=== PATIENT | female | born 1950 | race Caucasian/White ===

== ENCOUNTER 2016-05-09 13:18 | Emergency (ER) | payer MEDICARE, OTHER ==
[2016-05-09 14:08] VITALS: BP 179/85
--- NOTE | 2016-05-09 14:53 | RAD ---
INDICATION: Left hand pain at the base of the third and fourth metacarpals after a fall COMPARISON: None. TECHNIQUE: 4 views left wrist. REPORT: The visualized bones are properly aligned and well corticated. Degenerative changes include sclerotic change and bony remodeling at the metacarpal trapezium joint with a small degree of radial subluxation of the metacarpal relative to the carpal bones. There is mild narrowing at the radiocarpal joint with sclerotic changes distal radius. There is no acute fracture, dislocation or other focal osseous abnormality. IMPRESSION: Degenerative changes as described above without radiographic identification of acute fracture or dislocation. If the patient's symptoms persist, follow-up imaging is recommended.
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
== END 2016-05-09 15:17 | disposition home or self-care (01) ==
LOC: UCEAST 13:18
DX: S63.502A Unspecified sprain of left wrist, initial encounter (principal); W18.30XA Fall on same level, unspecified, initial encounter; Y93.K1 Activity, walking an animal; I10 Essential (primary) hypertension; Z88.5 Allergy status to narcotic agent; Z88.4 Allergy status to anesthetic agent; Z91.030 Bee allergy status; Z88.2 Allergy status to sulfonamides; Z91.048 Other nonmedicinal substance allergy status; G43.909 Migraine, unspecified, not intractable, without status migrainosus
CPT/HCPCS: 99212; G0463

== ENCOUNTER 2016-07-28 08:45 | Emergency (ER) | payer OTHER ==
[2016-07-28 08:54] VITALS: BP 151/86
--- NOTE | 2016-07-28 11:01 | UC ---
Annalee Campos Alok, scribed for Roger Sharma MD on 07/28/16 at 0905 . Cardiac HPI - HPI Summary HPI Summary: 65F presents to the [facility] with CP at the mid-sternal starting 2 days ago. Pt states that 2 nights ago experiencing sharp CP waking her up in the night lasting 2.5 hours before subsiding after taking 3 rolaids. At worst this pain was at a 8 out of 10 in severity. Since then, pt c/o chest "heaviness" at a 2/ 10 in severity. Pt states her CP is worse when supine and worsens with food. Pt also notes dizziness. Pt denies diaphoresis, nausea, or SOB. PMHx includes hypotension, HLD, h/o migraine, GERD, hiatal hernia, chronic lower back pain, and chronic lower extremity edema. Pt takes 360 mg Propranolol, Protonics, and Excedrin Migraine. Pt took Excedrin Migraine today [employer] DES[employer]. - History of Current Complaint Chief Complaint: UCChestPain Stated Complaint: CHEST COMPLAINT Hx Obtained From: Patient Onset/Duration: Lasting Days, Still Present Initial Severity: Moderate Current Severity: Moderate Pain Intensity: 3 Chest Pain Location: Mid Sternal Character: Heaviness - today, Sharp/Stabbing - 3 days ago Aggravating: Position Alleviating: Medication - Rolaid Associated Signs & Symptoms: Positive: Chest Pain, Dizziness. Negative: SOB, Fever, Nausea/Vomiting - Allergy/Home Medications Allergies/Adverse Reactions: Allergies Allergy/AdvReac Type Severity Reaction Status Date / Time Naloxone [From Talwin Nx] Allergy Unknown Unknown Verified 07/28/16 08:55 Reaction Details Oxycodone [From Oxycontin] Allergy Unknown Unknown Verified 07/28/16 08:55 Reaction Details Pentazocine [From Talwin Nx] Allergy Unknown Unknown Verified 07/28/16 08:55 Reaction Details Procaine [From Novocain] Allergy Unknown Unknown Verified 07/28/16 08:55 Reaction Details Verapamil [From Calan SR] Allergy Unknown Unknown Verified 07/28/16 08:55 Reaction Details Adhesive Tape Allergy Rash Verified 07/28/16 08:55 Prednisone Allergy Unknown Verified 07/28/16 08:55 Reaction Details Pregabalin [From Lyrica] Allergy Hives/Diff. Verified 07/28/16 08:56 Breathing/I tching Sulfa Drugs Allergy Unknown Verified 07/28/16 08:55 Reaction Details bees Allergy Unknown Uncoded 07/28/16 08:55 Reaction Details PMH/Surg Hx/FS Hx/Imm Hx - Additional Past Medical History Additional PMH: HX; HYPOTENSION GI/ History: Gastroesophageal Reflux - Surgical History Surgical History: Yes Surgery Procedure, Year, and Place: [facility]) inguinal hernia repair w/ mesh, [facility]right) inguinal hernia repair w/mesh,. [facility] (right) wrist , [facility] (left) carpal tunnel, 07/18 [facility] gastroscopy w/esophageal biopsy + colonscopy w/biopsy, 06/20 [facility] (right) carpal tunnel, 08/20 [facility] (left) carpal tunnel, 03/24 [facility]. colonscopy w/biopsy, 12/26 [facility] gastroscopy w/CLOtest & biopsy, tonsilectomy, ovarian cyst removal, tubal ligation - Family History Known Family History: Positive: Cardiac Disease, Hypertension - Social History Lives: With Family Alcohol Use: Occasionally Substance Use Type: None, Marijuana Smoking Status (MU): Never Smoked Tobacco Review of Systems Constitutional: Negative Respiratory: Negative Cardiovascular: Chest Pain Musculoskeletal: Negative All Other Systems Reviewed And Are Negative: Yes Physical Exam Triage Information Reviewed: Yes Appearance: Well-Appearing, No Pain Distress Vital Signs: Initial Vital Signs Temp 96.9 F 07/28/16 08:50 Pulse 57 07/28/16 08:50 Resp 20 07/28/16 08:50 BP 151/86 07/28/16 08:50 Pulse Ox 98 07/28/16 08:50 Vital Signs Reviewed: Yes Eyes: Positive: Other: - EOMI, ROXANN ENT Exam: Normal Neck: Positive: Supple, Nontender Respiratory: Positive: Lungs clear, Normal breath sounds Cardiovascular: Positive: Bradycardia Abdomen Description: Positive: Soft, Other: - Mild tenderness of the Epigastrium Bowel Sounds: Positive: Present Musculoskeletal Exam: Normal Musculoskeletal: Positive: Strength Intact, ROM Intact Neurological Exam: Normal Neurological: Positive: Other: - alert & oriented x3. Sensory/Motor Intact Psychological: Positive: Other: - affect/mood appropriate Skin: Positive: Other - warm, dry, color reflects adequate perfusion Diagnostics - EKG Cardiac Rate: Bradycardia - 55 bpm Cardiac Rhythm: Other Rhythm: New - TIME: 0848. Flip T-waves in III Ectopy: None - Assessment/Plan Course Of Treatment: Pt medications reviewed this visit. TOLD THE PATIENT TO BE TRANSPORTED TO ED BY AMBULANCE. SHE DECLINED. SHE STATED SHE NEEDED TO CARE FOR HER GRANDSON AND WOULD GO TO THE ED AFTER SHE TOOK CARE OF HIM. I DISCUSSED RISKS OF NOT HAVING IMMEDIATE CARE. PATIENT SIGNED THE AMA FORM. - Clinical Impression Provider Diagnoses: CHEST AND EPIGASTRIC PAIN. Discharge - Discharge Plan Condition: Guarded Disposition: AGAINST MEDICAL ADVICE Referrals: Ghulam Castellon MD [Primary Care Provider] - The documentation as recorded by the Annalee chirinos Alok accurately reflects the service I personally performed and the decisions made by me, Roger Sharma MD.
== END 2016-07-28 09:15 | disposition left against medical advice (07) ==
LOC: UCEAST 08:45
DX: R07.9 Chest pain, unspecified (principal); R10.13 Epigastric pain; Z88.5 Allergy status to narcotic agent; Z88.2 Allergy status to sulfonamides
CPT/HCPCS: 93005; 99202; G0463

== ENCOUNTER 2016-08-05 12:20 | Observation (INO) | payer MEDICARE, OTHER ==
[2016-08-05] MEDS ORDERED: NS 0.9% 1000 ML* 1,000 ML IV ONE (15:01)
[2016-08-05] MEDS ORDERED: Aspirin Low Dose CHEW TAB* 81 MG PO ONE (15:01)
[2016-08-05] MEDS ORDERED: Pantoprazole IV* 40 MG IV ONE (15:04)
[2016-08-05 15:29] LABS: Hematocrit 40 % (35-47); Hemoglobin 13.1 g/dl (12.0-16.0); Mean Corpuscular HGB Conc 33 g/dl (31-36); Mean Corpuscular Hemoglobin 29 pg (27-31); Mean Corpuscular Volume 90 fL (80-97); Mean Platelet Volume 9 um3 (7.4-10.4); Red Blood Count 4.44 10^6/ul (4.0-5.4); Red Cell Distribution Width 13 % (10.5-15); White Blood Count 7.8 10^3/ul (3.5-10.8)
[2016-08-05 15:44] LABS: Albumin 3.7 g/dL (3.2-5.2); BUN/Creatinine Ratio 17.2 (8-20); Calcium 9.2 mg/dL (8.6-10.3); EGFR African American 83.8 (>60); EGFR Non-African American 65.1 (>60); Globulin 2.9 g/dL (2-4); Total Bilirubin 0.7 mg/dL (0.2-1.0); Total Protein 6.6 g/dL (6.4-8.9)
[2016-08-05 15:46] LABS: Troponin I 0.01 ng/mL (<0.04)
[2016-08-05 15:49] LABS: Potassium 3.7 mmol/L (3.5-5.0)
--- NOTE | 2016-08-05 16:29 | RAD ---
INDICATION: Chest pain. Pneumonia. CHF COMPARISON: August 01, 1999 TECHNIQUE: PA and lateral dual-energy views were obtained. FINDINGS: Bones/Soft Tissues: There are no acute bony findings. Cardiomediastinal: The cardiomediastinal silhouette is normal. Lungs: There are no infiltrates. Pleura: There are no pleural effusions. Other: None IMPRESSION: NO ACTIVE DISEASE
--- NOTE | 2016-08-05 16:29 | RAD ---
INDICATION: Right upper quadrant pain. COMPARISON: Comparison is made with a prior CT of the abdomen and pelvis from December 20, 2014. TECHNIQUE: Multiple real-time images of the right upper quadrant were obtained. FINDINGS: There is sludge present within the gallbladder. No gallstones are seen. No gallbladder wall thickening is noted. No positive sonographic Gramajo sign was present. No intra or extrahepatic ductal distention is present. The common bile duct measured 0.5 cm in diameter. The liver is normal in size without significant focal abnormality. The pancreas is partially obscured by overlying bowel gas. The right kidney is normal in size without evidence for hydronephrosis. IMPRESSION: SLUDGE WITHIN THE GALLBLADDER WITHOUT EVIDENCE FOR ACUTE CHOLECYSTITIS.
[2016-08-05] MEDS ORDERED: Al Hydrox/Mg Hydrox/Simet LIQ* 30 ML UDC PO PRN (18:36)
[2016-08-05] MEDS ORDERED: Ondansetron INJ* 2 MG/ML VIAL IV PRN (18:36)
[2016-08-05] MEDS ORDERED: Morphine ORAL.SOLN 10 mg* 2 MG/ML UDC 5 ml PO PRN (18:38)
[2016-08-05] MEDS ORDERED: Lidocaine PATCH 5%* 1 PATCH TRANSDERM PRN (18:38)
[2016-08-05] MEDS ORDERED: Polyethylene Glycol 3350* 17 GM PACKET PO PRN (18:38)
[2016-08-05] MEDS ORDERED: Magnesium CITRATE* 300 ML BTL PO ONE (18:38)
[2016-08-05] MEDS ORDERED: BUTALBITAL ASPIRIN CAFFEINE PO PRN (18:38)
--- NOTE | 2016-08-05 18:41 | ED ---
Steven Campos Salem, scribed for Mitchell Gould MD on 08/05/16 at 1503 . HPI Chest Pain - HPI Summary HPI Summary: Patient is a 65 y/o F who presents to the ED with intermittent mid-sternal chest discomfort since yesterday (resolved last night, but returned this morning at 0700). She states pain radiates into her back in between her shoulder blades. Sx began 11 days ago in the middle of the night and lasted 2.5 hours. It then returned 1 weak ago and lasted 1 hour, before returning yesterday. She denies SOB, fever, chills, palpitations, pain in calves, or diaphoresis, but reports nausea, uncomfortable abd, and constipation. Pain is not aggravated with exertion, but is with PO intake. Thus, she denies eating today. Pt states that she does not usually eat before going to sleep. She states that she has chronic discomfort from a hiatal hernia. Denies recent travel or trauma. She reports hx of GERD controlled with Protonix. She also reports taking Propranolol for migraines and ASA every day (except today). - History of Current Complaint Chief Complaint: EDChestPainROMI Time Seen by Provider: 08/05/16 14:09 Hx Obtained From: Patient Onset/Duration: Started Days Ago, Atraumatic, Still Present Time of Onset: 07:00 Timing: Intermittent Initial Severity: Moderate Current Severity: Moderate Pain Intensity: 7 Pain Scale Used: 0-10 Numeric Chest Pain Location: Mid Sternal Chest Pain Radiates: Yes Chest Pain Radiates To:: Back Character: Other: - Discomfort. Aggravating Factor(s): Other: - PO intake. Alleviating Factor(s): Nothing Associated Signs and Symptoms: Positive: Chest Pain - Allergy/Home Medications Allergies/Adverse Reactions: Allergies Allergy/AdvReac Type Severity Reaction Status Date / Time Naloxone [From Talwin Nx] Allergy Unknown Unknown Verified 07/28/16 08:55 Reaction Details Oxycodone [From Oxycontin] Allergy Unknown Unknown Verified 07/28/16 08:55 Reaction Details Pentazocine [From Talwin Nx] Allergy Unknown Unknown Verified 07/28/16 08:55 Reaction Details Procaine [From Novocain] Allergy Unknown Unknown Verified 07/28/16 08:55 Reaction Details Verapamil [From Calan SR] Allergy Unknown Unknown Verified 07/28/16 08:55 Reaction Details Adhesive Tape Allergy Rash Verified 07/28/16 08:55 Prednisone Allergy Unknown Verified 07/28/16 08:55 Reaction Details Pregabalin [From Lyrica] Allergy Hives/Diff. Verified 07/28/16 08:56 Breathing/I tching Sulfa Drugs Allergy Unknown Verified 07/28/16 08:55 Reaction Details bees Allergy Unknown Uncoded 07/28/16 08:55 Reaction Details Home Medications: Home Medications Biotin 5,000 mcg PO DAILY 08/05/16 [History Confirmed 08/05/16] Ftszegsoca-Ktyqmkw-Knyhvzju [Butalbital/Aspirin/Caffei 50-325-40 mg] 1 cap PO Q4HR PRN 08/05/16 [History Confirmed 08/05/16] Cyclosporine 0.05% OPHTH (NF) [Restasis 0.05% OPHTH] 1 drop BOTH EYES BID [History Confirmed 08/05/16] Oykpioqkulb-YYA-Kax C-Manganes [Glucosamine MSM Complex] 1 tab PO BID 08/05/16 [ History Confirmed 08/05/16] Lysine HCl [l-Lysine] 500 mg PO TID 08/05/16 [History Confirmed 08/05/16] Meloxicam(NF) [Mobic(NF)] 15 mg PO DAILY 08/05/16 [History Confirmed 08/05/16] Morphine TAB (NF) 15 mg PO BID PRN 08/05/16 [History Confirmed 08/05/16] Morphine TAB Extended Rel(*) [Ms Contin(*)] 30 mg PO BID 08/05/16 [History Confirmed 08/05/16] Pantoprazole TAB (NF) [Protonix TAB (NF)] 40 mg PO DAILY 08/05/16 [History Confirmed 08/05/16] Polyethylene Glycol 3350* [Miralax*] 17 gm PO DAILY PRN 08/05/16 [History Confirmed 08/05/16] Polyethylene Glycol 3350* [Miralax*] 17 gm PO DAILY PRN 08/05/16 [History Confirmed 08/05/16] Prasterone (Dhea) [Dhea 50] 50 mg PO BID 08/05/16 [History Confirmed 08/05/16] Propranolol TAB* [Inderal TAB*] 60 mg PO BID 08/05/16 [History Confirmed ] Propranolol TAB* [Inderal TAB*] 60 mg PO TID 08/05/16 [History Confirmed ] Simvastatin TAB(NF) [Zocor(NF)] 20 mg PO DAILY 08/05/16 [History Confirmed 08/05] PMH/Surg Hx/FS Hx/Imm Hx Endocrine/Hematology History: Denies: Hx Diabetes, Hx Thyroid Disease Cardiovascular History: Reports: Hx Hypercholesterolemia Denies: Hx Congestive Heart Failure, Hx Hypertension Respiratory History: Denies: Hx Asthma, Hx Chronic Obstructive Pulmonary Disease (COPD) GI History: Reports: Hx Diverticulosis, Other GI Disorders - (left & right) inguinal hernia repairs w/mesh insertion Denies: Hx Ulcer History: Denies: Hx Renal Disease Musculoskeletal History: Reports: Hx Fibromyalgia, Other Musculoskeletal History - ankylosing spondylitis, TMJ Neurological History: Reports: Hx Migraine - Surgical History Surgery Procedure, Year, and Place: [facility] [place] w/ mesh, [facility] [place] inguinal hernia repair w/mesh,. [facility] (right) wrist , [facility] (left) carpal tunnel, 07/18 [facility] [place] w/esophageal biopsy + colonscopy w/biopsy, 06/20 [facility] (right) carpal tunnel, 08/20 [facility] (left) carpal tunnel, 03/24 [facility]. colonscopy w/biopsy, 12/26 [facility] [place] w/CLOtest & biopsy, tonsilectomy, ovarian cyst removal, tubal ligation Infectious Disease History: No Infectious Disease History: Denies: Hx Clostridium Difficile, Hx Hepatitis, Hx Human Immunodeficiency Virus (HIV), Hx of Known/Suspected MRSA, Hx Shingles, Hx Tuberculosis, Hx Known/ Suspected VRE, Hx Known/Suspected VRSA, History Other Infectious Disease, Traveled Outside the [place] in Last 30 Days - Family History Known Family History: Positive: Cardiac Disease, Hypertension, Other - Blood clots. Pancreatitis. - Social History Alcohol Use: Occasionally Hx Substance Use: Yes Substance Use Type: Reports: Marijuana Substance Use Comment - Amount & Last Used: Occasionally for migraines Hx Tobacco Use: No Smoking Status (MU): Never Smoked Tobacco Review of Systems Negative: Fever, Chills, Skin Diaphoresis Positive: Chest Pain. Negative: Palpitations Negative: Shortness Of Breath Positive: Abdominal Pain, Nausea Positive: other - Constipation. Musculoskeletal: Other - No pain in calves. All Other Systems Reviewed And Are Negative: Yes Physical Exam - Summary Physical Exam Summary: The patient is well-nourished in no acute distress and in no acute pain. Alert and cooperative. The skin is warm and dry and skin color reflects adequate perfusion. HEENT: The head is normocephalic and atraumatic. The pupils are equal and reactive. The conjunctivae are clear and without drainage. Nares are patent and without drainage. Mouth reveals moist mucous membranes and the throat is without erythema and exudate. The external ears are intact. The ear canals are patent and without drainage. The tympanic membranes are intact. Neck is supple with full range of motion and non-tender. There are no carotid bruits. There is no neck vein distension. Respiratory: Reproducible chest wall pain. Lungs are clear to auscultation and breath sounds are symmetrical and equal. Cardiovascular: Hear is regular rate and rhythm. There is no murmur or rub auscultated. There is no peripheral edema and pulses are symmetrical and equal. Abdomen: The abdomen is soft. Marked epigastric and RUQ pain. There are normal bowel sounds heard in all four quadrants and there is no organomegaly palpated. Musculoskeletal: There is no back pain noted. Extremities are non-tender with full range of motion. There is good capillary refill. Neurological: Patient is alert and oriented to person, place and time. The patient has symmetrical motor strength in all four extremities. Psychiatric: The patient has an appropriate affect and does not exhibit any anxiety or depression. Triage Information Reviewed: Yes Vital Signs On Initial Exam: Initial Vitals Temp Pulse Resp BP Pulse Ox 97.8 F 98 16 135/82 99 08/05/16 12:22 08/05/16 12:22 08/05/16 12:22 08/05/16 12:22 08/05/16 12:22 Vital Signs Reviewed: Yes - Cedric Coma Scale Coma Scale Total: 15 Diagnostics - Vital Signs Vital Signs Temp Pulse Resp BP Pulse Ox 08/05/16 14:02 99.0 F 65 19 115/47 97 08/05/16 14:00 115/47 08/05/16 12:22 97.8 F 98 16 135/82 99 - Laboratory Lab Results: Lab Results 08/05/16 08/05/16 08/05/16 Range/Units 15:20 15:20 15:20 WBC 7.8 (3.5-10.8) 10^3/ul RBC 4.44 (4.0-5.4) 10^6/ul Hgb 13.1 (12.0-16.0) g/dl Hct 40 (35-47) % MCV 90 (80-97) fL MCH 29 (27-31) pg MCHC 33 (31-36) g/dl RDW 13 (10.5-15) % Plt Count 169 (150-450) 10^3/ul MPV 9 (7.4-10.4) um3 Neut % (Auto) 83.5 H (38-83) % Lymph % (Auto) 10.0 L (25-47) % Baca % (Auto) 5.6 (1-9) % Eos % (Auto) 0.5 (0-6) % Baso % (Auto) 0.4 (0-2) % Absolute Neuts (auto) 6.5 (1.5-7.7) 10^3/ul Absolute Lymphs (auto) 0.8 L (1.0-4.8) 10^3/ul Absolute Monos (auto) 0.4 (0-0.8) 10^3/ul Absolute Eos (auto) 0 (0-0.6) 10^3/ul Absolute Basos (auto) 0 (0-0.2) 10^3/ul Absolute Nucleated RBC 0 10^3/ul Nucleated RBC % 0 D-Dimer, Quantitative (Less Than 230) ng/mL Sodium 136 (133-145) mmol/L Potassium 3.7 (3.5-5.0) mmol/L Chloride 102 (101-111) mmol/L Carbon Dioxide 28 (22-32) mmol/L Anion Gap 6 (2-11) mmol/L BUN 15 (6-24) mg/dL Creatinine 0.87 (0.51-0.95) mg/dL Est GFR ( Amer) 83.8 (>60) Est GFR (Non-Af Amer) 65.1 (>60) BUN/Creatinine Ratio 17.2 (8-20) Glucose 84 (70-100) mg/dL Lactic Acid 0.7 (0.5-2.0) mmol/L Calcium 9.2 (8.6-10.3) mg/dL Total Bilirubin 0.70 (0.2-1.0) mg/dL AST 111 H (13-39) U/L ALT 140 H (7-52) U/L Alkaline Phosphatase 101 (34-104) U/L Troponin I 0.01 (<0.04) ng/mL B-Natriuretic Peptide ( - 100) pg/mL Total Protein 6.6 (6.4-8.9) g/dL Albumin 3.7 (3.2-5.2) g/dL Globulin 2.9 (2-4) g/dL Albumin/Globulin Ratio 1.3 (1-3) Amylase 46 (29-103) U/L Lipase 21 (11.0-82.0) U/L 08/05/16 08/05/16 Range/Units 15:20 15:20 WBC (3.5-10.8) 10^3/ul RBC (4.0-5.4) 10^6/ul Hgb (12.0-16.0) g/dl Hct (35-47) % MCV (80-97) fL MCH (27-31) pg MCHC (31-36) g/dl RDW (10.5-15) % Plt Count (150-450) 10^3/ul MPV (7.4-10.4) um3 Neut % (Auto) (38-83) % Lymph % (Auto) (25-47) % Baca % (Auto) (1-9) % Eos % (Auto) (0-6) % Baso % (Auto) (0-2) % Absolute Neuts (auto) (1.5-7.7) 10^3/ul Absolute Lymphs (auto) (1.0-4.8) 10^3/ul Absolute Monos (auto) (0-0.8) 10^3/ul Absolute Eos (auto) (0-0.6) 10^3/ul Absolute Basos (auto) (0-0.2) 10^3/ul Absolute Nucleated RBC 10^3/ul Nucleated RBC % D-Dimer, Quantitative 275 H (Less Than 230) ng/mL Sodium (133-145) mmol/L Potassium (3.5-5.0) mmol/L Chloride (101-111) mmol/L Carbon Dioxide (22-32) mmol/L Anion Gap (2-11) mmol/L BUN (6-24) mg/dL Creatinine (0.51-0.95) mg/dL Est GFR ( Amer) (>60) Est GFR (Non-Af Amer) (>60) BUN/Creatinine Ratio (8-20) Glucose (70-100) mg/dL Lactic Acid (0.5-2.0) mmol/L Calcium (8.6-10.3) mg/dL Total Bilirubin (0.2-1.0) mg/dL AST (13-39) U/L ALT (7-52) U/L Alkaline Phosphatase (34-104) U/L Troponin I (<0.04) ng/mL B-Natriuretic Peptide 93 ( - 100) pg/mL Total Protein (6.4-8.9) g/dL Albumin (3.2-5.2) g/dL Globulin (2-4) g/dL Albumin/Globulin Ratio (1-3) Amylase (29-103) U/L Lipase (11.0-82.0) U/L Result Diagrams: 08/05/16 15:20 08/05/16 15:20 Lab Statement: Any lab studies that have been ordered have been reviewed, and results considered in the medical decision making process. - Radiology CXR Radiology Interpretation Completed By: Radiologist - IMPRESSION: NO ACTIVE DISEASE. - Ultrasound No standard instances Ultrasound Interpretation Completed By: Radiologist - ABD IMPRESSION: SLUDGE WITHIN THE GALLBLADDER WITHOUT EVIDENCE FOR ACUTE CHOLECYSTITIS. - EKG 1231 Cardiac Rate: NL - NSR @ 72 bpm. EKG Interpretation: Nonspecific ST changes, all over. Nml axis. PRWP. Occasional PACs. Re-Evaluation - Re-Evaluation First Eval Re-Evaluation Time: 17:01 Comment: Not feeling well. Will consult hospitalist. Chest Pain Course/Dx - Course Course Of Treatment: 65 y/o F presents with intermittent mid-sternal chest discomfort that radiates into her back since yesterday (resolved last night, but returned this morning at 0700). She denies SOB, fever, chills, palpitations , pain in calves, or diaphoresis, but reports nausea, uncomfortable abd, and constipation. She received ASA, fluids, and Protonix in the ED course. EKG shows . CXR was negative. US shows, per radiology, IMPRESSION: SLUDGE WITHIN THE GALLBLADDER WITHOUT EVIDENCE FOR ACUTE CHOLECYSTITIS. Pt will be admitted. - Chest Pain Differential Diagnosis/HQI/PQRI: Acute NH, ACS, GI Disease, Lower Respiratory Infection, Other: - gallbladder disease - Diagnoses Provider Diagnoses: Chest pain - Provider Notifications Discussed Care Of Patient With: Monique Thakur Time Discussed With Above Provider: 17:08 Instructed by Provider To: Admit As Inpatient Admit/Transition Orders Completed By ED Provider: Yes Discharge - Discharge Plan Condition: Stable Disposition: ADMITTED TO [facility] Referrals: Ghulam Castellon MD [Primary Care Provider] - The documentation as recorded by the Steven chirinos Salem accurately reflects the service I personally performed and the decisions made by , Mitchell Gould MD.
--- NOTE | 2016-08-05 18:48 | HP ---
History of Present Illness - History of Present Illness Reason for Visit: Chest Pain History of Present Illness: This is a 65 yo obese white female with PMH of hyperlipidemia, GERD, hiatal hernia, fibromyalgia, and ankylosing spondylitis that presents with substernal chest pain and constipation. Patient has observed three episodes of the pain: once on the , two days ago, and yesterday which has continue today. No aggravating symptoms and some alleviation with Rolaids. Patient states pain in dull in center of chest that has since migrated downward near her xiphoid process. Yesterday was the first time the pain manifested to between her shoulder blades. Patient also states she has been severely constipated and have has a bowel movement today and yesterday but with minimal stool. She has tried Miralax without relief. Patient states abdomen is crampy and bloated with some associated nausea. She denies diarrhea, vomiting, melena, or hematochezia. She admits to symptoms of associated migraine for the past two days but has migraine history in the past. She denies SOB or palpitations. 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 Gastrointestinal: Constipation, GERD, Other - Hiatal Hernia Musculoskeletal: Other - Ankylosis spondylitis Rheumatologic: Fibromyalgia - Past Surgical History Past Surgical History: Hernia Repair, Other - Wrist Surgery, Carpal tunnel, ovarian cyst, Tubal Ligation - Past Family History Family History: Other - Brother: [place], Mother: Angina - Past Social History Smoke: No Occupation: Disabled Alcohol: Rare Drugs: Marijuana Review of Systems - Review of Systems Other: General: Denies fever, chills, sweats Skin: Denies rashes, lesions Eyes: denies changes in vision Lungs: Denies SOB Heart: Positive for chest pain Denies palpitations Abdomen: Positive for cramps, bloating, abdominal pain, constipation, nausea Denies: Diarrhea, melena, hematochezia, vomiting : Denies hematuria Extremities: Denies edema, muscle pain - Medications/Allergies Allergies/Adverse Reactions: Allergies Allergy/AdvReac Type Severity Reaction Status Date / Time Naloxone [From Talwin Nx] Allergy Unknown Unknown Verified 07/28/16 08:55 Reaction Details Oxycodone [From Oxycontin] Allergy Unknown Unknown Verified 07/28/16 08:55 Reaction Details Pentazocine [From Talwin Nx] Allergy Unknown Unknown Verified 07/28/16 08:55 Reaction Details Procaine [From Novocain] Allergy Unknown Unknown Verified 07/28/16 08:55 Reaction Details Verapamil [From Calan SR] Allergy Unknown Unknown Verified 07/28/16 08:55 Reaction Details Adhesive Tape Allergy Rash Verified 07/28/16 08:55 Prednisone Allergy Unknown Verified 07/28/16 08:55 Reaction Details Pregabalin [From Lyrica] Allergy Hives/Diff. Verified 07/28/16 08:56 Breathing/I tching Sulfa Drugs Allergy Unknown Verified 07/28/16 08:55 Reaction Details bees Allergy Unknown Uncoded 07/28/16 08:55 Reaction Details Medications: Home medications: Contin ER 30 mg 1-2 x/day MS Contin immediate release 15 mg 1-2 x/day Propranolol 60 mg PO BID for migraines Mobic 15 mg PO daily Simvastatin 20 mg PO daily Restasis .05 mg 1 drop each eye BID Biotin 5000 mcg once daily HCTZ 25 mg once daily as needed for edema Polyethylene Glycol 17 g as needed Butalbital/acetaminophen/caffeine as needed for migraine Meclizine 25 mg 1-3 x/day as needed Lysine 500 mg 1-3x/day as needed Glucosamine 1500 mg PO BID Dehydroepiandrosterone 50 mg 1-2x/day Exam - Exam Vital Signs: Vital Signs (72 hours) 08/05/16 08/05/16 08/05/16 14:30 15:00 15:30 Temperature Pulse Rate 60 62 Respiratory 16 18 17 Rate Blood Pressure 132/69 125/70 (mmHg) O2 Sat by Pulse 97 96 Oximetry 08/05/16 16:00 Temperature Pulse Rate 56 Respiratory 15 Rate Blood Pressure 142/62 (mmHg) O2 Sat by Pulse 97 Oximetry General: Patient is a obese white women who is pleasant and cooperative with exam in [facility]. Lungs: Chest is symmetric and lungs are clear to auscultation across all love. Heart: RRR, No JVD, no murmurs, rubs, or gallops. Abdomen: Normoactive bowel sounds in all four quadrants. Abdomen is obese and soft with tenderness in epigastric region. Neuro: Alert and Oriented X3 Extremities: DP and PT 2+ bilaterally, no edema. Lab Results: WBC 7.8 10^3/ul (3.5-10.8) 08/05/16 15:20 RBC 4.44 10^6/ul (4.0-5.4) 08/05/16 15:20 Hgb 13.1 g/dl (12.0-16.0) 08/05/16 15:20 Hct 40 % (35-47) 08/05/16 15:20 MCV 90 fL (80-97) 08/05/16 15:20 MCH 29 pg (27-31) 08/05/16 15:20 MCHC 33 g/dl (31-36) 08/05/16 15:20 RDW 13 % (10.5-15) 08/05/16 15:20 Plt Count 169 10^3/ul (150-450) 08/05/16 15:20 MPV 9 um3 (7.4-10.4) 08/05/16 15:20 Neut % (Auto) 83.5 % (38-83) H 08/05/16 15:20 Lymph % (Auto) 10.0 % (25-47) L 08/05/16 15:20 Becker % (Auto) 5.6 % (1-9) 08/05/16 15:20 Eos % (Auto) 0.5 % (0-6) 08/05/16 15:20 Baso % (Auto) 0.4 % (0-2) 08/05/16 15:20 Absolute Neuts (auto) 6.5 10^3/ul (1.5-7.7) 08/05/16 15:20 Absolute Lymphs (auto) 0.8 10^3/ul (1.0-4.8) L 08/05/16 15:20 Absolute Monos (auto) 0.4 10^3/ul (0-0.8) 08/05/16 15:20 Absolute Eos (auto) 0 10^3/ul (0-0.6) 08/05/16 15:20 Absolute Basos (auto) 0 10^3/ul (0-0.2) 08/05/16 15:20 Absolute Nucleated RBC 0 10^3/ul 08/05/16 15:20 Nucleated RBC % 0 08/05/16 15:20 D-Dimer, Quantitative 275 ng/mL (Less Than 230) H 08/05/16 15:20 Sodium 136 mmol/L (133-145) 08/05/16 15:20 Potassium 3.7 mmol/L (3.5-5.0) 08/05/16 15:20 Chloride 102 mmol/L (101-111) 08/05/16 15:20 Carbon Dioxide 28 mmol/L (22-32) 08/05/16 15:20 Anion Gap 6 mmol/L (2-11) 08/05/16 15:20 BUN 15 mg/dL (6-24) 08/05/16 15:20 Creatinine 0.87 mg/dL (0.51-0.95) 08/05/16 15:20 Est GFR ( Amer) 83.8 (>60) 08/05/16 15:20 Est GFR (Non-Af Amer) 65.1 (>60) 08/05/16 15:20 BUN/Creatinine Ratio 17.2 (8-20) 08/05/16 15:20 Glucose 84 mg/dL (70-100) 08/05/16 15:20 Lactic Acid 0.7 mmol/L (0.5-2.0) 08/05/16 15:20 Calcium 9.2 mg/dL (8.6-10.3) 08/05/16 15:20 Total Bilirubin 0.70 mg/dL (0.2-1.0) 08/05/16 15:20 AST 111 U/L (13-39) H 08/05/16 15:20 ALT 140 U/L (7-52) H 08/05/16 15:20 Alkaline Phosphatase 101 U/L (34-104) 08/05/16 15:20 Troponin I 0.01 ng/mL (<0.04) 08/05/16 15:20 B-Natriuretic Peptide 93 pg/mL (-100) 08/05/16 15:20 Total Protein 6.6 g/dL (6.4-8.9) 08/05/16 15:20 Albumin 3.7 g/dL (3.2-5.2) 08/05/16 15:20 Globulin 2.9 g/dL (2-4) 08/05/16 15:20 Albumin/Globulin Ratio 1.3 (1-3) 08/05/16 15:20 Amylase 46 U/L (29-103) 08/05/16 15:20 Lipase 21 U/L (11.0-82.0) 08/05/16 15:20 Diagnostic Studies: EKG: Sinus rhythm with borderline flat T waves. CXR: No active disease Abdominal U/S: sludge in the gallbladder, no evidence of cholithiasis/ cholecystitis Assessment/Plan - Assessment/Plan Assessment: This is a 65 yo obese white female with PMH of GERD, hiatal hernia, hyperlipidemia, migraines, fibromyalgia, ankylosing spondylitis that presents to ER with chest pain and constipation. 1) Chest Pain: Given patient history and lab/diagnostic results its deemed more likely that the source of patient chest pain is due to GI etiology. Patient is on multiple opioids which has caused multiple days of constipation that could be affecting patients hiatal hernia the source of substernal chest pain. Patient does have risk factor for a cardiac source, EKG, trop, and CXR came back negative for anything acute. Discussed option of cardiac stress test with patient as it would help with r/o of cardiac etiology but she states she would rather do on an outpatient basis. She has been admitted for observation at this time. 2) Constipation: Likely secondary to chronic opioid use, patient will be started on Senna BID and PRN Miralax at this time. 3) GERD/Hiatal Hernia: Cont Protonix 4) Hyperlipidemia: Cont Statin 5) Migraines: Continue Propranolol, butalbital acetaminophen caffeine. 6) Ankylosing Spondylitis/Chronic Pain: Cont Morphine, Lidocaine patch. 7) Fibromyalgia 8) DVT Prophylaxis: Lovenox 9) Code Status: Full code Disposition: Observation status
[2016-08-05] MEDS ORDERED: Enoxaparin(*) 40 MG/0.4 ML SYR SUBCUT SCH (19:00)
[2016-08-05] MEDS ORDERED: Lidocaine Patch REMOVE* 1 NOTE MISC PATCH OFF PRN (19:18)
[2016-08-05] MEDS: Senna TAB PO SCH (20:34)
[2016-08-05] MEDS: Morphine TAB Extended Release (*) 30 MG TAB.ER PO SCH (20:34)
[2016-08-05] MEDS: Docusate CAP* 100 MG PO SCH (20:34)
[2016-08-05] MEDS: Propranolol TAB* 60 MG PO SCH (20:35)
[2016-08-05] MEDS: Cyclosporine 0.05% OPHTH (NF) 0.4 ML VIAL BOTH EYES SCH (20:40)
--- NOTE | 2016-08-06 03:33 | HP ---
CC: Dr. Castellon * ADMISSION HISTORY AND PHYSICAL: DATE OF ADMISSION: 08/05/16 PRIMARY CARE PROVIDER: Dr. Castellon. ADMITTING PROVIDER: NICHOLAS Montoya. SUPERVISING PHYSICIAN: Monique Thakur MD * (DICTATED BY NICHOLAS MONTOYA) CHIEF COMPLAINT: Chest pain. HISTORY OF PRESENT ILLNESS: This is a 65-year-old female with history of fibromyalgia, ankylosing spondylitis, GERD, migraine headaches, hyperlipidemia, and hiatal hernia who presented to the emergency department with complaints of chest pain. The patient has had 2 similar, but less significant episodes in the last couple of weeks that have resolved with the use of antacids, but starting yesterday she had more severe pain in the substernal region eventually migrating down to the epigastric area that radiated through to her back between her shoulder blades. The back pain has since resolved, but the substernal/ epigastric discomfort has persisted. She has an associated headache, but reports frequent migraine headaches and this is not terribly unusual for her. She denies associated shortness of breath. She is mildly nauseated, but no vomiting. No radiation of her pain. She has been significantly constipated and has been over a week since having a normal bowel movement. She generally uses MiraLAX every other day, which helps to keep her regular, but despite using it couple days in a row she has had nothing but small hard stools of low volume. She feels bloated with kind of diffuse abdominal discomfort and reports that her pain seems to get worse when eating. PAST MEDICAL HISTORY: 1. Fibromyalgia. 2. GERD. 3. Hiatal hernia. 4. Ankylosing spondylitis. 5. Migraine headaches. 6. Hyperlipidemia. PAST SURGICAL HISTORY: 1. Tubal ligation. 2. Ovarian cyst removal. 3. Inguinal hernia repair bilaterally. 4. Carpal tunnel release. HOME MEDICATIONS: 1. Biotin 5000 mcg p.o. daily. 2. Fioricet 1 capsule p.o. q.4 hours as needed for headache. 3. Cyclosporin eye drops 0.05% one drop in both eyes twice daily. 4. Hydrochlorothiazide 25 mg p.o. daily. 5. Lidocaine patch 1 patch transdermal apply daily as needed for pain. 6. Lysine 500 mg p.o. t.i.d. 7. Meclizine 25 mg p.o. t.i.d. as needed for dizziness. 8. Morphine tablet 15 mg p.o. twice daily as needed for pain. 9. Morphine extended release tablets 30 mg p.o. twice daily. 10. Protonix 40 mg p.o. daily. 11. MiraLAX 17 g p.o. every other day. 12. DHEA 50 mg p.o. b.i.d. 13. Propranolol 60 mg p.o. b.i.d. 14. Simvastatin 20 mg p.o. daily. FAMILY HISTORY: The patient's brother had a history of heart attack at an unknown age. Mother has angina. SOCIAL HISTORY: The patient admits to regular marijuana use. No regular alcohol use or significant tobacco history. REVIEW OF SYSTEMS: As noted above in HPI. All other systems reviewed and otherwise negative. LABORATORY EVALUATION: CBC shows white blood cell count of 7800, hemoglobin of 13.1, platelet count of 169,000. D-dimer of 275. Comprehensive metabolic panel shows sodium of 136, potassium of 3.7. BUN of 15, creatinine 0.87. Total bilirubin of 0.7. AST 111, alk phos 140. Troponin is negative at 0.01. Lipase normal at 21. IMAGIN. Chest x-ray shows no acute process. 2. Ultrasound of the abdomen shows sludge in the gallbladder. No evidence of acute cholecystitis and no cholelithiasis. 3. EKG shows sinus arrhythmia. PHYSICAL EXAMINATION GENERAL: This is a very pleasant 65-year-old female who is lying in the hospital stretcher. Appears mildly uncomfortable, but certainly not in any distress. VITAL SIGNS: Temperature 97.8 degrees Fahrenheit, pulse 98 beats per minute, respiratory rate 16, oxygen saturation 99% on room air, and blood pressure of 135/82 mmHg. HEENT: Head is normocephalic, atraumatic. Mucous membranes are pink and moist. RESPIRATORY: Lungs are clear to auscultation without wheezes, crackles, or rhonchi. CARDIOVASCULAR: Heart has a regular rate and rhythm without murmurs, rubs, or gallops. ABDOMEN: Soft, but mildly distended and diffusely tender to palpation especially in the epigastric region. EXTREMITIES: There is trace edema bilaterally. SKIN: Limited exam shows no concerning rashes or lesions. PSYCH: The patient is alert and appropriately oriented. ASSESSMENT AND PLAN: This is a 65-year-old female with history significant for chronic pain as well as migraine headaches, GERD, and a known hiatal hernia that presents to the emergency department with complaints of chest pain and associated constipation. She is being subsequently admitted for further observation. 1. Chest pain - the patient's symptoms seem to be GI in origin. She has a known hiatal hernia, which would likely explained the location of her pain. She was complaining of associated back pain yesterday, but that has since resolved. Initial troponin and EKG are unremarkable. She does have a family history of heart disease and a personal history of hyperlipidemia. We will plan to monitor serial troponins. Discussed stress test with the patient, which she declines at this time. We recommended if her symptoms continue that this be pursued as an outpatient. At this time, we will focus on treating her constipation and see if this helps to relieve her current symptoms. 2. Constipation - the patient is on multiple opioids and we will treat with senna and docusate as well as a one-time dose of mag citrate. 3. Elevated transaminases - no elevation of alk phos or total bilirubin and ultrasound showing biliary sludge, but no other acute process. Pattern of her transaminitis would be more consistent perhaps with a fatty infiltration or perhaps mild viral process. 4. GERD. Plan to continue her PPI. 5. Ankylosing spondylitis and fibromyalgia - we will continue her home morphine order. 6. Hyperlipidemia. Continue statin. 7. Code status: The patient is full code. 8. Healthcare proxy is the patient's mother. DISPOSITION: The patient is being admitted to observation for complaints of chest pain. Anticipate likely discharge tomorrow. NICHOLAS MONTOYA [id number]/[facility] #: [id number] FRANCES
[2016-08-06 06:16] LABS: Albumin 3.3 g/dL (3.2-5.2); Direct Bilirubin 0.2 mg/dL (0.03-0.18); Globulin 2.7 g/dL (2-4); Indirect Bilirubin 0.3 mg/dL (0.3-1.0); Total Bilirubin 0.5 mg/dL (0.2-1.0)
[2016-08-06] MEDS ORDERED: Omeprazole CAP* 20 MG PO SCH (07:30)
[2016-08-06 08:27] VITALS: BP 138/72
[2016-08-06] MEDS: Hydrochlorothiazide TAB* 25 MG PO SCH ×2 (08:32→08:40)
[2016-08-06] MEDS: Docusate CAP* 100 MG PO SCH (08:33)
[2016-08-06] MEDS: Morphine TAB Extended Release (*) 30 MG TAB.ER PO SCH (08:33)
[2016-08-06] MEDS: Senna TAB PO SCH (08:33)
[2016-08-06 08:44] LABS: HDL Cholesterol 43.5 mg/dL
[2016-08-06] MEDS: Propranolol TAB* 60 MG PO SCH (08:46)
[2016-08-06] MEDS ORDERED: Atorvastatin* 10 MG TAB PO SCH (09:00)
--- NOTE | 2016-08-06 10:11 | DS ---
DOA: 08/05/2016 DOD: 08/06/2016 Care Team: Admitting Provider: NICHOLAS Rosales Attending Provider: NICHOLAS Rosales Supervising Physician: Dr. Karthik Byrd PCP: Dr. Ghulam Castellon Discharge Diagnosis: 1) Chest Pain 2) Constipation Secondary Diagnosis: 1) GERD/Hiatal Hernia 2) Hyperlipidemia 3) Migraines 4) Ankylosing Spondylitis/Chronic Pain 5) Fibromyalgia Discharge Medications: Contin ER 30 mg 1-2 x/day MS Contin immediate release 15 mg 1-2 x/day Propranolol 60 mg PO BID for migraines Mobic 15 mg PO daily Simvastatin 20 mg PO daily Restasis .05 mg 1 drop each eye BID Biotin 5000 mcg once daily HCTZ 25 mg once daily as needed for edema Polyethylene Glycol 17 g as needed Butalbital/acetaminophen/caffeine as needed for migraine Meclizine 25 mg 1-3 x/day as needed Lysine 500 mg 1-3x/day as needed Glucosamine 1500 mg PO BID Dehydroepiandrosterone 50 mg 1-2x/day Changes to home medications: Continue Senna as needed Continue Miralax as needed Imaging: EKG: Sinus rhythm with borderline flat T waves. CXR: No active disease Abdominal U/S: sludge in the gallbladder, no evidence of cholithiasis/ cholecystitis Hospital Course: This is a 65 yo obese white female with PMH of hyperlipidemia, GERD, hiatal hernia, fibromyalgia, and ankylosing spondylitis that presented to the ER on with substernal chest pain and constipation. Patient had observed three episodes of the pain: once on the , three days ago, and the day prior to admission which prompted patient to go to the ED. No aggravating symptoms and some alleviation with Rolaids. Patient states pain is dull in center of chest that has since migrated downward to subxiphoid process without SOB or palpitations. The pain manifested between her shoulder blades. Patient also states she has been severely constipated with occasional bowel movements with minimal stool and is without diarrhea, vomiting, melena, or hematochezia. She admits to symptoms of associated migraine for the past two days but has a migraine history. Potential causes of cardiac etiology were investigated with negative EKG, CXR, Troponins and patient was placed on telemetry floor for observation. Underwent discussion with patient about possible cardiac stress test while inpatient, but patient states she would like to do on outpatient basis. Lab results yield WBC of 7.8, H&H 13.1/40, platelets 169,000, Sodium: 136, Potassium of 3.7, Chloride : 102, CO2 of 28. BUN 15, Creatinine of 0.87, Total Protein of 6, negative amylase and lipase, and some elevation of liver transaminase at AST 67 and ALT 101 but abdominal ultrasound was negative without evidence of acute disease. Given patient history information, exam, and diagnostics it was ruled that the likely source of patient chest pain was GI in orgin and likely do to patient constipation secondary to chronic opioid use. She was admitted with scheduled orders of Senna, Colace, and PRN Miralax, which was successful after talking with patient today as she had a small bowel movement overnight and a large movement again at 6 AM which seemed to have relieved all her symptoms including the chest pain. She denies any migraines, abdominal pain, hematochezia/melena, n /v, SOB, palpitations and physical exam on day of discharge yield no abnormalities. Follow up plan/disposition: Patient is to be discharged to her home and is to continue to take Senna and miralax as needed if symptoms of chest pain and constipation return and to maintain hydration. She has been instructed to follow through with cardiac stress test on an outpatient basis to help with evaluation as a baseline cardiac function. She is to follow up with her PCP in the next week.
[2016-08-06] MEDS: Cyclosporine 0.05% OPHTH (NF) 0.4 ML VIAL BOTH EYES SCH (11:24)
--- NOTE | 2016-08-07 04:55 | DS ---
CC: Dr. Castellon * DISCHARGE SUMMARY: DATE OF ADMISSION: 08/05/16 DATE OF DISCHARGE: 08/06/16 PRIMARY CARE PROVIDER: Dr. aCstellon. DISCHARGING PROVIDER: NICHOLAS Montoya SUPERVISING PHYSICIAN: Dr. Monique Thakur * (DICTATED BY NICHOLAS MONTOYA) PRIMARY DISCHARGE DIAGNOSES: 1. Chest pain, likely gastrointestinal in origin without evidence of acute coronary syndrome. 2. Constipation - resolved. SECONDARY DISCHARGE DIAGNOSES: 1. Ankylosing spondylitis with chronic back pain. 2. Fibromyalgia. 3. Gastroesophageal reflux disease with hiatal hernia. 4. Hyperlipidemia. 5. Migraine headaches. DISCHARGE MEDICATIONS: 1. Biotin 5000 mcg p.o. daily. 2. Fioricet 1 capsule p.o. q.4 hours as needed for headache. 3. Cyclosporin eye drops 0.05% one drop in both eyes twice a day. 4. Hydrochlorothiazide 25 mg p.o. daily. 5. Lidocaine patch, 1 patch apply transdermally daily as needed. 6. Lysine 500 mg p.o. t.i.d. 7. Meclizine 25 mg p.o. t.i.d. as needed for dizziness. 8. Meloxicam 15 p.o. daily. 9. Morphine 15 mg p.o. b.i.d. as needed for pain. 10. Morphine extended release tablets 30 mg p.o. twice daily. 11. Protonix 40 mg p.o. daily. 12. MiraLAX 17 g p.o. daily. 13. DHEA 50 mg p.o. twice daily. 14. Propranolol 60 mg p.o. twice daily. 15. Simvastatin 20 mg p.o. daily. Medication changes: None. HOSPITAL IMAGIN. Chest x-ray shows no acute process. 2. Gallbladder ultrasound shows evidence of sludge but no cholelithiasis or evidence of acute cholecystitis. 3. EKG shows sinus rhythm without acute ischemic changes. HOSPITAL COURSE: This is a 65-year-old female with ankylosing spondylitis and GERD with hiatal hernia, fibromyalgia, and hyperlipidemia, who presented to the emergency department with complaints of chest pain. The patient has had two similar, but less severe episodes of chest pain in the last couple of weeks that resolved with the use of an antacid. Then starting the day prior to admission, she had constant substernal chest pain and pressure that migrated down to the epigastric area. She had no associated shortness of breath but when the pain was at its worst, it radiated through to her back. That portion of her symptoms had resolved by the time she reached the emergency department. She also reported that she not had a regular bowel movement in greater than a week. She is generally well and has regular bowel movements with MiraLAX taken every other day, but had had small volume of hard stool for several days and felt bloated with some diffuse abdominal tenderness that was worse with eating. Her chest pain was often worst with eating. She has a known hiatal hernia as well. Her initial EKG was unremarkable and troponin negative. No other laboratory abnormalities. The patient was admitted to a period of observation for chest pain rule out. Serial troponins remain negative. Repeat EKG was unremarkable. The patient was aggressively treated for constipation and had a large bowel movement overnight and her complaints of chest pain resolved with this intervention. Discussed the utility of a stress test with the patient, which she declined at this time but encouraged her to discuss this with her primary care provider further. Her symptoms certainly seem to be consistent with GI etiology but she does have a family history of heart disease and a personal history of hyperlipidemia. DISPOSITION AND FOLLOWUP PLAN: The patient is being discharged to home. No changes recommended to her home medication regimen. Followup recommended with her primary care provider within a week of discharge. NICHOLAS MONTOYA [id number] #: [id number] FRANCES
== END 2016-08-06 12:05 | disposition home or self-care (01) ==
LOC: ED 12:20 → MEDTELE 20:16
PROVIDERS: ADMIT Hospitalist; ATTEND Internal Medicine
DX: R07.9 Chest pain, unspecified (principal); K59.00 Constipation, unspecified; M45.9 Ankylosing spondylitis of unspecified sites in spine; M79.7 Fibromyalgia; K21.9 Gastro-esophageal reflux disease without esophagitis; K44.9 Diaphragmatic hernia without obstruction or gangrene; E78.5 Hyperlipidemia, unspecified; G43.909 Migraine, unspecified, not intractable, without status migrainosus; R74.0 Nonspecific elevation of levels of transaminase and lactic acid dehydrogenase [LDH]; Z79.899 Other long term (current) drug therapy; Z88.8 Allergy status to other drugs, medicaments and biological substances; Z88.2 Allergy status to sulfonamides
CPT/HCPCS: 36415; 71020; 76705; 80053; 80061; 80076; 82150; 83605; 83690; 83880; 84484; 85025; 85379; 93005; 96361; 96372; 96374; 99284; A9270-GY; G0378; J1650

== ENCOUNTER 2016-12-05 14:36 | Emergency (ER) | payer MEDICARE ==
[2016-12-05] MEDS ORDERED: Lidocaine 2% VISCOUS* 15 ML UDC SWISH SPIT ONE (16:24)
[2016-12-05 17:07] VITALS: BP 147/75
--- NOTE | 2016-12-06 08:42 | ED ---
Reynaldo Campos Nikita, scribed for Kem Young MD on 12/05/16 at 1630 . Hypertension - HPI Summary HPI Summary: This patient is a 66 year old F presenting to ED with a chief complaint of hypertension since earlier today. The CC is described as 220/110 earlier today. The patient rates the pain 3/10 in severity. Symptoms aggravated by nothing. Symptoms alleviated by spontaneous resolution. Patient reports sore throat, inflammation of the lips, swelling in ankles, nausea, burping, and being stressed. Pt has been taking propranolol 360 mg, but was brought down from that in September. Since then, the pts migraines have been worse but her BP isnt as low. Pt had an endoscopy yesterday which caused her sore throat. - History of Current Complaint Chief Complaint: EDThroatPain Stated Complaint: HIGH BP/SORE THROAT Time Seen by Provider: 12/05/16 16:09 Hx Obtained From: Patient Hx Last Menstrual Period: tubal ligation in past Onset/Duration: Started Hours Ago, Resolved Aggravating Factor(s): Nothing Alleviating Factor(s): Other - spontaneous resolution Associated Signs & Symptoms: Other: - Patient reports sore throat, inflammation of the lips, swelling in ankles, nausea, burping, and being stressed. - Allergies/Home Medications Allergies/Adverse Reactions: Allergies Allergy/AdvReac Type Severity Reaction Status Date / Time Naloxone [From Talwin Nx] Allergy Unknown Unknown Verified 12/05/16 14:42 Reaction Details Oxycodone [From Oxycontin] Allergy Unknown Unknown Verified 12/05/16 14:42 Reaction Details Pentazocine [From Talwin Nx] Allergy Unknown Unknown Verified 12/05/16 14:42 Reaction Details Procaine [From Novocain] Allergy Unknown Unknown Verified 12/05/16 14:42 Reaction Details Verapamil [From Calan SR] Allergy Unknown Unknown Verified 12/05/16 14:42 Reaction Details Adhesive Tape Allergy Rash Verified 12/05/16 14:42 Prednisone Allergy Unknown Verified 12/05/16 14:42 Reaction Details Pregabalin [From Lyrica] Allergy Hives/Diff. Verified 12/05/16 14:42 Breathing/I tching Sulfa Drugs Allergy Unknown Verified 12/05/16 14:42 Reaction Details bees Allergy Unknown Uncoded 12/05/16 14:42 Reaction Details PMH/Surg Hx/FS Hx/Imm Hx Endocrine/Hematology History: Denies: Hx Diabetes, Hx Thyroid Disease Cardiovascular History: Reports: Hx Hypercholesterolemia Denies: Hx Congestive Heart Failure, Hx Hypertension Respiratory History: Denies: Hx Asthma, Hx Chronic Obstructive Pulmonary Disease (COPD) GI History: Reports: Hx Diverticulosis, Other GI Disorders - (left & right) inguinal hernia repairs w/mesh insertion Denies: Hx Ulcer History: Denies: Hx Renal Disease Musculoskeletal History: Reports: Hx Fibromyalgia, Other Musculoskeletal History - ankylosing spondylitis, TMJ Sensory History: Denies: Hx Contacts or Glasses, Hx Hearing Aid Opthamlomology History: Denies: Hx Contacts or Glasses Neurological History: Reports: Hx Migraine - Surgical History Surgery Procedure, Year, and Place: [facility] [place]left) inguinal hernia repair w/ mesh, [facility] [place] (right) inguinal hernia repair w/mesh,. [facility] (right) wrist , [facility] (left) carpal tunnel, 07/18 [facility] [place] gastroscopy w/esophageal biopsy + colonscopy w/biopsy, 06/20 [facility] (right) carpal tunnel, 08/20 [facility] (left) carpal tunnel, 03/24 [facility]. colonscopy w/biopsy, 12/26 [facility] [place] gastroscopy w/CLOtest & biopsy, tonsilectomy, ovarian cyst removal, tubal ligation Infectious Disease History: No Infectious Disease History: Denies: Hx Clostridium Difficile, Hx Hepatitis, Hx Human Immunodeficiency Virus (HIV), Hx of Known/Suspected MRSA, Hx Shingles, Hx Tuberculosis, Hx Known/ Suspected VRE, Hx Known/Suspected VRSA, History Other Infectious Disease, Traveled Outside the [place] in Last 30 Days - Family History Known Family History: Positive: Cardiac Disease, Hypertension, Other - Blood clots. Pancreatitis. - Social History Alcohol Use: Rare Hx Substance Use: Yes Substance Use Type: Reports: Marijuana Substance Use Comment - Amount & Last Used: Occasionally for migraines Hx Tobacco Use: No Smoking Status (MU): Never Smoked Tobacco Review of Systems Positive: Sore Throat, Other - inflammation of the lips Positive: Nausea, Other - burping Positive: Other - swelling in ankles Psychological: Other - stressed All Other Systems Reviewed And Are Negative: Yes Physical Exam - Summary Physical Exam Summary: GENERAL: ~Patient is a well-developed and nourished FEMALE who is lying comfortable in the stretcher. ~Patient is not in any acute respiratory distress. HEAD AND FACE: No signs of trauma. ~No ecchymosis, hematomas or skull depressions. No sinus tenderness. EYES: PERRLA, EOMI x 2, No injected conjunctiva, no nystagmus. EARS: Hearing grossly intact. Ear canals and tympanic membranes are within normal limits. MOUTH: Dry mouth. Erythema in throat. NECK: Supple, trachea is midline, no adenopathy, no JVD, no carotid bruit, no c- spine tenderness, neck with full ROM. CHEST: Symmetric, no tenderness at palpation LUNGS: Clear to auscultation bilaterally. No wheezing or crackles. CVS: Regular rate and rhythm, S1 and S2 present, no murmurs or gallops appreciated. BP is normal. ABDOMEN: Soft, non-tender. No signs of distention. No rebound no guarding, and no masses palpated. Bowel sounds are normal. EXTREMITIES: FROM in all major joints, no edema, no cyanosis or clubbing. NEURO: Alert and oriented x 3. No acute neurological deficits. Speech is normal and follows commands. SKIN: Dry and warm Triage Information Reviewed: Yes Vital Signs On Initial Exam: Initial Vitals Temp Pulse Resp BP Pulse Ox 98.6 F 63 16 145/81 97 12/05/16 14:38 12/05/16 14:38 12/05/16 14:38 12/05/16 14:38 12/05/16 14:38 Vital Signs Reviewed: Yes Diagnostics - Vital Signs Vital Signs Temp Pulse Resp BP Pulse Ox 12/05/16 14:38 98.6 F 63 16 145/81 97 - Laboratory Lab Statement: Any lab studies that have been ordered have been reviewed, and results considered in the medical decision making process. Hypertension Course/Dx - Course Assessment/Plan: This patient is a 66 year old F presenting to ED with a chief complaint of hypertension since earlier today. The CC is described as 220/110 earlier today. The patient rates the pain 3/10 in severity. Symptoms aggravated by nothing. Symptoms alleviated by spontaneous resolution. Patient reports sore throat, inflammation of the lips, swelling in ankles, nausea, burping, and being stressed. Pt has been taking propranolol 360 mg, but was brought down from that in September. Since then, the pts migraines have been worse but her BP isnt as low. Pt had an endoscopy yesterday which caused her sore throat. BP is within normal limits; 141/80. The throat is irritated probably secondary to manipulation from multiple procedures done yesterday. The pt was given viscous lidocaine. Pt will be discharged home with follow up with PCP. The pt is hemodynamically stable, alert and oriented x3. - Diagnoses Provider Diagnoses: Hypertension, Throat irritation Discharge - Discharge Plan Condition: Stable Disposition: HOME Patient Education Materials: Pharyngitis (ED), Hypertension (ED) Referrals: Ghulam Castellon MD [Primary Care Provider] - 3 Days The documentation as recorded by the Reynaldo chirinos Nikita accurately reflects the service I personally performed and the decisions made by , Kem Young MD.
== END 2016-12-05 17:07 | disposition home or self-care (01) ==
LOC: ED 14:36
DX: I10 Essential (primary) hypertension (principal); J02.9 Acute pharyngitis, unspecified; R60.0 Localized edema; R11.0 Nausea; R14.2 Eructation; F43.9 Reaction to severe stress, unspecified; E78.00 Pure hypercholesterolemia, unspecified; M79.7 Fibromyalgia; M45.9 Ankylosing spondylitis of unspecified sites in spine; G43.909 Migraine, unspecified, not intractable, without status migrainosus; Z88.4 Allergy status to anesthetic agent; Z91.030 Bee allergy status; Z88.5 Allergy status to narcotic agent; Z88.2 Allergy status to sulfonamides; Z88.8 Allergy status to other drugs, medicaments and biological substances; Z91.048 Other nonmedicinal substance allergy status
CPT/HCPCS: 99281

== ENCOUNTER 2017-06-29 16:34 | Emergency (ER) | payer MEDICARE ==
[2017-06-29] MEDS ORDERED: Ondansetron ODT TAB* 4 MG PO ONE (17:02)
--- NOTE | 2017-06-29 17:11 | ED ---
Adult Trauma - HPI Summary HPI Summary: 66-year-old female presents with fall today. She she slipped in the [employer] parking lot. She states she had a migraine prior to the fall. She denies any chest pain or shortness of breath with the fall. fall was a mechanical fall. She states that she landed on her wrist, left leg, and her face. She has abrasion noted to to right side of face. No loose teeth. Her nose did not bleed. She denies any loss consciousness. No vomiting but admits to nausea but may be due to the migraine. Denies any change in vision. Admits to right- sided neck pain. Full range of motion neck. Has full range of motion of the wrist. Has abrasions and to bilateral wrist. States is not able to place weight on her left leg. He has pain from her left hunter to her left knee. No hip pain. No back pain. No other injury. - History of Current Complaint Chief Complaint: EDTraumaMultiple Stated Complaint: FALL Time Seen by Provider: 06/29/17 16:41 Hx Last Menstrual Period: tubal ligation in past Pain Intensity: 8 - Allergy/Home Medications Allergies/Adverse Reactions: Allergies Allergy/AdvReac Type Severity Reaction Status Date / Time MS Naloxone [From Talwin Nx] Allergy Unknown Unknown Verified 12/05/16 14:42 Reaction Details MS Oxycodone [From Oxycontin] Allergy Unknown Unknown Verified 12/05/16 14:42 Reaction Details MS Pentazocine Allergy Unknown Unknown Verified 12/05/16 14:42 [From Talwin Nx] Reaction Details MS Procaine [From Novocain] Allergy Unknown Unknown Verified 12/05/16 14:42 Reaction Details MS Verapamil [From Calan SR] Allergy Unknown Unknown Verified 12/05/16 14:42 Reaction Details Adhesive Tape Allergy Rash Verified 12/05/16 14:42 MS Prednisone [Prednisone] Allergy Unknown Verified 12/05/16 14:42 Reaction Details MS Pregabalin [From Lyrica] Allergy Hives/Diff. Verified 12/05/16 14:42 Breathing/I tching MS Sulfa Drugs [Sulfa Drugs] Allergy Unknown Verified 12/05/16 14:42 Reaction Details bees Allergy Unknown Uncoded 12/05/16 14:42 Reaction Details PMH/Surg Hx/FS Hx/Imm Hx Endocrine/Hematology History: Denies: Hx Diabetes, Hx Thyroid Disease Cardiovascular History: Reports: Hx Hypercholesterolemia Denies: Hx Congestive Heart Failure, Hx Hypertension Respiratory History: Denies: Hx Asthma, Hx Chronic Obstructive Pulmonary Disease (COPD) GI History: Reports: Hx Diverticulosis, Other GI Disorders - (left & right) inguinal hernia repairs w/mesh insertion Denies: Hx Ulcer History: Denies: Hx Renal Disease Musculoskeletal History: Reports: Hx Fibromyalgia, Other Musculoskeletal History - ankylosing spondylitis, TMJ Sensory History: Denies: Hx Contacts or Glasses, Hx Hearing Aid Opthamlomology History: Denies: Hx Contacts or Glasses Neurological History: Reports: Hx Migraine - Surgical History Surgery Procedure, Year, and [place] [facility], [facility] [place] ingu[place] her[place] repair w/mesh,. [facility]right) wrist , [facility] [place] car[place], 07[place]18 [facility] [place] w/esophageal biopsy + colonscopy w/biopsy, 06/20 [facility] (right) carpal tunnel, 08/20 [facility] (left) carpal tunnel, 03/24 [facility]. colonscopy w/biopsy, 12/26 [facility] [place] w/CLOtest & biopsy, tonsilectomy, ovarian cyst removal, tubal ligation Infectious Disease History: No Infectious Disease History: Denies: Hx Clostridium Difficile, Hx Hepatitis, Hx Human Immunodeficiency Virus (HIV), Hx of Known/Suspected MRSA, Hx Shingles, Hx Tuberculosis, Hx Known/ Suspected VRE, Hx Known/Suspected VRSA, History Other Infectious Disease, Traveled Outside the [place] in Last 30 Days - Family History Known Family History: Positive: Cardiac Disease, Hypertension, Other - Blood clots. Pancreatitis. - Social History Alcohol Use: Rare Hx Substance Use: Yes Substance Use Type: Reports: Marijuana Substance Use Comment - Amount & Last Used: Occasionally for migraines Hx Tobacco Use: No Smoking Status (MU): Never Smoked Tobacco Review of Systems Negative: Fever Negative: Chest Pain Negative: Shortness Of Breath Positive: Nausea. Negative: Vomiting Positive: Myalgia - right sided neck, left lower leg, bilateral wrists Positive: Bruising Positive: Headache All Other Systems Reviewed And Are Negative: Yes Physical Exam Triage Information Reviewed: Yes Vital Signs On Initial Exam: Initial Vitals Temp Pulse Resp BP Pulse Ox 97.8 F 57 18 169/80 97 06/29/17 16:35 06/29/17 16:35 06/29/17 16:35 06/29/17 16:35 06/29/17 16:35 Vital Signs Reviewed: Yes Appearance: Positive: Well-Appearing Skin: Positive: Warm, Dry, Other - abrasion to right cheek Head/Face: Positive: Normal Head/Face Inspection, Other - no step off, racoon eyes, cooney sign Eyes: Positive: Normal, EOMI, ROXANN, Conjunctiva Clear ENT: Positive: Normal ENT inspection, Pharynx normal, TMs normal, Other - minimial tendereness over abrasions Neck: Positive: Other: - no midline tenderness neck, tenderness right sided of neck, nontender shoulder Respiratory/Lung Sounds: Positive: Clear to Auscultation, Breath Sounds Present Cardiovascular: Positive: Normal, RRR Abdomen Description: Positive: Nontender, Soft Bowel Sounds: Positive: Present Musculoskeletal: Positive: Strength/ROM Intact - wrist, Limited @ - left knee, Other - abrasion to wrist, good pulses, capillary refill<2 secs, tenderness left hunter and knee, neg ballotment. Negative: Edema Left - leg Neurological: Positive: Normal Psychiatric: Positive: Normal Diagnostics - Vital Signs Vital Signs Temp Pulse Resp BP Pulse Ox 06/29/17 16:35 97.8 F 57 18 169/80 97 - Laboratory Lab Statement: Any lab studies that have been ordered have been reviewed, and results considered in the medical decision making process. - Radiology leg Xray Interpretation: No Acute Changes Radiology Interpretation Completed By: Radiologist wrist Xray Interpretation: No Acute Changes Radiology Interpretation Completed By: Radiologist Adult Trauma Course/Dx - Course Course Of Treatment: 66-year-old female presents with fall today. She she slipped in the [employer] parking lot. She states she had a migraine prior to the fall. She denies any chest pain or shortness of breath with the fall. fall was a mechanical fall. She states that she landed on her wrist, left leg, and her face. She has abrasion noted to to right side of face. No loose teeth. Her nose did not bleed. She denies any loss consciousness. No vomiting but admits to nausea but may be due to the migraine. Denies any change in vision. Admits to right-sided neck pain. Full range of motion neck. Has full range of motion of the wrist. Has abrasions and to bilateral wrist. States is not able to place weight on her left leg. He has pain from her left hunter to her left knee. No hip pain. No back pain. No other injury. On exam normal neuro exam. Has full range extraocular movements intact. Nontender over abrasion on the face. No midline tenderness. Tenderness in right neck. Full range of motion of wrist. Tenderness over her wrist. Tenderness over left lower leg. Neurovascularly intact. Will not get CT head due to [place] [facility] rules does not need head imaging. X-ray of knee normal. wrist post traumatic deformity. patient states has broke wrist twice and took a part of ulna out which is consistent with xray. patient understand and agrees with plan. - Diagnoses Differential Diagnosis/HQI/PQRI: Positive: Abrasion(s), Contusion(s), Fracture Provider Diagnoses: Fall, Head injury, Facial contusion, Neck pain, Bilateral wrist pain, Left leg pain Discharge - Sign-Out/Discharge Documenting (check all that apply): Discharge/Admit/Transfer - Discharge Plan Condition: Good Disposition: HOME Patient Education Materials: Head Injury (ED), R.I.C.E. Treatment (ED) Referrals: Ghulam Castellon MD [Primary Care Provider] - Additional Instructions: Take Tylenol or ibuprofen for headache every 6 hours Modify activities as tolerated ice, elevate Follow up with primary within 5 days Return to ED if develop vomiting, severe headache, or any new or worsening symptoms - Billing Disposition and Condition Condition: GOOD Disposition: HOME
--- NOTE | 2017-06-29 17:25 | RAD ---
INDICATION: Left knee pain COMPARISON: None TECHNIQUE: AP, lateral, tunnel, and sunrise views were obtained. FINDINGS: There is no acute bony change. There is moderate condylar spurring about the medial joint space compartment and there is mild medial joint space narrowing. There is minor patellofemoral spurring. There is no significant joint effusion. IMPRESSION: MILD TO MODERATE OSTEOARTHRITIC CHANGE. NO ACUTE FINDINGS.
--- NOTE | 2017-06-29 17:26 | RAD ---
INDICATION: Left lower extremity pain COMPARISON: None TECHNIQUE: AP and lateral views were obtained. FINDINGS: There is no acute bony change. Soft tissues are intact. IMPRESSION: NO ACUTE BONY FINDINGS.
--- NOTE | 2017-06-29 17:28 | RAD ---
INDICATION: Bilateral wrist pain COMPARISON: Left wrist May 09, 2016 TECHNIQUE: AP, lateral, and oblique views of each wrist were obtained. FINDINGS: Left wrist: There is moderate osteophytes about the first CMC articulation. There is minor radiocarpal osteoarthritis. There are no additional significant arthritic changes. The soft tissues are intact. Right wrist: There is deformity about the distal radius and ulna consistent with remote injury and posttraumatic deformity. There is moderate first carpal metacarpal articulation osteoarthritis. There is no acute bony change. The soft tissues are intact IMPRESSION: OSTEOARTHRITIS ABOUT EACH WRIST WITH POSTTRAUMATIC DEFORMITY ABOUT THE RIGHT DISTAL RADIUS AND ULNA
[2017-06-29 17:55] VITALS: BP 129/75
== END 2017-06-29 17:42 | disposition home or self-care (01) ==
LOC: ED 16:34
DX: S09.90XA Unspecified injury of head, initial encounter (principal); R11.0 Nausea; M25.532 Pain in left wrist; M25.531 Pain in right wrist; R51 Headache; W01.0XXA Fall on same level from slipping, tripping and stumbling without subsequent striking against object, initial encounter; Y92.9 Unspecified place or not applicable
CPT/HCPCS: 99281; A9270-GY

== ENCOUNTER 2017-09-09 16:15 | Emergency (ER) | payer MEDICARE ==
[2017-09-09] MEDS ORDERED: Ketorolac TAB * 10 MG TAB PO PRN (19:50)
[2017-09-09] MEDS ORDERED: diPHENhydraMINE PO* 25 MG PO ONE (19:50)
[2017-09-09] MEDS ORDERED: Metoclopramide TAB* 10 MG PO ONE (19:50)
[2017-09-09 20:15] LABS: ABS Basophils 0 10^3/ul (0-0.2); ABS Eosinophils 0.1 10^3/ul (0-0.6); ABS Lymphocytes 1.5 10^3/ul (1.0-4.8); ABS Monocytes 0.4 10^3/ul (0-0.8); ABS Neutrophils 3.6 10^3/ul (1.5-7.7); ABS Nucleated RBC 0 10^3/ul; Eosinophil % 2.5 % (0-6); Hematocrit 41 % (35-47); Hemoglobin 14.2 g/dl (12.0-16.0); Lymphocyte % 25.9 % (25-47); Mean Corpuscular HGB Conc 34 g/dl (31-36); Mean Corpuscular Hemoglobin 31 pg (27-31); Mean Corpuscular Volume 91 fL (80-97); Mean Platelet Volume 9.3 um3 (7.4-10.4); Nucleated Red Blood Cells % 0; Platelet Count 192 10^3/ul (150-450); Red Blood Count 4.55 10^6/ul (4.00-5.40); Red Cell Distribution Width 14 % (10.5-15); White Blood Count 5.7 10^3/ul (3.5-10.8)
[2017-09-09 21:04] LABS: EGFR Non-African American 64.9 (>60)
--- NOTE | 2017-09-09 22:10 | ED ---
Headache - HPI Summary HPI Summary: Patient with history of migraines complains of migraine. Patient states migraines of been more frequent over past week, managed with Fioricet. Patient states usual migraine on the left side, states this migraine is bilateral. Pain described as throbbing, 8/10. Does admit to increased stress levels. Denies vision change, neck stiffness, fever, N/V, ear pain, cough, sore throat, chest pain, SOB, abdominal pain, change in urine. Medical history is fibromyalgia, ankylosing spondylitis, migraines, chronic back pain, TMJ. Positive smoker, denies regular EtOH. - History Of Current Complaint Chief Complaint: EDHeadache Stated Complaint: HEADACHE Time Seen by Provider: 09/09/17 18:51 Hx Obtained From: Patient Hx Last Menstrual Period: tubal ligation in past Onset/Duration: Gradual Onset Timing: Constant Character: Throbbing Location of Headache: Diffuse, Frontal Aggravating Factor: Nothing Allevating Factors: Nothing - Risk Factors SAH Risk Factors: Smoking - Allergies/Home Medications Allergies/Adverse Reactions: Allergies Allergy/AdvReac Type Severity Reaction Status Date / Time Adhesive Tape Allergy Rash Verified 09/09/17 16:24 naloxone Allergy Unknown Verified 09/09/17 19:56 Reaction Details oxycodone [From OxyContin] Allergy Unknown Verified 09/09/17 19:56 Reaction Details pentazocine Allergy Unknown Verified 09/09/17 19:56 Reaction Details prednisone Allergy Unknown Verified 09/09/17 19:56 Reaction Details pregabalin [From Lyrica] Allergy Hives/Diff. Verified 09/09/17 19:56 Breathing/I tching procaine [From Novocain] Allergy Unknown Verified 09/09/17 19:56 Reaction Details verapamil [From Calan] Allergy Unknown Verified 09/09/17 19:56 Reaction Details bees Allergy Unknown Uncoded 09/09/17 16:24 Reaction Details Home Medications: Home Medications Gluc Tian/MSM/Magnesium/Vit C [Glucosamine Complex-MSM Cap] 1 each PO BID [History Confirmed 09/09/17] Meclizine TAB* [Antivert 12.5 TAB*] 25 mg PO TID PRN 09/09/17 [History Confirmed 09/09/17] Prasterone (Dhea) [Dhea] 50 mg PO BID 09/09/17 [History Confirmed 09/09/17] PMH/Surg Hx/FS Hx/Imm Hx Endocrine/Hematology History: Denies: Hx Anticoagulant Therapy, Hx Diabetes, Hx Thyroid Disease Cardiovascular History: Reports: Hx Hypercholesterolemia Denies: Hx Congestive Heart Failure, Hx Hypertension Respiratory History: Denies: Hx Asthma, Hx Chronic Obstructive Pulmonary Disease (COPD) GI History: Reports: Hx Diverticulosis, Other GI Disorders - (left & right) inguinal hernia repairs w/mesh insertion Denies: Hx Ulcer History: Denies: Hx Renal Disease Musculoskeletal History: Reports: Hx Fibromyalgia, Other Musculoskeletal History - ankylosing spondylitis, TMJ Sensory History: Denies: Hx Contacts or Glasses, Hx Hearing Aid Opthamlomology History: Denies: Hx Contacts or Glasses Neurological History: Reports: Hx Migraine - Surgical History Surgery Procedure, Year, and Place: [facility]left) inguinal hernia repair w/ mesh, [facility] (right) inguinal hernia repair w/mesh,. [facility] (right) wrist , [facility] (left) carpal tunnel, 07/18 [facility] gastroscopy w/esophageal biopsy + colonscopy w/biopsy, 06/20 [facility] (right) carpal tunnel, 08/20 [facility] (left) carpal tunnel, 03/24 [facility]. colonscopy w/biopsy, 12/26 [facility] gastroscopy w/CLOtest & biopsy, tonsilectomy, ovarian cyst removal, tubal ligation Infectious Disease History: No Infectious Disease History: Denies: Hx Clostridium Difficile, Hx Hepatitis, Hx Human Immunodeficiency Virus (HIV), Hx of Known/Suspected MRSA, Hx Shingles, Hx Tuberculosis, Hx Known/ Suspected VRE, Hx Known/Suspected VRSA, History Other Infectious Disease, Traveled Outside the [place] in Last 30 Days - Family History Known Family History: Positive: Cardiac Disease, Hypertension, Other - Blood clots. Pancreatitis. - Social History Alcohol Use: Rare Hx Substance Use: Yes Substance Use Type: Reports: Marijuana Substance Use Comment - Amount & Last Used: Occasionally for migraines Hx Tobacco Use: No Smoking Status (MU): Never Smoked Tobacco Review of Systems Constitutional: Negative Eyes: Negative ENT: Negative Cardiovascular: Negative Respiratory: Negative Gastrointestinal: Negative Genitourinary: Negative Musculoskeletal: Negative Skin: Negative Positive: Headache Psychological: Normal All Other Systems Reviewed And Are Negative: Yes Physical Exam Triage Information Reviewed: Yes Vital Signs On Initial Exam: Initial Vitals Temp Pulse Resp BP Pulse Ox 98.8 F 61 18 146/94 96 09/09/17 16:17 09/09/17 16:17 09/09/17 16:17 09/09/17 16:17 09/09/17 16:17 Vital Signs Reviewed: Yes Appearance: Positive: Well-Appearing Skin: Positive: Warm Head/Face: Positive: Normal Head/Face Inspection Eyes: Positive: Normal Neck: Positive: Supple Respiratory/Lung Sounds: Positive: Clear to Auscultation Cardiovascular: Positive: Normal Abdomen Description: Positive: Nontender Musculoskeletal: Positive: Normal Neurological: Positive: Normal Psychiatric: Positive: Normal AVPU Assessment: Alert - [place] Coma Scale Best Eye Response: 4 - Spontaneous Best Motor Response: 6 - Obeys Commands Best Verbal Response: 5 - Oriented Coma Scale Total: 15 Diagnostics - Vital Signs Vital Signs Temp Pulse Resp BP Pulse Ox 09/09/17 18:25 97.3 F 57 18 143/85 97 09/09/17 16:17 98.8 F 61 18 146/94 96 - Laboratory Lab Results: Lab Results 09/09/17 09/09/17 Range/Units 20:01 20:01 WBC 5.7 (3.5-10.8) 10^3/ul RBC 4.55 (4.00-5.40) 10^6/ul Hgb 14.2 (12.0-16.0) g/dl Hct 41 (35-47) % MCV 91 (80-97) fL MCH 31 (27-31) pg MCHC 34 (31-36) g/dl RDW 14 (10.5-15) % Plt Count 192 (150-450) 10^3/ul MPV 9.3 (7.4-10.4) um3 Neut % (Auto) 64.2 (38-83) % Lymph % (Auto) 25.9 (25-47) % Charlton % (Auto) 7.1 H (0-7) % Eos % (Auto) 2.5 (0-6) % Baso % (Auto) 0.3 (0-2) % Absolute Neuts (auto) 3.6 (1.5-7.7) 10^3/ul Absolute Lymphs (auto) 1.5 (1.0-4.8) 10^3/ul Absolute Monos (auto) 0.4 (0-0.8) 10^3/ul Absolute Eos (auto) 0.1 (0-0.6) 10^3/ul Absolute Basos (auto) 0 (0-0.2) 10^3/ul Absolute Nucleated RBC 0 10^3/ul Nucleated RBC % 0 Sodium 139 (135-145) mmol/L Potassium 3.8 (3.5-5.0) mmol/L Chloride 104 (101-111) mmol/L Carbon Dioxide 29 (22-32) mmol/L Anion Gap 6 (2-11) mmol/L BUN 21 (6-24) mg/dL Creatinine 0.87 (0.51-0.95) mg/dL Est GFR ( Amer) 78.6 (>60) Est GFR (Non-Af Amer) 64.9 (>60) BUN/Creatinine Ratio 24.1 H (8-20) Glucose 93 (70-100) mg/dL Calcium 9.3 (8.6-10.3) mg/dL Total Bilirubin 0.30 (0.2-1.0) mg/dL AST 16 (13-39) U/L ALT 11 (7-52) U/L Alkaline Phosphatase 66 (34-104) U/L C-Reactive Protein 1.63 (<8.01) mg/L Total Protein 6.6 (6.4-8.9) g/dL Albumin 4.0 (3.2-5.2) g/dL Globulin 2.6 (2-4) g/dL Albumin/Globulin Ratio 1.5 (1-3) Result Diagrams: 09/09/17 20:01 09/09/17 20:01 Lab Statement: Any lab studies that have been ordered have been reviewed, and results considered in the medical decision making process. Headache Course/Dx - Course Course Of Treatment: Patient with history of migraines complains of migraine. Patient states migraines of been more frequent over past week, managed with Fioricet. Patient states usual migraine on the left side, states this migraine is bilateral. Pain described as throbbing, /10. Does admit to increased stress levels. Denies vision change, neck stiffness, fever, N/V, ear pain, cough, sore throat, chest pain, SOB, abdominal pain, change in urine. Medical history is fibromyalgia, ankylosing spondylitis, migraines, chronic back pain, TMJ. Positive smoker, denies regular EtOH. Vital signs within normal limits. Labs unremarkable. Headache resolved with migraine cocktail. Follow-up with primary care - Diagnoses Provider Diagnoses: Migraine Discharge - Sign-Out/Discharge Documenting (check all that apply): Patient Departure - Discharge Plan Condition: Stable Disposition: HOME Patient Education Materials: Migraine Headache (ED), Allergies (ED) Referrals: Ghulam Castellon MD [Primary Care Provider] - Additional Instructions: Try [id number] Claritin or Zyrtec for allergies. Follow-up with primary care. Return to the ED for any new or worsening symptoms - Billing Disposition and Condition Condition: STABLE Disposition: Home
[2017-09-09 22:18] VITALS: BP 154/94
== END 2017-09-09 22:18 | disposition home or self-care (01) ==
LOC: ED 16:15
DX: G43.909 Migraine, unspecified, not intractable, without status migrainosus (principal); M79.7 Fibromyalgia; M45.9 Ankylosing spondylitis of unspecified sites in spine
CPT/HCPCS: 36415; 80053; 85025; 86140; 99283; A9270-GY

== ENCOUNTER → 2017-12-22 16:05 | Emergency (ER) | payer MEDICARE ==
--- NOTE | 2017-12-22 20:53 | ED ---
GI/ HPI - HPI Summary HPI Summary: 67-year-old female presents with vaginal bleeding for the past couple weeks. She states that she has history of vaginal spotting but normally the blood is a brown type color. States that over the past week she's been having bright red blood that has been present with clots. She states she is bleeding amount if more. She denies any urinary symptoms. No urgency. She states that when she urinates she sees blood in the toilet but is not sure if it vaginal or urinary. No diarrhea or constipation. She denies any nausea vomiting. She states occasional right-sided pelvic pain. She states she had endometrial biopsy that was normal 2 months ago. She also had a normal ultrasound 2 months ago. She is currently on estrogen transvaginally every other day. She states she is only had 2 doses left. - History of Current Complaint Chief Complaint: EDOBProblems Time Seen by Provider: 12/22/17 20:01 Stated Complaint: BLEEDING Hx Last Menstrual Period: tubal ligation in past Pain Intensity: 0 - Allergy/Home Medications Allergies/Adverse Reactions: Allergies Allergy/AdvReac Type Severity Reaction Status Date / Time Adhesive Tape Allergy Rash Verified 12/22/17 16:08 naloxone Allergy Unknown Verified 12/22/17 16:08 Reaction Details oxycodone [From OxyContin] Allergy Unknown Verified 12/22/17 16:08 Reaction Details pentazocine Allergy Unknown Verified 12/22/17 16:08 Reaction Details prednisone Allergy Unknown Verified 12/22/17 16:08 Reaction Details pregabalin [From Lyrica] Allergy Hives/Diff. Verified 12/22/17 16:08 Breathing/I tching procaine [From Novocain] Allergy Unknown Verified 12/22/17 16:08 Reaction Details verapamil [From Calan] Allergy Unknown Verified 12/22/17 16:08 Reaction Details bees Allergy Unknown Uncoded 12/22/17 16:08 Reaction Details PMH/Surg Hx/FS Hx/Imm Hx Endocrine/Hematology History: Denies: Hx Anticoagulant Therapy, Hx Diabetes, Hx Thyroid Disease Cardiovascular History: Reports: Hx Hypercholesterolemia Denies: Hx Congestive Heart Failure, Hx Hypertension Respiratory History: Denies: Hx Asthma, Hx Chronic Obstructive Pulmonary Disease (COPD) GI History: Reports: Hx Diverticulosis, Other GI Disorders - (left & right) inguinal hernia repairs w/mesh insertion Denies: Hx Ulcer History: Denies: Hx Renal Disease Musculoskeletal History: Reports: Hx Fibromyalgia, Other Musculoskeletal History - ankylosing spondylitis, TMJ Sensory History: Denies: Hx Contacts or Glasses, Hx Hearing Aid Opthamlomology History: Denies: Hx Contacts or Glasses Neurological History: Reports: Hx Migraine - Surgical History Surgery [place], [place], [place] [facility] [place] [facility] [place] w/mesh,. [facility] wrist , [facility] carpal tunnel, [place] [facility] [place] biopsy + colonscopy w/biopsy, 06/20 [facility] (right) carpal tunnel, 08/20 [facility] (left) carpal tunnel, 03[place] [facility] [place], [place] [facility] [place]CL[place]test & biopsy, tonsilectomy, ovarian cyst removal, tubal ligation Infectious Disease History: No Infectious Disease History: Denies: Hx Clostridium Difficile, Hx Hepatitis, Hx Human Immunodeficiency Virus (HIV), Hx of Known/Suspected MRSA, Hx Shingles, Hx Tuberculosis, Hx Known/ Suspected VRE, Hx Known/Suspected VRSA, History Other Infectious Disease, Traveled Outside the [place] in Last 30 Days - Family History Known Family History: Positive: Cardiac Disease, Hypertension, Other - Blood clots. Pancreatitis. - Social History Alcohol Use: Rare Hx Substance Use: Yes Substance Use Type: Reports: Marijuana Substance Use Comment - Amount & Last Used: Occasionally for migraines Hx Tobacco Use: No Smoking Status (MU): Never Smoked Tobacco Review of Systems Negative: Fever Negative: Chest Pain Negative: Shortness Of Breath Positive: Abdominal Pain, Other - vaginal bleeding. Negative: Vomiting, Diarrhea, Nausea Negative: dysuria All Other Systems Reviewed And Are Negative: Yes Physical Exam Triage Information Reviewed: Yes Vital Signs On Initial Exam: Initial Vitals Temp Pulse Resp BP Pulse Ox 99 F 61 16 124/72 98 12/22/17 16:07 12/22/17 16:07 12/22/17 16:07 12/22/17 16:07 12/22/17 16:07 Vital Signs Reviewed: Yes Appearance: Positive: Well-Appearing Skin: Positive: Warm, Dry Head/Face: Positive: Normal Head/Face Inspection Eyes: Positive: Normal, Conjunctiva Clear ENT: Positive: Pharynx normal Respiratory/Lung Sounds: Positive: Clear to Auscultation, Breath Sounds Present Cardiovascular: Positive: Normal, RRR Abdomen Description: Positive: Soft, Other: - mild tenderness suprapubic Bowel Sounds: Positive: Present Pelvic Exam: Positive: External Exam Normal, Speculum Exam Normal, Bimanual Exam Normal, No Cerv. Motion Tender, Blood - from cervix Musculoskeletal: Positive: Normal Neurological: Positive: Normal Psychiatric: Positive: Normal Diagnostics - Vital Signs Vital Signs Temp Pulse Resp BP Pulse Ox 12/22/17 17:54 98.9 F 54 16 118/73 96 12/22/17 16:07 99 F 61 16 124/72 98 - Laboratory Result Diagrams: 12/22/17 20:45 12/22/17 20:45 Lab Statement: Any lab studies that have been ordered have been reviewed, and results considered in the medical decision making process. - Ultrasound No standard instances Ultrasound Interpretation Completed By: Radiologist Summary of Ultrasound Findings: IMPRESSION: 1. Nonvisualization of the left ovary. 2. Normal uterus and right ovary. GIGU Course/Dx - Course Course Of Treatment: 67-year-old female presents with vaginal bleeding for the past couple weeks. She states that she has history of vaginal spotting but normally the blood is a brown type color. States that over the past week she's been having bright red blood that has been present with clots. She states she is bleeding amount if more. She denies any urinary symptoms. No urgency. She states that when she urinates she sees blood in the toilet but is not sure if it vaginal or urinary. No diarrhea or constipation. She denies any nausea vomiting. She states occasional right-sided pelvic pain. She states she had endometrial biopsy that was normal 2 months ago. She also had a normal ultrasound 2 months ago. She is currently on estrogen transvaginally every other day. She states she is only had 2 doses left. On exam tenderness pelvic on the right. Pelvic shows blood in the vaginal vault and present from the cervix. ultrasound is normal. h/h normal. Discussed should follow up with PROGRAM DEVELOPMENT MANAGER. Urine is likely contaminant. Patient understands agrees the plan. - Diagnoses Differential Diagnoses - Female: STD, Urinary Tract Infection, Other - endometrosis Provider Diagnoses: Vaginal bleeding Discharge - Sign-Out/Discharge Documenting (check all that apply): Patient Departure - Discharge Plan Condition: Good Disposition: HOME Patient Education Materials: Dysfunctional Uterine Bleeding (ED) Referrals: Ghulam Castellon MD [Primary Care Provider] - Additional Instructions: follow up with solar sales assessor Return to ED if develop any new or worsening symptoms - Billing Disposition and Condition Condition: GOOD Disposition: Home
[2017-12-22 21:00] LABS: ABS Basophils 0 10^3/ul (0-0.2); ABS Eosinophils 0.2 10^3/ul (0-0.6); ABS Lymphocytes 1.9 10^3/ul (1.0-4.8); ABS Monocytes 0.5 10^3/ul (0-0.8); ABS Nucleated RBC 0 10^3/ul; Eosinophil % 2.7 % (0-6); Hematocrit 42 % (35-47); Hemoglobin 14.1 g/dl (12.0-16.0); Lymphocyte % 28.7 % (25-47); Mean Corpuscular HGB Conc 34 g/dl (31-36); Mean Corpuscular Hemoglobin 31 pg (27-31); Mean Corpuscular Volume 91 fL (80-97); Mean Platelet Volume 8.6 fL (7.4-10.4); Nucleated Red Blood Cells % 0; Platelet Count 196 10^3/ul (150-450); Red Blood Count 4.59 10^6/ul (4.00-5.40); Red Cell Distribution Width 14 % (10.5-15); White Blood Count 6.6 10^3/ul (3.5-10.8)
[2017-12-22 21:12] LABS: INR 0.95 (0.77-1.02)
[2017-12-22 21:29] LABS: EGFR Non-African American 57.8 (>60)
[2017-12-22 22:05] LABS: Urine Appearance Cloudy; Urine Blood 3+ (Negative); Urine Color Yellow; Urine Ketones Negative (Negative); Urine Protein Negative (Negative); Urine Red Blood Cell 3+(>10/hpf) (Absent); Urine Specific Gravity 1.024 (1.010-1.030); Urine Urobilinogen Negative (Negative); Urine White Blood Cell 1+(6-10/hpf) (Absent)
[2017-12-22 22:20] VITALS: BP 144/96
--- NOTE | 2017-12-25 02:16 | PN ---
Progress Note - Progress Note Date of Service: 12/22/17 Note: Negative nick, positive Gardnerella Patient was not treated prior to discharge She will need to be treated and called for this It is 2 AM and too late to call patient at this time
--- NOTE | 2017-12-25 18:28 | ED ---
Progress - Progress Note Progress Note: pt aware and agrees to start medication. Aware of danger s/sx of when to return to ED as well. Course/Dx - Course Course Of Treatment: 67-year-old female presents with vaginal bleeding for the past couple weeks. She states that she has history of vaginal spotting but normally the blood is a brown type color. States that over the past week she's been having bright red blood that has been present with clots. She states she is bleeding amount if more. She denies any urinary symptoms. No urgency. She states that when she urinates she sees blood in the toilet but is not sure if it vaginal or urinary. No diarrhea or constipation. She denies any nausea vomiting. She states occasional right-sided pelvic pain. She states she had endometrial biopsy that was normal 2 months ago. She also had a normal ultrasound 2 months ago. She is currently on estrogen transvaginally every other day. She states she is only had 2 doses left. On exam tenderness pelvic on the right. Pelvic shows blood in the vaginal vault and present from the cervix. ultrasound is normal. h/h normal. Discussed should follow up with LEATHER CASE FINISHER. Urine is likely contaminant. Patient understands agrees the plan. - Diagnoses Provider Diagnoses: Vaginal bleeding Discharge - Sign-Out/Discharge Documenting (check all that apply): Post-Discharge Follow Up - Discharge Plan Condition: Good Disposition: HOME Prescriptions: metroNIDAZOLE [Flagyl 500 MG TAB] 500 mg PO BID #14 tab Patient Education Materials: Dysfunctional Uterine Bleeding (ED) Referrals: Ghulam Castellon MD [Primary Care Provider] - Additional Instructions: follow up with test architect Return to ED if develop any new or worsening symptoms - Billing Disposition and Condition Condition: GOOD Disposition: Home
== END | disposition home or self-care (01) ==
LOC: ED 16:05
DX: N93.9 Abnormal uterine and vaginal bleeding, unspecified (principal); B96.89 Other specified bacterial agents as the cause of diseases classified elsewhere; Z88.4 Allergy status to anesthetic agent; Z91.030 Bee allergy status; Z88.5 Allergy status to narcotic agent; Z88.8 Allergy status to other drugs, medicaments and biological substances; Z91.048 Other nonmedicinal substance allergy status
CPT/HCPCS: 36415; 76830; 80053; 81003; 81015; 85025; 85610; 85730; 87086; 87480; 87491; 87510; 87591; 87661; 99283

== ENCOUNTER 2018-02-13 13:21 | Emergency (ER) | payer MEDICARE ==
[2018-02-13 13:33] VITALS: BP 142/86
--- NOTE | 2018-02-13 13:48 | UC ---
Upper Extremity HPI - HPI Summary HPI Summary: fell in living room yesterday and hit right arm on coffee table-also c/o muscular pain in torso-no open area pain in right upper arm and forearm - History of Current Complaint Chief Complaint: UCUpperExtremity Stated Complaint: BACK,ARM INJURY Time Seen by Provider: 02/13/18 13:31 Hx Obtained From: Patient Hx Last Menstrual Period: tubal ligation in past ?: No Onset/Duration: Sudden Onset Pain Intensity: 8 Pain Scale Used: 0-10 Numeric Location Of Pain: Is Discrete @ - right arm Character: Aching Aggravating Factor(s): Movement Alleviating Factor(s): Nothing Associated Signs And Symptoms: Positive: Negative Related History: Dominant Hand Right - Allergies/Home Medications Allergies/Adverse Reactions: Allergies Allergy/AdvReac Type Severity Reaction Status Date / Time pentazocine Allergy Severe Swelling Verified 02/13/18 13:36 Of Face,Lips,& Throat Adhesive Tape Allergy Rash Verified 02/13/18 13:36 oxycodone [From OxyContin] Allergy Swelling Verified 02/13/18 13:36 pregabalin [From Lyrica] Allergy Hives/Diff. Verified 02/13/18 13:36 Breathing/I tching procaine [From Novocain] Allergy convulsions Verified 02/13/18 13:36 prednisone AdvReac Severe Agitation Verified 02/13/18 13:36 verapamil [From Calan] AdvReac Severe drops BP Verified 02/13/18 13:36 bees Allergy Unknown Uncoded 02/13/18 13:36 Reaction Details PMH/Surg Hx/FS Hx/Imm Hx Previously Healthy: No - chronic back pain Endocrine History: Dyslipidemia GI/ History: Gastroesophageal Reflux Neurological History: Migraine Other History Of: Negative For: Anticoagulant Therapy - Surgical History Surgical History: Yes Surgery Procedure, Year, and [place] [facility] [place] [facility] [place] [facility] [place] [facility] [place], [place] [facility] [place] + colonscopy w/biopsy[place] 06[place] [facility] [place] [facility] [place] [facility] [place] [facility] [place] biopsy, tonsilectomy, ovarian cyst removal, tubal ligation - Family History Known Family History: Positive: Cardiac Disease, Hypertension, Other - Blood clots. Pancreatitis. - Social History Occupation: Disabled Lives: With Family Alcohol Use: Rare Substance Use Type: Marijuana Substance Use Comment - Amount & Last Used: Occasionally for migraines Smoking Status (MU): Never Smoked Tobacco Review of Systems All Other Systems Reviewed And Are Negative: Yes Constitutional: Positive: Negative Skin: Positive: Negative Eyes: Positive: Negative ENT: Positive: Negative Respiratory: Positive: Negative Cardiovascular: Positive: Negative Gastrointestinal: Positive: Negative Genitourinary: Positive: Negative Motor: Positive: Negative Neurovascular: Positive: Negative Musculoskeletal: Positive: Arthralgia - right upper and fore arm, Neurological: Positive: Negative Psychological: Positive: Negative Is Patient Immunocompromised?: No Physical Exam Triage Information Reviewed: Yes Appearance: Well-Appearing, No Pain Distress, Obese Vital Signs: Initial Vital Signs Temp 97.5 F 02/13/18 13:25 Pulse 65 02/13/18 13:25 Resp 18 02/13/18 13:25 BP 142/86 02/13/18 13:25 Pulse Ox 98 02/13/18 13:25 Vital Signs Reviewed: Yes Eye Exam: Normal Eyes: Positive: Conjunctiva Clear ENT Exam: Normal ENT: Positive: Normal ENT inspection, Hearing grossly normal, Pharynx normal, TMs normal. Negative: Nasal congestion, Trismus, Muffled voice, Hoarse voice, Sinus tenderness Dental Exam: Normal Neck exam: Normal Neck: Positive: Supple, Nontender Respiratory Exam: Normal Respiratory: Positive: Chest non-tender, Lungs clear, Normal breath sounds, No respiratory distress, No accessory muscle use Cardiovascular Exam: Normal Cardiovascular: Positive: RRR, No Murmur, Pulses Normal, Brisk Capillary Refill Musculoskeletal Exam: Normal Musculoskeletal: Positive: Strength Intact, ROM Intact, No Edema Neurological Exam: Normal Neurological: Positive: Alert, Muscle Tone Normal Psychological Exam: Normal Skin Exam: Normal Diagnostics - Radiology No standard instances Radiology Interpretation Completed By: ED Physician - no acute injury- Upper Extremity Course/Dx - Course Course Of Treatment: continue medications as prescribed, sling and ice prn follow this and hypertension in next 1-[address] Castellon - Differential Dx/Diagnosis Provider Diagnosis: Contusion of right lower arm, Contusion of right upper arm, Muscle strain of chest wall, Hypertension Discharge - Sign-Out/Discharge Documenting (check all that apply): Patient Departure All imaging exams completed and their final reports reviewed: Yes - Discharge Plan Condition: Stable Disposition: HOME Patient Education Materials: Contusion in Adults (ED), Hypertension (ED), Ice Pack Application (ED) Referrals: Ghulam Castellon MD [Primary Care Provider] - 2 Weeks - Billing Disposition and Condition Condition: STABLE Disposition: Home
== END 2018-02-13 14:58 | disposition home or self-care (01) ==
LOC: UCEAST 13:21
DX: S40.021A Contusion of right upper arm, initial encounter (principal); S29.011A Strain of muscle and tendon of front wall of thorax, initial encounter; S50.11XA Contusion of right forearm, initial encounter; I10 Essential (primary) hypertension; Z88.8 Allergy status to other drugs, medicaments and biological substances; Z88.5 Allergy status to narcotic agent; Z91.048 Other nonmedicinal substance allergy status; Z91.030 Bee allergy status; W22.03XA Walked into furniture, initial encounter; Y92.9 Unspecified place or not applicable
CPT/HCPCS: 99212; G0463

== ENCOUNTER 2018-05-29 11:50 | Emergency (ER) | payer MEDICARE ==
--- NOTE | 2018-05-29 13:02 | ED ---
Respiratory - HPI Summary HPI Summary: Patient is a 67 year old woman, who presents today to the urgent care with upper respiratory symptoms for past 3-4 days. She reports that she has sinus fullness and drainage and coughing with production of greenish sputum. She even noticed a blood streak in the sputum today. Mild soreness in the throat. She feels heavy in her chest but denies any chest pain or shortness of breath. Feels febrile at home, took temperature and it was 100F. Her sister has similar symptoms. She has not tried any other medications. - History of Current Complaint Stated Complaint: CHEST CONGESTION Time Seen by Provider: 05/29/18 13:01 Hx Obtained From: Patient - Allergy/Home Medications Allergies/Adverse Reactions: Allergies Allergy/AdvReac Type Severity Reaction Status Date / Time pentazocine Allergy Severe Swelling Verified 05/29/18 13:05 Of Face,Lips,& Throat Adhesive Tape Allergy Rash Verified 05/29/18 13:05 oxycodone [From OxyContin] Allergy Swelling Verified 05/29/18 13:05 pregabalin [From Lyrica] Allergy Hives/Diff. Verified 05/29/18 13:05 Breathing/I tching procaine [From Novocain] Allergy convulsions Verified 05/29/18 13:05 prednisone AdvReac Severe Agitation Verified 05/29/18 13:05 verapamil [From Calan] AdvReac Severe drops BP Verified 05/29/18 13:05 bees Allergy Unknown Uncoded 05/29/18 13:05 Reaction Details Home Medications: Home Medications Ascorbic Acid [Vitamin C] 500 mg PO DAILY 05/29/18 [History Confirmed 05/29/18] Aspirin 81 mg PO DAILY 05/29/18 [History Confirmed 05/29/18] Dm/PE/Acetaminophen/Chlorphenr [Millie-Windom Plus Cld-Cough Cp] 1 tab PO ONCE PRN 05/29/18 [History Confirmed 05/29/18] Irbesartan 75 mg PO DAILY 05/29/18 [History Confirmed 05/29/18] Prasterone (Dhea) [Dhea] 1 tab PO BID 05/29/18 [History Confirmed 05/29/18] PMH/Surg Hx/FS Hx/Imm Hx Previously Healthy: Yes - hypertension, migraine, fibromyalgia, spondylitis and back pain Endocrine/Hematology History: Denies: Hx Anticoagulant Therapy, Hx Diabetes, Hx Thyroid Disease Cardiovascular History: Reports: Hx Hypercholesterolemia Denies: Hx Congestive Heart Failure, Hx Hypertension - possible HTN Respiratory History: Denies: Hx Asthma, Hx Chronic Obstructive Pulmonary Disease (COPD) GI History: Reports: Hx Diverticulosis, Other GI Disorders - (left & right) inguinal hernia repairs w/mesh insertion Denies: Hx Ulcer History: Denies: Hx Renal Disease Musculoskeletal History: Reports: Hx Fibromyalgia, Other Musculoskeletal History - ankylosing spondylitis, TMJ Sensory History: Denies: Hx Contacts or Glasses, Hx Hearing Aid Opthamlomology History: Denies: Hx Contacts or Glasses Neurological History: Reports: Hx Migraine - Surgical History Surgery Procedure, Year, and [place] [facility] [place], [facility] [place] her[place] w/mesh,. [facility] (right) wrist , [facility] (left) carpal tunnel, 07[place]18 [facility] [place]es[place] biopsy + colonscopy w/biopsy, 06/20 [facility] (right) carpal tunnel, 08/20 [facility] (left) carpal tunnel, 03/24 [facility]. colonscopy w/biopsy, 12[place] [facility] [place] biopsy, tonsilectomy, ovarian cyst removal, tubal ligation Infectious Disease History: Denies: Hx Clostridium Difficile, Hx Hepatitis, Hx Human Immunodeficiency Virus (HIV), Hx of Known/Suspected MRSA, Hx Shingles, Hx Tuberculosis, Hx Known/ Suspected VRE, Hx Known/Suspected VRSA, History Other Infectious Disease, Traveled Outside the [place] in Last 30 Days - Family History Known Family History: Positive: Cardiac Disease, Hypertension, Other - Blood clots. Pancreatitis. - Social History Alcohol Use: Rare Hx Substance Use: Yes Substance Use Type: Reports: Marijuana Substance Use Comment - Amount & Last Used: Occasionally for migraines Hx Tobacco Use: No Smoking Status (MU): Never Smoked Tobacco Review of Systems Positive: Fever Eyes: Negative Positive: Sore Throat - mild, Ear Ache Cardiovascular: Negative Positive: Cough - productive of greenish sputum Gastrointestinal: Negative Genitourinary: Negative Positive: other Skin: Negative Positive: Headache - sinus headache Psychological: Normal All Other Systems Reviewed And Are Negative: No Physical Exam - Summary Physical Exam Summary: Physical Exam: Const: Appears well. No signs of apparent distress present. Alert and oriented x 3. Musculo: Walks with a normal gait. Head/Face: Atraumatic, normocephalic on inspection. Eyes: EOMI and PERRLA in both eyes. Conjunctivae clear. No discharge noted ENT: Hearing normal, TM normal appearing bilaterally There is tenderness to palpation on bilateral ethmoid and frontal sinus. There is tenderness to maxillary sinuses as well bilaterally There is pharyngeal erythema or exudative postnasal drip noted. Uvula is midline. Bilateral anterior submandibular lymphadenopathy noted. Respiratory: Respirations are unlabored. Lungs clear to auscultation bilaterally, no wheezing , rhonchi or rales noted . CVS: Regular rate and Rhythm, S1S2 normal , no murmurs identified. Extremities: Peripheral circulation is grossly normal. Pulses 2+ Abdomen : Soft non tender , nondistended , Bowel sounds present . No guarding , rebound tenderness or rigidity noted. Skin: No lesions or rash located on the upper extremities or on the lower extremities. Neuro: Cranial nerves II to XII intact, motor and sensory intact. DTR Intact bilaterally. Mood is normal. Affect is normal. Triage Information Reviewed: Yes Vital Signs Reviewed: Yes Disposition - Course Course Of Treatment: During the visit today, we discussed the findings and further plan to treat it as sinusitis . I will prescribe the medication to the pharmacy . Patient expressed understanding . - Diagnoses Provider Diagnoses: Sinusitis, acute Discharge - Sign-Out/Discharge Documenting (check all that apply): Patient Departure All imaging exams completed and their final reports reviewed: No Studies - Discharge Plan Condition: Stable Disposition: HOME Prescriptions: Amoxicillin/Clavulanate TAB* [Augmentin TAB 875*] 875 mg PO BID 14 Days #28 tab Patient Education Materials: Sinusitis (ED) Referrals: Ghulam Castellon MD [Primary Care Provider] - 1 Week Additional Instructions: Please start taking the medication as prescribed to the pharmacy . Follow up with your primary care doctor in1 week Patients blood pressure slightly high in Urgent care today , plan follow up with PCP for recheck within 1 month Return to Urgent care / ER if symptoms get worse. - Billing Disposition and Condition Condition: STABLE Disposition: Home
[2018-05-29 13:04] VITALS: BP 140/88
== END 2018-05-29 13:45 | disposition home or self-care (01) ==
LOC: UCEAST 11:50
DX: J01.90 Acute sinusitis, unspecified (principal); R50.9 Fever, unspecified; I10 Essential (primary) hypertension; E78.00 Pure hypercholesterolemia, unspecified; M79.7 Fibromyalgia; Z88.4 Allergy status to anesthetic agent; Z91.030 Bee allergy status; Z88.5 Allergy status to narcotic agent; Z88.8 Allergy status to other drugs, medicaments and biological substances; Z91.048 Other nonmedicinal substance allergy status
CPT/HCPCS: 99212; G0463

== ENCOUNTER 2018-09-26 11:57 | Emergency (ER) | payer MEDICARE, OTHER ==
--- OUTSIDE RECORDS SUMMARY | 2018-09-26 12:05 | XMS REPORT | Summary of Care ---
:1950 Author Organization [facility] Address [address] [place] [address] Care Team Providers Name Role Phone Ghulam Castellon MD Primary Care Provider Reason for Visit Reason Comments Follow Up Left knee pain with no improvment. Patient was unable to do PT due to having abdomen surgery. Encounter Details Date Type Department Care Team Description 09/20/2018 Office Visit [facility] Rc Melton, Primary osteoarthritis of left knee (Primary Dx); - Key KELLER Morbid obesity due to excess calories (HCC); [facility] Ankylosing spondylitis, unspecified site of spine (HCC) [address] [address] [place] [address] [phone] Allergies Active Allergy Reactions Severity Noted Date Comments Bee Sting 05/04/2007 Calan Sr Cardiac Reaction 01/18/2009 Sumatriptan Succinate 05/04/2007 Pregabalin Swelling 12/05/2010 ankles Procaine 05/04/2007 Oxycodone Hcl Other 05/04/2007 Patient reports swelling of lower extremities after manager terminal use. Prednisone GI Reaction 09/12/2007 Sudafed Pe Maximum 05/04/2007 Sulfa Antibiotics GI Reaction 08/05/2012 Severe nausea Talwin Anaphylaxis High 01/02/2015 Tizanidine Hcl GI Reaction 08/05/2012 Severe nausea documented as of this encounter (statuses as of 09/23/2018) Medications Medication Sig Dispensed Refills Start Date End Date Status Prasterone (DHEA) (DHEA) Take 1 Tab by 0 Active 50 MG Oral Tab mouth TWICE DAILY. L-Lysine 500 MG Oral Tab Take 1 Tab by 0 Active mouth NEEDED Ugbrszk-Mfjzphioslfym-Ba Take 2 Tabs by 0 Active ffeine (EXCEDRIN mouth NEEDED. MIGRAINE) 250-250-65 MG Oral Tab morphine (ORAMORPH SR, Take 7.5 mg by 0 Active MS CONTIN) 30 MG Oral mouth EVERY Tab CR TWELVE HOURS. Flaxseed, Linseed, (FLAX Take by mouth 0 Active SEED OIL PO) DAILY AT 1400. EPINEPHrine (EPIPEN 1 Device by 1 Each 0 08/26/2017 Active 2-MELITA) 0.3 MG/0.3ML Injection route Injection Solution DIRECTED. As Auto-injectorIndications directed for bee : Bee sting allergy sting Saccharomyces boulardii Take 1 Cap by 30 Cap 3 08/26/2017 Active (PROBIOTIC) 250 MG Oral mouth DAILY. Cap propranolol (INDERAL LA) Take 2 Caps by 180 Cap 5 09/24/2017 Active 120 MG Oral CAPSULE SR mouth DAILY. 24 HR pantoprazole (PROTONIX) take 1 tablet by 90 Tab 5 12/09/2017 Active 40 MG Oral Tab mouth once daily ECIndications: Gastroesophageal reflux disease, esophagitis presence not specified butalbital-acetaminophen take 2 tablets 100 Tab 4 02/10/2018 Active -caffeine (FIORICET) by mouth every 6 50-325-40 MG Oral hours if needed TabIndications: Migraine for HEADACHE with aura and without status migrainosus, not intractable simvastatin (ZOCOR) 20 take 1 tablet by 90 Tab 3 02/18/2018 Active MG Oral Tab mouth at bedtime cyclosporin (RESTASIS) Place 1 Drop in 60 Each 5 03/30/2018 Active 0.05 % Ophthalmic both eyes TWICE Emulsion DAILY. irbesartan (AVAPRO) 150 Take 1 Tab by 90 Tab 3 04/26/2018 Active MG Oral Tab mouth DAILY. meclizine (ANTIVERT) 25 Take 1 Tab by 90 Tab 5 06/13/2018 Active MG Oral Tab mouth THREE TIMES DAILY NEEDED for dizziness/vertig o. documented as of this encounter (statuses as of 09/23/2018) Active Problems Problem Noted Date Morbid obesity due to excess calories 09/20/2018 Foot pain, left 08/09/2018 Patellar pain, left 08/09/2018 Pelvic pain 07/19/2018 Overview: Added automatically from request for surgery [id number] Gross hematuria 07/12/2018 Essential hypertension 06/03/2018 PMB (postmenopausal bleeding) 03/01/2018 Overview: Added automatically from request for surgery [id number] LASHA (stress urinary incontinence, female) 03/01/2018 Overview: Added automatically from request for surgery [id number] Family history of coronary artery disease 12/10/2017 Overview: Mom and brother had myocardial infarctions and stents Irritable bowel syndrome with both constipation and diarrhea 11/02/2017 BMI 37.0-37.9, adult 09/24/2017 Chronic abdominal pain 05/20/2017 Gallstones 09/21/2016 Gallbladder sludge 08/27/2016 Overview: Added automatically from request for surgery [id number] Acute iritis of left eye 06/17/2016 Pseudophakia 06/17/2016 Keratitis sicca, bilateral 06/17/2016 Chronic migraine 02/27/2016 Insufficiency of tear film of both eyes 01/02/2015 Mixed hyperlipidemia 01/02/2015 Benign paroxysmal vertigo of both ears 01/02/2015 Migraine headache 05/04/2007 Ankylosing spondylitis 05/04/2007 Chronic Low Back Pain 05/04/2007 Overview: Dr [facility] Work related injury Fibromyalgia 05/04/2007 GERD (gastroesophageal reflux disease) 05/04/2007 Overview: GI MD [facility] esophago-gastroduodenoscopy 2009 documented as of this encounter (statuses as of 09/23/2018) Resolved Problems Problem Noted Date Resolved Date Sleep apnea 01/27/2017 09/24/2017 Overview: Noted By Ivonne Owens NP 03/20/16 Recurrent cold sores 01/02/2015 09/24/2017 Extreme obesity 01/02/2015 09/24/2017 Wrist fracture, left 12/05/2010 01/02/2015 Other and combined forms of senile cataract 03/27/2008 03/19/2017 High cholesterol 09/24/2017 documented as of this encounter (statuses as of 09/23/2018) Immunizations Name Administration Dates Next Due Depo Medrol (80mg) 02/22/2015 Influenza (IM) Preservative Free 11/05/2016 Influenza Vaccine High Dose 01/02/2015 ZOSTER (SHINGRIX) VACCINE 03/10/2018 documented as of this encounter Social History Tobacco Use Types Packs/Day Years Used Date Never Smoker Smokeless Tobacco: Never Used Alcohol Use Drinks/Week oz/Week Comments Yes 0 Standard drinks or equivalent 0.0 Sex Assigned at Date Recorded Not on file Job Start Date Occupation Industry Not on file Not on file Not on file Travel History Travel Start Travel End No recent travel history available. documented as of this encounter Last Filed Vital Signs Vital Sign Reading Time Taken Comments Blood Pressure 134/84 09/20/2018 2:00 PM EDT Pulse 71 09/20/2018 2:00 PM EDT Temperature - - Respiratory Rate - - Oxygen Saturation - - Inhaled Oxygen Concentration - - Weight 101.2 kg (223 lb) 09/20/2018 2:00 PM EDT Height 157.5 cm (5' 2") 09/20/2018 2:00 PM EDT Body Mass Index 40.79 09/20/2018 2:00 PM EDT documented in this encounter Progress Notes Rc Melton MD - 09/20/2018 2:00 PM EDT PATIENT: Tamiko Donovan : 1950 DATE OF SERVICE: 09/20/2018 REFERRING PRACTITIONER: Silvia Saucedo PRIMARY CARE PROVIDER: Ghulam Castellon CHIEF COMPLAINT: Chief Complaint Patient presents with Follow Up Left knee pain with no improvment. Patient was unable to do PT due to having abdomen surgery. HISTORY OF PRESENT ILLNESS: Tamiko Donovan is a 68-y.o. female who is complaining of left knee pain of weeks duration. This pain is exacerbated on climbing stairs, standing and walking more than 3 blocks. Patient admits to symptoms of swelling and theater sign involving the left knee. Patient does not utilize any assistive device such as a cane or walker. Patient has not participated in a course of physical therapy(unable toattend, although it was ordered). Past surgical history is Negative for left knee surgery. Past Medical History: Diagnosis Date Esophagitis 05/04/2007 Migraines 05/04/2007 Ankylosing spondylitis (HCC) 05/04/2007 Arthritis Chronic Low Back Pain 05/04/2007 Dizziness Elbow fracture right elbow Fibromyalgia 05/04/2007 High cholesterol Hormones and synthetic substitutes causing adverse effect in therapeutic use Irritable bowel syndrome (IBS) Malignant hyperthermia due to anesthesia relative had MH, not patient herself Otitis media Personal history of contraception, presenting hazards to health Postmenopausal Sleep apnea pt had home sleep study Wrist fracture fractured bilateral wrists, right wrist twice Wrist fracture, left 12/05/2010 Past Surgical History: Procedure Laterality Date CARPAL TUNNEL RELEASE NO DATE SPECIFIED COLONOSCOPY N/A 11/13/2016 Procedure: COLONOSCOPY with biopsy; Surgeon: Ghulam Gan DO; Location : [facility] MAIN OR EGD N/A 11/13/2016 Procedure: ENDOSCOPY UPPER GI with biopsy; Surgeon: Ghulam Gan DO; Location: [facility] MAIN OR LAPAROSCOPIC CHOLECYSTECTOMY N/A 09/21/2016 Procedure: LAPAROSCOPIC CHOLECYSTECTOMY; Surgeon: Jose A Pavon MD; Location: [facility] MAIN OR OTHER HERNIA REPAIR 1995 OR EGD TRANSORAL BIOPSY SINGLE/MULTIPLE N/A 12/04/2016 Procedure: EGD WITH BIOPSY; Surgeon: Dio Shaikh Jr., MD; Location: [facility] MAIN OR OR LAP,DIAGNOSTIC ABDOMEN N/A 08/24/2018 Procedure: LAPAROSCOPY DIAGNOSTIC, lysis of adhesions; Surgeon: Lazaro Mckenzie MD; Location: [facility] MAIN OR OR LIGATION,FALLOPIAN TUBE W/ 1989 OR TYMPANOPLASTY OR UPPER ARM/ELBOW SURGERY UNLISTED Bilateral tendon release SINUSOTOMY NOS TONSILLECTOMY NO DATE SPECIFIED Family History Problem Relation Age of Onset Undiagnosed/Untreated Disorder Mother OSTEOPOROSIS Cancer Mother Heart Disease Mother Arthritis Mother RHEUMATOID ARTHRITIS /FIBROMYALGIA Stroke Mother TIA'S Blindness Mother Macular Degeneration Mother Breast Cancer Other Anesth Problems Other Diabetes Brother ADULT ONSET DIABETES Arthritis Sister RHEUMATOID ARTHRITIS - ALL THREE SIS Glaucoma Sister Undiagnosed/Untreated Disorder Sister OSTEOPOROSIS - ALL THREE SIS Undiagnosed/Untreated Disorder Sister Clotting Disorder No family history Kidney Disease No family history Thyroid Disease No family history Hypertension No family history Current Outpatient Medications Medication Sig Tytplul-Pooehuhtxzxxm-Jhzoahtn (EXCEDRIN MIGRAINE) 250-250-65 MG Oral Tab Take 2 Tabs by mouth NEEDED. ilrotuvlov-qzznfszpjbgke-ddghbaoh (FIORICET) 50-325-40 MG Oral Tab take 2 tablets by mouth every 6 hours if needed for HEADACHE cyclosporin (RESTASIS) 0.05 % Ophthalmic Emulsion Place 1 Drop in both eyes TWICE DAILY. EPINEPHrine (EPIPEN 2-MELITA) 0.3 MG/0.3ML Injection Solution Auto-injector 1 Device by Injection route DIRECTED. As directed for bee sting Flaxseed, Linseed, (FLAX SEED OIL PO) Take by mouth DAILY AT 1400. irbesartan (AVAPRO) 150 MG Oral Tab Take 1 Tab by mouth DAILY. L-Lysine 500 MG Oral Tab Take 1 Tab by mouth NEEDED meclizine (ANTIVERT) 25 MG Oral Tab Take 1 Tab by mouth THREE TIMES DAILY NEEDED for dizziness/vertigo. morphine (ORAMORPH SR, MS CONTIN) 30 MG Oral Tab CR Take 7.5 mg by mouth EVERY TWELVE HOURS. pantoprazole (PROTONIX) 40 MG Oral Tab EC take 1 tablet by mouth once daily Prasterone (DHEA) (DHEA) 50 MG Oral Tab Take 1 Tab by mouth TWICE DAILY. propranolol (INDERAL LA) 120 MG Oral CAPSULE SR 24 HR Take 2 Caps by mouth DAILY. Saccharomyces boulardii (PROBIOTIC) 250 MG Oral Cap Take 1 Cap by mouth DAILY. simvastatin (ZOCOR) 20 MG Oral Tab take 1 tablet by mouth at bedtime No current facility-administered medications for this visit. Allergies Allergen Reactions Talwin Anaphylaxis Bee Stings [Bee Sting] Calan Sr Cardiac Reaction Imitrex Statdose [Sumatriptan Succinate] Lyrica [Pregabalin] Swelling ankles Novacaine [Procaine] Oxycontin [Oxycodone Hcl] Other Patient reports swelling of lower extremities after group home use. Prednisone GI Reaction Sudafed Pe Maximum Sulfa Antibiotics GI Reaction Severe nausea Zanaflex [Tizanidine Hcl] GI Reaction Severe nausea Social History Socioeconomic History Marital status: Single Spouse name: Not on file Number of children: Not on file Years of education: Not on file Highest education level: Not on file Occupational History Not on file Social Needs Financial resource strain: Not on file Food insecurity: Worry: Not on file Inability: Not on file Transportation needs: Medical: Not on file Non-medical: Not on file Tobacco Use Smoking status: Never Smoker Smokeless tobacco: Never Used Substance and Sexual Activity Alcohol use: Yes Alcohol/week: 0.0 standard drinks Drug use: Yes Types: Marijuana Comment: Pt states she has not smoked marijuana in 3 days Sexual activity: Yes Partners: Male Lifestyle Physical activity: Days per week: Not on file Minutes per session: Not on file Stress: Not on file Relationships Social connections: Talks on phone: Not on file Gets together: Not on file Attends quaker service: Not on file Active member of club or organization: Not on file Attends meetings of clubs or organizations: Not on file Relationship status: Not on file Intimate partner violence: Fear of current or ex partner: Not on file Emotionally abused: Not on file Physically abused: Not on file Forced sexual activity: Not on file Other Topics Concern Back Care Not Asked Bike Helmet Not Asked Blood Transfusions Not Asked Caffeine Concern Not Asked Exercise No Hobby Hazards Not Asked International Travel Not Asked Service Not Asked Occupational Exposure Not Asked Seat Belt Not Asked Self-Exams Not Asked Sleep Concern Not Asked Special Diet Not Asked Stress Concern Not Asked Weight Concern Yes Social History Narrative Lives in [facility] on disability Single has a boyfriend REVIEW OF SYSTEMS: As detailed in nurse's notes PHYSICAL EXAMINATION: VITALS: BP 134/84 | Pulse 71 | Ht 5' 2" (1.575 m) | Wt 223 lb (101.2 kg) | BMI 40.79 kg/m Body mass index is 40.79 kg/m.. left knee extension is 0 degrees.left knee flexion is 120 degrees. Patient does not have evidence ofvarus instability. Patient does not have evidence of valgus instability. Negative Lachmans test of left knee at 25 -30 degrees flexion. Patient has minimalleft knee effusion. Patient is neurovascularly intact. X-ray left knee reveals severe degenerative changes of the medial compartment. minimal degenerative changes are noted to involve the lateral compartment. moderate degenerative changes are noted to involve the patella femoral compartment. Patient has not had a course of physical therapy. Patient has had a course of non-steroidal anti-inflammatory medication. Patient has not had a course of visco supplementation. IMPRESSION: ICD-9-CM ICD-10-CM 1. Morbid obesity due to excess calories ([facility]) 278.01 E66.01 2. Ankylosing spondylitis, unspecified site of spine ([facility]) 720.0 M45.9 PLAN: Will refer to physical therapy and follow up in 5 weeks with Fatoumata Saucedo. The risks and benefits of operative vs non-operative intervention have been explained to the patient at length. All of her questions have been answered to her complete satisfaction. Author: Rc Melton MD 09/20/2018 14:06 documented in this encounter Plan of Treatment Date Type Specialty Care Team Description 10/18/2018 Office Visit Orthopedics Silvia Saucedo, RPA-C [address] [place] [address] [phone] 01/24/2019 Office Visit Urology Lizzy Capellan CRNP [address] [address] [phone] 03/31/2019 IPPR Ophthalmology 03/31/2019 IPPR Ophthalmology 03/31/2019 Ocular Visit Optometry Bhavna Faith, OD [address] [address] Health Maintenance Due Date Last Done Comments PNEUMOCOCCAL 65+YRS (1 of 2 2014 - PCV13) MEDICARE ANNUAL WELLNESS 01/03/2016 01/02/2015 VISIT ZOSTER IMMUNIZATION SERIES 05/05/2018 03/10/2018 (2 of 2) INFLUENZA VACCINE (#1) 2018 11/05/2016, 01/02/2015 DEPRESSION SCREENING 12/10/2018 12/10/2017 FALL RISK ASSESSMENT 12/10/2018 12/10/2017, 12/10/2017 MAMMOGRAM (SCREENING) 12/10/2018 12/10/2017, 08/27/2016, 02/04/2015, Additional history exists LIPID DISORDER SCREENING 02/18/2019 02/18/2018, 2017, 02/03/2016, Additional history exists DIABETES SCREENING 06/15/2019 06/14/2018, 03/14/2018, 03/14/2018, Additional history exists COLONOSCOPY SCREENING 11/13/2021 11/13/2016, 11/13/2016, 12/29/2011 (Previously completed) OSTEOPOROSIS SCREENING 01/15/2025 01/15/2015, 01/19/2011 HPV IMMUNIZATION SERIES Aged Out No longer eligible based on patient's age to complete this topic MENINGOCOCCAL VACCINE IMM Aged Out No longer eligible based on patient's age to complete this topic documented as of this encounter Goals Goal Patient Goal Associated Recent Patient-Stated? Author Type Problems Progress Blood Pressure Blood Pressure 134/84 No [place], < 150/90 (09/20/2018 Ghulam Sherman, 2:00 PM EDT) Note: This is an individualized treatment (blood pressure) goal for Tamiko Donovan: Displayed above (on the left) is your goal for blood pressure control. Your most recent blood pressure is also shown above, on the right. You should try to achieve blood pressures that are lower than your goal listed above (on the left). Weight loss vs. 18 mo Lifestyle 3 (09/20/2018 2:00 PM Ghulam Doty MD max (lbs) >=10 EDT) Note: This is an individualized lifestyle goal for Tamiko Donovan: Your body mass index (BMI) is more than 30. You should lose weight. A reasonable starting goal is to lose 10 pounds. Displayed above is how many pounds you have lost thus far towards your 10 pound weight loss goal. Take all prescribed medications as Self-management Ghulam Doty MD directed Note: This is an individualized self-management goal for Tamiko Donovan: Please take all prescribed medications as directed. 1. Do not skip doses. If you cannot afford your medications, talk with your doctor. 2. Use a pill reminder system such as a pill box if needed. Your pharmacist can help you with this. 3. Contact your Pharmacy 5 days before your medication runs out. If you cannot take your medications for any reasons, talk with your doctor. 4. Please bring all of your medication bottles and inhalers (or a list of all your medications/inhalers) with you to every visit. Potential barriers to meeting all of your care plan goals will continue to be addressed on an ongoing basis. documented as of this encounter Implants Implanted Type Area Object Oriented Programmer Device Shelf Model / Identifier Expiration Serial / Lot Date Iol, [id number] 23.0 Diopter - [id number] Left: Eye STORZ [id number] / Implanted: Qty: 1 on 04/02/2008 at [facility] / [id number] Iol, [id number] 22.5 Diopter - [id number] Right: Eye STORZ [id number] / Implanted: Qty: 1 on 04/16/2008 at [facility] / [id number] Gary Kaur - [id number] N/A: [id number] 01/18/2020 [id number] / Implanted: Qty: 1 on 03/16/2018 by Lazaro Mckenzie MD at [facility] / [id number] documented as of this encounter Results Not on filedocumented in this encounter Visit Diagnoses Diagnosis Primary osteoarthritis of left knee - Primary Primary localized osteoarthrosis, lower leg Morbid obesity due to excess calories (HCC) Ankylosing spondylitis, unspecified site of spine (HCC) documented in this encounter Insurance Payer Benefit Plan / Subscriber ID Effective Dates Phone Address Type Group AETNA MEDICARE AETNA MEDICARE xxxxxxxx 2016-Present [employer] ADVANTAGE ADVANTAGE Guarantor Name Account Type Relation to Date of Phone Billing Address Patient Tamiko Donovan Personal/Famil 1950 [address] (Home) [place], [place] [phone] [id number] (Work) documented as of this encounter Advance Directives Type Date 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
--- NOTE | 2018-09-26 12:20 | UC ---
Minor Trauma HPI - HPI Summary HPI Summary: 68 [id number] presents for headache, neck pain, right hand/arm pain, and right knee pain s/p fall at approximately 21:30 last night. States she was climbing her stairs into her apartment and fell forward striking her forehead on a metal door causing a hyperextension injury to the neck. No LOC. Complains of headache. Able to recall entire incident as well as events before and after the injury. Unsure of what she hit her arm on but states fell directly onto right knee. Able to walk and bear weight immediately after the injury as well as in the clinic. Denies dizziness, lightheadedness, visual disturbances, facial droop, slurred or difficulty speaking, seizure-like activity, weakness, numbness, or tingling of extremities, chest pain, palpitations, SOB, abdominal pain, nausea, or vomiting. - History of Current Complaint Chief Complaint: UCTrauma Stated Complaint: HEAD /ARM /KNEE INJURY Time Seen by Provider: 09/26/18 12:11 Hx Obtained From: Patient Hx Last Menstrual Period: tubal ligation in past Pain Intensity: 7 - Allergies/Home Medications Allergies/Adverse Reactions: Allergies Allergy/AdvReac Type Severity Reaction Status Date / Time pentazocine Allergy Severe Swelling Verified 09/26/18 13:34 Of Face,Lips,& Throat phenylephrine Allergy Intermediate light Verified 09/26/18 13:32 [From Sudafed PE] headed Sulfa (Sulfonamide Allergy Intermediate Vomiting Verified 09/26/18 13:32 Antibiotics) tizanidine Allergy Intermediate Nausea Verified 09/26/18 13:33 Adhesive Tape Allergy Rash Verified 09/26/18 13:34 oxycodone [From OxyContin] Allergy Swelling Verified 09/26/18 13:34 pregabalin [From Lyrica] Allergy Hives/Diff. Verified 09/26/18 13:34 Breathing/I tching procaine [From Novocain] Allergy convulsions Verified 09/26/18 13:34 prednisone AdvReac Severe Agitation Verified 09/26/18 13:34 verapamil [From Calan] AdvReac Severe drops BP Verified 09/26/18 13:34 bees Allergy Unknown Uncoded 09/26/18 13:34 Reaction Details PMH/Surg Hx/FS Hx/Imm Hx Endocrine History: Dyslipidemia Cardiovascular History: Hypertension GI/ History: Gastroesophageal Reflux Neurological History: Migraine Other History Of: Negative For: Anticoagulant Therapy - Surgical History Surgical History: Yes Surgery Procedure, Year, and Place: [facility] [place] inguinal hernia repair w/ mesh, [facility] [place] (right) inguinal hernia repair w/mesh,. [facility] [place] (right) wrist , [facility] [place] (left) carpal tunnel, 07/[address] [facility] [place] gastroscopy w/esophageal biopsy + colonscopy w/biopsy, 06/[address] [facility] [place] (right) carpal tunnel, 08/[address] [facility] [place] (left) carpal tunnel, 03/[address] [facility] [place]. colonscopy w/biopsy, 12/[address] [facility] [place] gastroscopy w/CLOtest & biopsy, tonsilectomy, ovarian cyst removal, tubal ligation - Family History Known Family History: Positive: Cardiac Disease, Hypertension, Other - Blood clots. Pancreatitis. - Social History Occupation: Disabled Lives: With Family Alcohol Use: Rare Substance Use Type: Marijuana Substance Use Comment - Amount & Last Used: Occasionally for migraines Smoking Status (MU): Never Smoked Tobacco Review of Systems All Other Systems Reviewed And Are Negative: Yes Constitutional: Negative: Fever, Chills Skin: Positive: Bruising, Other - abrasion Eyes: Negative: Blurred Vision, Diplopia, Photophobia ENT: Positive: Negative Respiratory: Positive: Negative Cardiovascular: Positive: Negative Gastrointestinal: Positive: Negative Genitourinary: Positive: Negative Musculoskeletal: Positive: Other: - See HPI Neurological: Positive: Headache. Negative: Weakness, Paresthesia, Numbness Is Patient Immunocompromised?: No Physical Exam - Summary Physical Exam Summary: GENERAL APPEARANCE: Alert and cooperative older adult female who appears to be in no acute distress. HEAD: Atraumatic. Normocephalic. EYES: Conjunctiva clear. No drainage. PERRL, EOM intact. Vision is grossly intact. EARS: External auditory canals and tympanic membranes clear, hearing grossly intact. NOSE: No nasal discharge. THROAT: Pharynx normal. No tonsilar inflammation, swelling, exudate, or lesions. Uvula midline. NECK: Neck supple. Mild midline and paraspinous tenderness without deformity. Full ROM. CARDIAC: Normal S1 and S2. No S3, S4 or murmurs. Rhythm is regular. There is no peripheral edema, cyanosis or pallor. Extremities are warm and well perfused. Capillary refill is less than 2 seconds. Peripheral pulses intact. LUNGS: Clear to auscultation without rales, rhonchi, wheezing or diminished breath sounds. ABDOMEN: Positive bowel sounds. Soft, nondistended, nontender. No guarding or rebound. No masses or hepatosplenomegally. MUSKULOSKELETAL: ROM intact to all extremities. No joint erythema or tenderness. Normal muscular development. EXTREMITIES: Mild ecchymosis over the dorsolateral aspect of the right hand with mild tenderness. No gross deformity or edema. Mild tenderness to the mid ulnar aspect of the right forearm without gross deformity, eccymosis, or edema. Mild tenderness over the right petella without gross deformity, edema, or eccymosis. Full ROM. BACK: Examination of the spine reveals no spinal deformity or tenderness, decreased range of motion or muscular spasm. NEUROLOGICAL: CN II-XII intact. Strength and sensation symmetric and intact throughout. Cerebellar testing normal. SKIN: Skin normal color, texture and turgor. Superficial abrasion over to the anterior right knee. Triage Information Reviewed: Yes Vital Signs: Initial Vital Signs Temp 98 F 09/26/18 12:04 Pulse 58 09/26/18 12:04 Resp 16 09/26/18 12:04 BP 128/83 09/26/18 12:04 Pulse Ox 99 09/26/18 12:04 Vital Signs Reviewed: Yes Diagnostics - Radiology No standard instances Radiology Interpretation Completed By: Radiologist Summary of Radiographic Findings: Order Information: CT BRAIN WO. Accession Number: [id number]. CPT: 43838. HISTORY: head injury s/p fall. COMPARISONS: None relevant available at the time of dictation. TECHNIQUE: Multiple contiguous axial CT scans were obtained of the head without intravenous contrast. FINDINGS: HEMORRHAGE/INFARCT: There is no hemorrhage or acute infarct. MASSES/SHIFT: There is no mass or shift. EXTRA-AXIAL SPACES: There are no extra-axial fluid collections. SULCI AND VENTRICLES: The sulci and ventricles are normal in size and position for the patient's stated age. CEREBRUM: There are no focal parenchymal abnormalities. BRAINSTEM: There are no focal parenchymal abnormalities. CEREBELLUM: There are no focal parenchymal abnormalities. VESSELS: The vessels are grossly normal. PARANASAL SINUSES: The paranasal sinuses are clear. ORBITS: The orbits are unremarkable. BONES AND SOFT TISSUE: No bone or soft tissue abnormalities are noted. OTHER: None. IMPRESSION: NO ACUTE INTRACRANIAL PATHOLOGY. Order Information: CT SPINE CERVICAL W/O. Accession Number: [id number]. CPT: 03598. HISTORY: neck pain s /p fall. COMPARISONS: None relevant available at the time of dictation. TECHNIQUE: Multiple contiguous axial CT scans were obtained of the cervical spine without intravenous contrast, with coronal and sagittal multiplanar reformations. FINDINGS: BRAIN: The visualized brain is unremarkable. CENTRAL CANAL: Evaluation of the central canal is limited on CT technique, however there is no obvious canalicular mass or epidural hemorrhage. ALIGNMENT: There is straightening of the normal cervical lordosis. VERTEBRAL BODIES: There is anterolateral marginal osteophyte formation most pronounced at C5-C6 and C6-C7. There is no displaced fracture. There is a bone island of the left articular facet of C5. JOINTS: There is osteoarthritis of the uncovertebral, facet, and atlantoaxial. articulations. MUSCULATURE: Unremarkable. INTERVERTEBRAL DISCS : There is diffuse loss of intervertebral disc height. AXIAL IMAGES: There is multilevel degenerative disc disease and osteoarthritis, without osseous neural foraminal narrowing or central canal stenosis. SOFT TISSUES: The visualized soft tissues of the neck are unremarkable. The prevertebral fat stripe is preserved. OTHER: None. IMPRESSION: NO ACUTE OSSEOUS INJURY TO THE CERVICAL SPINE. Order Information: HAND - RIGHT MINIMUM 3 VIEWS. Accession Number: [id number]. CPT: 32078. HISTORY: pain s/p fall . COMPARISONS: June 29, 2017. VIEWS: 4, Frontal, lateral, and oblique views of the right hand. FINDINGS: BONE DENSITY: Normal. BONES: There is no acute displaced fracture. There is chronic posttraumatic deformity of the wrist. JOINTS: There is advanced osteoarthritis of the distal radial-ulnar and radiocarpal articulations. There is osteoarthritis of the first CMC, MCP, STT, and interphalangeal joints. ALIGNMENT: There is no dislocation. SOFT TISSUES: Unremarkable. OTHER FINDINGS : None. IMPRESSION: OSTEOARTHRITIS. NO ACUTE OSSEOUS INJURY. Order Information: FOREARM RIGHT 2 VWS. Accession Number: [id number]. CPT: 17713. HISTORY: pain s/p fall . COMPARISONS: February 13, 2018. VIEWS: 2, Frontal and lateral views of the right forearm. FINDINGS: BONE DENSITY: Normal. BONES : There is no displaced fracture. There is chronic posttraumatic change of the wrists. JOINTS: There is advanced osteoarthritis of the right wrist. There is osteoarthritis of the right elbow. ALIGNMENT: There is no dislocation. SOFT TISSUES: Unremarkable. OTHER FINDINGS: None. IMPRESSION: OSTEOARTHRITIS. NO ACUTE OSSEOUS INJURY. Order Information: KNEE RIGHT 4+ VWS. Accession Number: [id number]. CPT: 78208. HISTORY: pain s/p fall. COMPARISONS: None relevant available at the time of dictation. VIEWS: 4, Frontal, lateral, axial, and oblique views of the right knee. FINDINGS: BONE DENSITY: Normal. BONES: There is no displaced fracture. JOINTS: There is moderate tricompartment osteoarthritis. There is no suprapatellar joint effusion or lipohemarthrosis. ALIGNMENT: There is no dislocation. SOFT TISSUES: Unremarkable. OTHER FINDINGS : None. IMPRESSION: OSTEOARTHRITIS. NO ACUTE OSSEOUS INJURY. Minor Trauma Course/Dx - Course Course Of Treatment: 68 [id number] presents for headache, neck pain, right hand/arm pain, and right knee pain s/p fall at approximately 21:30 last night. States she was climbing her stairs into her apartment and fell forward striking her forehead on a metal door causing a hyperextension injury to the neck. No LOC. Complains of headache. Able to recall entire incident as well as events before and after the injury. Unsure of what she hit her arm on but states fell directly onto right knee. Able to walk and bear weight immediately after the injury as well as in the clinic. Denies dizziness, lightheadedness, visual disturbances, facial droop, slurred or difficulty speaking, seizure-like activity, weakness, numbness, or tingling of extremities, chest pain, palpitations, SOB, abdominal pain, nausea, or vomiting. Afebrile. VSS. Patient had mild midline and paraspinous tenderness without deformity, full ROM, mild ecchymosis over the dorsolateral aspect of the right hand with mild tenderness, no gross deformity or edema, mild tenderness to the mid ulnar aspect of the right forearm without gross deformity, eccymosis, or edema, mild tenderness over the right petella without gross deformity, edema, or eccymosis, full ROM, superficial abrasion over to the anterior right knee, and otherwise normal exam. CT head and neck were obtained and normal. X-rays of the right hand, forearm, and knee showed no acute fracture or dislocation. Reviewed findings with the patient. Recommending conservative treatment for closed head injury, cervical strain, and contusions of the right hand, forearm, and knee. She is to follow up with her PCP in 5 days if no improvement in symptoms. Anticipatory guidance and warning symptoms were reviewed with the patient. Verbalizes understanding and agrees with POC. - Differential Dx/Diagnosis Differential Diagnosis/HQI/PQRI: Contusion(s), Fracture, Dislocation, Sprain Provider Diagnosis: Closed head injury without loss of consciousness, Cervical strain, Contusion of right hand, Contusion of right forearm, Contusion of right knee, Abrasion of right knee Discharge - Sign-Out/Discharge Documenting (check all that apply): Patient Departure All imaging exams completed and their final reports reviewed: No Studies - Discharge Plan Condition: Stable Disposition: HOME Patient Education Materials: Head Injury (ED), Contusion in Adults (ED), Abrasion (ED) Referrals: Ghulam Castellon MD [Primary Care Provider] - 5 Days Additional Instructions: The CT scans performed in the clinic today were normal. The x-rays performed in the clinic today showed no evidence of a fracture. Rest the arm and knee as much as possible. Apply ice to the affected area for 15-20 minutes at least 4 times a day to help with the pain and swelling. Elevate the arm and leg to help reduce swelling. Take acetaminophen (Tylenol) according to directions as needed for pain. Follow up with your primary care provider in 5 days if symptoms do not improve. Seek immediate medical attention if you have severe pain not managed with pain medication, you are unable to walk or bear any weight, develop numbness or tingling in the arm, hand, leg, foot or toes, or have any worsening of symptoms. - Billing Disposition and Condition Condition: STABLE Disposition: Home
[2018-09-26 14:15] VITALS: BP 124/78
== END 2018-09-26 14:13 | disposition home or self-care (01) ==
LOC: UCEAST 11:57
DX: S09.90XA Unspecified injury of head, initial encounter (principal); S16.1XXA Strain of muscle, fascia and tendon at neck level, initial encounter; S60.221A Contusion of right hand, initial encounter; S50.11XA Contusion of right forearm, initial encounter; S80.01XA Contusion of right knee, initial encounter; S80.211A Abrasion, right knee, initial encounter; W10.9XXA Fall (on) (from) unspecified stairs and steps, initial encounter; Y92.038 Other place in apartment as the place of occurrence of the external cause; E78.5 Hyperlipidemia, unspecified; I10 Essential (primary) hypertension; K21.9 Gastro-esophageal reflux disease without esophagitis; Z88.2 Allergy status to sulfonamides; Z88.5 Allergy status to narcotic agent
CPT/HCPCS: 70450; 72125; 99211; G0463

== ENCOUNTER 2019-02-04 12:52 | Emergency (ER) | payer MEDICARE, OTHER ==
--- NOTE | 2019-02-04 13:10 | ED ---
Throat Pain/Nasal Congestion - HPI Summary HPI Summary: This patient is a 68 year old female presenting to [facility] with a chief complaint of frequent epistaxis. Pt stated that she started to have nose bleeds yesterday and one today at 0500 and 0800 this morning. Pt is having surgery soon and has had some migraines this week, and has a history of them. Pt does not have one right now. Longest nose bleed lasted 30 minutes. She states she has never had a nosebleed in her life. She denies fever, sore throat. - History of Current Complaint Chief Complaint: EDEpistaxis Time Seen by Provider: 02/04/19 12:57 Hx Obtained From: Patient Onset/Duration: Lasting Days - Allergies/Home Medications Allergies/Adverse Reactions: Allergies Allergy/AdvReac Type Severity Reaction Status Date / Time pentazocine Allergy Severe Swelling Verified 02/04/19 12:55 Of Face,Lips,& Throat phenylephrine Allergy Intermediate light Verified 02/04/19 12:55 [From Sudafed PE] headed Sulfa (Sulfonamide Allergy Intermediate Vomiting Verified 02/04/19 12:55 Antibiotics) tizanidine Allergy Intermediate Nausea Verified 02/04/19 12:55 Adhesive Tape Allergy Rash Verified 02/04/19 12:55 oxycodone [From OxyContin] Allergy Swelling Verified 02/04/19 12:55 pregabalin [From Lyrica] Allergy Hives/Diff. Verified 02/04/19 12:55 Breathing/I tching procaine [From Novocain] Allergy convulsions Verified 02/04/19 12:55 prednisone AdvReac Severe Agitation Verified 02/04/19 12:55 verapamil [From Calan] AdvReac Severe drops BP Verified 02/04/19 12:55 bees Allergy Unknown Uncoded 02/04/19 12:55 Reaction Details PMH/Surg Hx/FS Hx/Imm Hx Endocrine/Hematology History: Denies: Hx Anticoagulant Therapy, Hx Diabetes, Hx Thyroid Disease Cardiovascular History: Reports: Hx Hypercholesterolemia Denies: Hx Congestive Heart Failure, Hx Hypertension Respiratory History: Denies: Hx Asthma, Hx Chronic Obstructive Pulmonary Disease (COPD) GI History: Reports: Hx Diverticulosis, Other GI Disorders - (left & right) inguinal hernia repairs w/mesh insertion Denies: Hx Ulcer History: Denies: Hx Renal Disease Musculoskeletal History: Reports: Hx Fibromyalgia, Other Musculoskeletal History - ankylosing spondylitis, TMJ Sensory History: Denies: Hx Contacts or Glasses, Hx Hearing Aid Opthamlomology History: Denies: Hx Contacts or Glasses Neurological History: Reports: Hx Migraine - Surgical History Surgery Procedure, Year, and Place[place] [facility] [place]/ mesh, [facility] (right) inguinal hernia repair w/mesh,. [facility] (right) wrist , [facility] (left) carpal tunnel, 07/18 [facility] gastroscopy w/esophageal biopsy + colonscopy w/biopsy, 06/20 [facility] (right) carpal tunnel, 08/20 [facility] (left) carpal tunnel, 03/24 [facility]. colonscopy w/biopsy, 12/[place] [facility] [place]/CLOtest & biopsy, tonsilectomy, ovarian cyst removal, tubal ligation Infectious Disease History: No Infectious Disease History: Denies: Hx Clostridium Difficile, Hx Hepatitis, Hx Human Immunodeficiency Virus (HIV), Hx of Known/Suspected MRSA, Hx Shingles, Hx Tuberculosis, Hx Known/ Suspected VRE, Hx Known/Suspected VRSA, History Other Infectious Disease, Traveled Outside the [place] in Last 30 Days - Family History Known Family History: Positive: Cardiac Disease, Hypertension, Other - Blood clots. Pancreatitis. - Social History Alcohol Use: Rare Hx Substance Use: Yes Substance Use Type: Reports: Marijuana Substance Use Comment - Amount & Last Used: Occasionally for migraines Hx Tobacco Use: No Smoking Status (MU): Never Smoked Tobacco Review of Systems Negative: Fever Positive: Epistaxis. Negative: Sore Throat Positive: Headache All Other Systems Reviewed And Are Negative: Yes Physical Exam - Summary Physical Exam Summary: Constitutional: Well-developed, Well-nourished, Alert. (-) Distressed Skin: Warm, Dry HENT: Normocephalic; Atraumatic. Medial nasal mucosa, mildly erythemetous/ inflamed. No active bleeding or visible bleed source. Eyes: Conjunctiva normal Neck: Musculoskeletal ROM normal neck. (-) JVD, (-) Stridor, (-) Tracheal deviation Cardio: Rhythm regular, rate normal, Heart sounds normal; Intact distal pulses; Radial pulses are 2+ and symmetric. (-) Murmur Pulmonary/Chest wall: Effort normal. (-) Respiratory distress, (-) Wheezes, (-) Rales Abd: Soft, (-) tenderness, (-) Distension, (-) Guarding, (-) Rebound Musculoskeletal: (-) Edema Lymph: (-) Cervical adenopathy Neuro: Alert, Oriented x3 Psych: Mood and affect Normal Triage Information Reviewed: Yes Vital Signs On Initial Exam: Initial Vitals Temp Pulse Resp BP Pulse Ox 97.9 F 67 18 121/81 96 02/04/19 12:54 02/04/19 12:54 02/04/19 12:54 02/04/19 12:54 02/04/19 12:54 Vital Signs Reviewed: Yes Procedures - Sedation Patient Received Moderate/Deep Sedation with Procedure: No Diagnostics - Vital Signs Vital Signs Temp Pulse Resp BP Pulse Ox 02/04/19 12:54 97.9 F 67 18 121/81 96 - Laboratory Lab Statement: Any lab studies that have been ordered have been reviewed, and results considered in the medical decision making process. EENT Course/Dx - Course Course Of Treatment: This patient is a 68 year old female presenting to [facility] with a chief complaint of frequent epistaxis since yesterday morning. Patient was given Afrin Nasal [place]. Plan for discharge was discussed with the patient and she was agreeable with this plan. - Diagnoses Provider Diagnoses: Epistaxis Discharge ED - Sign-Out/Discharge Documenting (check all that apply): Patient Departure - Discharge - Discharge Plan Condition: Stable Disposition: HOME Patient Education Materials: Nosebleed (ED) Referrals: Ghulam Castellon MD [Primary Care Provider] - 2 Days Additional Instructions: Return to ED with new or worsening symptoms. - Attestation Statements Document Initiated by Scribe: Yes Documenting Scribe: Ruben Cristina Provider For Whom Scribe is Documenting (Include Credential): Carlos Gates DO Scribe Attestation: Ruben Cmapos, scribed for Carlos Gates DO on 02/04/19 at 1306. Status of Scribe Document: Ready
[2019-02-04] MEDS ORDERED: Oxymetazoline 0.05% NASAL SPR* 15 ML BTL BOTH NARES ONE (13:12)
--- OUTSIDE RECORDS SUMMARY | 2019-02-04 13:43 | XMS REPORT | Summary of Care ---
:1950 Author Organization [facility] Address [address] [place] [address] Care Team Providers Name Role Phone Ghulam Castellon Whit Primary Care Provider Reason for Visit Reason Comments Hematuria 6 month follow up. Encounter Details Date Type Department Care Team Description 01/26/2019 Office Visit [facility] Lizzy Capellan CRNP Gross hematuria [address] (Primary Dx) [place] [address] [place] [address] [phone] Allergies Active Allergy Reactions Severity Noted Date Comments Bee Sting 05/04/2007 Calan Sr Cardiac Reaction 01/18/2009 Sumatriptan Succinate 05/04/2007 Pregabalin Swelling 12/05/2010 ankles Procaine 05/04/2007 Oxycodone Hcl Other 05/04/2007 Patient reports swelling of lower extremities after shelter use. Prednisone GI Reaction 09/12/2007 Sudafed Pe Maximum 05/04/2007 Sulfa Antibiotics GI Reaction 08/05/2012 Severe nausea Talwin Anaphylaxis High 01/02/2015 Tizanidine Hcl GI Reaction 08/05/2012 Severe nausea documented as of this encounter (statuses as of 01/26/2019) Medications Medication Sig Dispensed Refills Start Date End Date Status Prasterone (DHEA) (DHEA) Take 1 Tab by 0 Active 50 MG Oral Tab mouth TWICE DAILY. L-Lysine 500 MG Oral Tab Take 1 Tab by 0 Active mouth NEEDED Vycnvkm-Bjlfjcyisddci-Rr Take 2 Tabs by 0 Active ffeine (EXCEDRIN mouth NEEDED. MIGRAINE) 250-250-65 MG Oral Tab Flaxseed, Linseed, (FLAX Take by mouth 0 Active SEED OIL PO) DAILY AT 1400. EPINEPHrine (EPIPEN 1 Device by 1 Each 0 08/26/2017 Active 2-MELITA) 0.3 MG/0.3ML Injection route Injection Solution DIRECTED. As Auto-injectorIndications directed for bee : Bee sting allergy sting Saccharomyces boulardii Take 1 Cap by 30 Cap 3 08/26/2017 Active (PROBIOTIC) 250 MG Oral mouth DAILY. Cap pantoprazole (PROTONIX) take 1 tablet by 90 Tab 5 12/09/2017 Active 40 MG Oral Tab mouth once daily ECIndications: Gastroesophageal reflux disease, esophagitis presence not specified simvastatin (ZOCOR) 20 take 1 tablet by 90 Tab 3 02/18/2018 Active MG Oral Tab mouth at bedtime irbesartan (AVAPRO) 150 Take 1 Tab by 90 Tab 3 04/26/2018 Active MG Oral Tab mouth DAILY. meclizine (ANTIVERT) 25 Take 1 Tab by 90 Tab 5 06/13/2018 Active MG Oral Tab mouth THREE TIMES DAILY NEEDED for dizziness/vertig o. MORPHINE SULFATE IM Inject 7.5 mg 0 Active within a muscle DAILY. propranolol (INDERAL LA) Take 2 Caps by 180 Cap 5 12/02/2018 Active 120 MG Oral CAPSULE SR mouth DAILY. 24 HR butalbital-acetaminophen Take 2 Tabs by 100 Tab 4 12/02/2018 Active -caffeine (FIORICET) mouth EVERY SIX 50-325-40 MG Oral HOURS NEEDED TabIndications: Migraine (headache). with aura and without status migrainosus, not intractable cyclobenzaprine Take 1 Tab by 10 Tab 0 12/05/2018 Active (FLEXERIL) 10 MG Oral mouth EVERY Tab BEDTIME NEEDED (back pain). cyclosporin (RESTASIS) Place 1 Drop in 60 Each 5 01/23/2019 Active 0.05 % Ophthalmic both eyes TWICE Emulsion DAILY. documented as of this encounter (statuses as of 01/26/2019) Active Problems Problem Noted Date Primary osteoarthritis of left knee 11/29/2018 BMI 40.0-44.9, adult 09/30/2018 Morbid obesity due to excess calories 09/20/2018 Patellar pain, left 08/09/2018 Pelvic pain 07/19/2018 Overview: Added automatically from request for surgery [id number] Gross hematuria 07/12/2018 Essential hypertension 06/03/2018 PMB (postmenopausal bleeding) 03/01/2018 Overview: Added automatically from request for surgery [id number] LASHA (stress urinary incontinence, female) 03/01/2018 Overview: Added automatically from request for surgery [id number] Family history of coronary artery disease 12/10/2017 Overview: Mom and brother had myocardial infarctions and stents Irritable bowel syndrome with both constipation and diarrhea 11/02/2017 Chronic abdominal pain 05/20/2017 Gallstones 09/21/2016 Gallbladder sludge 08/27/2016 Overview: Added automatically from request for surgery [id number] Acute iritis of left eye 06/17/2016 Pseudophakia 06/17/2016 Keratitis sicca, bilateral 06/17/2016 Chronic migraine 02/27/2016 Insufficiency of tear film of both eyes 01/02/2015 Mixed hyperlipidemia 01/02/2015 Benign paroxysmal vertigo of both ears 01/02/2015 Migraine headache 05/04/2007 Ankylosing spondylitis 05/04/2007 Chronic Low Back Pain 05/04/2007 Overview: Dr [facility] Work related injury Fibromyalgia 05/04/2007 GERD (gastroesophageal reflux disease) 05/04/2007 [facility] documented as of this encounter (statuses as of 01/26/2019) Resolved Problems Problem Noted Date Resolved Date Foot pain, left 08/09/2018 12/14/2018 Sleep apnea 01/27/2017 09/24/2017 Overview: Noted By Ivonne Owens NP 03/20/16 Recurrent cold sores 01/02/2015 09/24/2017 Extreme obesity 01/02/2015 09/24/2017 Wrist fracture, left 12/05/2010 01/02/2015 Other and combined forms of senile cataract 03/27/2008 03/19/2017 High cholesterol 09/24/2017 documented as of this encounter (statuses as of 01/26/2019) Immunizations Name Administration Dates Next Due Influenza (IM) Preservative Free 11/17/2018, 11/04/2017, 11/05/2016 Influenza Vaccine High Dose 01/02/2015 ZOSTER (SHINGRIX) VACCINE 03/10/2018 documented as of this encounter Social History Tobacco Use Types Packs/Day Years Used Date Never Smoker 0 Smokeless Tobacco: Never Used Alcohol Use Drinks/Week [...] Sign Reading Time Taken Comments Blood Pressure 148/82 01/26/2019 2:28 PM EST Pulse 65 01/26/2019 2:28 PM EST Temperature 35.7 01/26/2019 2:28 PM EST C (96.3 F) Respiratory Rate - - Oxygen Saturation 99% 01/26/2019 2:28 PM EST Inhaled Oxygen Concentration - - Weight 99.8 kg (220 lb) 01/26/2019 2:28 PM EST Height 157.5 cm (5' 2") 01/26/2019 2:28 PM EST Body Mass Index 40.24 01/26/2019 2:28 PM EST documented in this encounter Patient Instructions Patient InstructionsLizzy Capellan CRNP - 01/26/2019 2:15 PM ESTUrine cytology To see Dr Obando to discuss treatment options for incontinence documented in this encounter Progress Notes Lizzy Capellan CRNP - 01/26/2019 2:15 PM EST PATIENT: Tamiko Donovan : 1950 DATE OF SERVICE: 01/26/2019 CHIEF COMPLAINT: Chief Complaint Patient presents with Hematuria 6 month follow up. Subjective HISTORY OF PRESENT ILLNESS: Tamiko Donovan is a 68-y.o. female.initially seen by Dr Marie for history of gross hematuria. CT cleared the upper tract from any significant pathology. Cystoscopy done 07/19/[address] Marie was negative. Patient is here in follow up and reports no further blood in urine, urinary tract infection but admits to urgency and urge incontinence. Patient reports pantiliners x 3 daily soaked. She states she hada " bladder sling " in 02/[address] Mckenzie and her incontinence recurred after about a month. Patient admits to nocturia x 2-4. She admits to a sinus infection and has nausea and vomiting due to sinus drainage. She reports back pain secondary to back injury 20 years ago and is on Morphine. Patient reports she is to have left knee replacement in 02/2019. AUA 24 Bother 6 HPI Past Medical History: Diagnosis Date Esophagitis 05/04/2007 [...] of contraception, presenting hazards to health Postmenopausal Reflex sympathetic dystrophy right ankle Sleep apnea pt had home sleep study Wrist fracture fractured bilateral wrists, right wrist twice Wrist fracture, left 12/05/2010 Family History Problem Relation Age of Onset [...] family history Current Outpatient Medications Medication Sig Oacsbcv-Mzocnnjjpxikz-Dtautaxw (EXCEDRIN MIGRAINE) 250-250-65 MG Oral Tab Take 2 Tabs by mouth NEEDED. jawjsvxtce-mzgpxigfwpqxh-zhqhklsp (FIORICET) 50-325-40 MG Oral Tab Take 2 Tabs by mouth EVERYSIX HOURS NEEDED (headache). cyclobenzaprine (FLEXERIL) 10 MG Oral Tab Take 1 Tab by mouth EVERY BEDTIME NEEDED (back pain). cyclosporin (RESTASIS) 0.05 % Ophthalmic Emulsion Place [...] mouth THREE TIMES DAILY NEEDED for dizziness/vertigo. MORPHINE SULFATE IM Inject 7.5 mg within a muscle DAILY. pantoprazole (PROTONIX) 40 MG Oral Tab EC [...] Patient reports swelling of lower extremities after shelter use. Prednisone GI Reaction Sudafed Pe Maximum [...] Financial resource strain: Not on file Food insecurity Worry: Not on file Inability: Not on file Transportation needs Medical: Not on file Non-medical: Not on file Tobacco Use Smoking status: Never Smoker Smokeless tobacco: Never Used Substance and Sexual Activity Alcohol use: Yes Alcohol/week: 0.0 standard drinks Drug use: Yes Types: Marijuana Comment: Pt states she has not smoked marijuana in 3 days Sexual activity: Yes Partners: Male Lifestyle Physical activity Days per week: Not on file Minutes per session: Not on file Stress: Not on file Relationships Social connections Talks on phone: Not on file Gets together: Not on file Attends evangelical service: Not on file Active member of club or organization: Not on file Attends meetings of clubs or organizations: Not on file Relationship status: Not on file Intimate partner violence Fear of current or ex partner: Not [...] Concern Yes Social History Narrative Lives in [facility] on disability Single has a boyfriend REVIEW OF SYSTEMS: ROSREVIEW OF ALL OTHER SYSTEMS ARE NEGATIVE EXCEPT LISTED IN HPI Objective PHYSICAL EXAM: VITALS: BP (!) 148/82 (BP Location: Left arm, Patient Position: Sitting) | Pulse 65 | Temp 96.3 F (35.7 C) (Temporal) | Ht 5' 2" (1.575 m) | Wt 220 lb (99.8 kg) | SpO2 99% | BMI 40.24 kg/m Body mass index is 40.24 kg/ m. Physical Exam Constitutional: Appearance: Normal appearance. She is well-developed. HENT: Head: Normocephalic and atraumatic. Cardiovascular: Rate and Rhythm: Normal rate and regular rhythm. Heart sounds: Normal heart sounds. Pulmonary: Effort: Pulmonary effort is normal. Breath sounds: Normal breath sounds. No wheezing. Abdominal: General: Bowel sounds are normal. There is no distension. Palpations: Abdomen is soft. Tenderness: There is no abdominal tenderness. There is no right CVA tenderness, left CVA tenderness or guarding. Skin: General: Skin is warm and dry. Neurological: Mental Status: She is alert and oriented to person, place, and time. Psychiatric: Judgment: Judgment normal. Results for orders placed or performed in visit on 01/26/19 POST VOID RESIDUAL MEASUREMENT Result Value Ref Range POST VOID RESIDUAL 181 ml LONGITUDINAL AXIS 27 cm x cm HORIZONTAL AXIS 16 cm x cm URINE DIP CLINITEK (AMB POCT) Result Value Ref Range URINE GLUCOSE (POCT) Negative Negative mg/dl URINE BILIRUBIN (POCT) Small (A) Negative Urine Ketones (POCT) Negative Negative URINE SPECIFIC GRAVITY (POCT) 1.030 1.005 - 1.030 URINE BLOOD (POCT) Moderate (A) Negative URINE PH (POCT) 5.5 5.0 - 8.0 URINE PROTEIN (POCT) Trace (A) Negative mg/dl URINE UROBILINOGEN (POCT) 0.2 0.2 - 1.0 mg/dl URINE NITRITES (POCT) Negative Negative URINE LEUKOCYTES (POCT) Negative Negative Cells/uL ASSESSMENT / IMPRESSION: ICD-9-CM ICD-10-CM 1. Gross hematuria with a negative workup 599.71 R31.0 URINE DIP CLINITEK (AMB POCT) POST VOID RESIDUAL MEASUREMENT NON-GYNECOLOGIC CYTOLOGY Plan Urine for cytology today. Patient wishes to follow up with Dr Obando regarding her incontinence to review her options. Author: RICHARD Ordonez 01/26/2019 14:44 documented in this encounter Plan of Treatment Date Type Specialty Care Team Description 02/21/2019 Office Visit Internal Medicine Ghulam Castellon MD [address] [place] [address] [phone] 04/28/2019 IPPR Ophthalmology 04/28/2019 IPPR Ophthalmology 04/28/2019 Ocular Visit Optometry Bhavna Faith, OD [address] [place] [place] [address] 05/02/2019 Office Visit Urology Alycia Obando MD [address] [address] Name Type Priority Associated Diagnoses Order Schedule NON-GYNECOLOGIC CYTOLOGY Lab Routine Gross hematuria Ordered: 01/26/2019 Health Maintenance Due Date Last Done Comments DTaP/Tdap/Td Vaccines (1 - 1960 Tdap) FALL RISK ASSESSMENT 2014 PNEUMOCOCCAL 65+YRS (1 of 2 2014 - PCV13) MEDICARE ANNUAL WELLNESS 01/03/2016 01/02/2015 VISIT ZOSTER IMMUNIZATION SERIES 05/05/2018 03/10/2018 (2 of 2) DEPRESSION SCREENING 12/10/2018 12/10/2017 MAMMOGRAM (SCREENING) 12/10/2018 12/10/2017, 08/27/2016, 02/04/2015, Additional history exists LIPID DISORDER SCREENING 02/18/2019 02/18/2018, 2017, 02/03/2016, Additional history exists DIABETES SCREENING 12/06/2019 12/05/2018, 06/14/2018, 03/14/2018, Additional history exists Colonoscopy 11/13/2021 11/13/2016, 11/13/2016, 12/29/2011 (Previously completed) OSTEOPOROSIS SCREENING 01/15/2025 01/15/2015, 01/19/2011 INFLUENZA VACCINE Completed 11/17/2018, 11/04/2017, 11/05/2016, Additional history exists HEPATITIS A IMMUNIZATION Aged Out No longer eligible SERIES based on patient's age to complete this topic HPV IMMUNIZATION SERIES Aged Out No longer eligible based on patient's age to complete this topic MENINGOCOCCAL VACCINE IMM Aged Out No longer eligible based on patient's age to complete this topic documented as of this encounter Goals Goal Patient Goal Associated Recent Patient-Stated? Author Type Problems Progress Blood Pressure Blood Pressure 148/82 No Cande, < 150/90 (01/26/2019 Ghulam Sherman, 2:28 PM EST) Note: This is an individualized treatment (blood pressure) goal for Tamiko M Donovan: Displayed above (on the left) is your goal for blood pressure control. Your most recent blood pressure is also shown above, on the right. You should try to achieve blood pressures that are lower than your goal listed above (on the left). Weight loss vs. 18 mo Lifestyle 11 (01/26/2019 2:28 PM Ghulam Doty MD max (lbs) >= 10 EST) Note: This is an individualized lifestyle goal for Tamikojavier Donovan: Your body mass index (BMI) is [...] of this encounter Implants Implanted Type Area Painter Plate Device Shelf Model / Identifier Expiration Serial / Lot Date Iol, [id number] 23.0 Diopter - [id number] Left: Eye STORZ [id number] / Implanted: Qty: 1 on 04/02/2008 at [facility] / [id number] Iol, [id number] 22.5 Diopter - [id number] Right: Eye STORZ [id number] / Implanted: Qty: 1 on 04/16/2008 at [facility] / [id number] Sling, Fit Advantage - [id number] N/A: [place] 01/18/2020 [id number] / Implanted: Qty: 1 on 03/16/2018 by Lazaro Mckenzie MD at [facility] Bladder [employer]ENTIFIC / [id number] documented as of this encounter Procedures Procedure Name Priority Date/Time Associated Comments Diagnosis URINE DIP CLINITEK Routine 01/26/2019 2:32 Gross hematuria Results for this (AMB POCT) PM EST procedure are in the results section. POST VOID RESIDUAL Routine 01/26/2019 Gross hematuria Results for this MEASUREMENT procedure are in the results section. documented in this encounter Results URINE DIP CLINITEK (AMB POCT) (01/26/2019 2:32 PM EST) URINE GLUCOSE (POCT) Negative Negative mg/dl [facility] POCT URINE BILIRUBIN Small (A) Negative [facility] (POCT) POCT Urine Ketones (POCT) Negative Negative [facility] POCT URINE SPECIFIC 1.030 1.005 - 1.030 [facility] GRAVITY (POCT) POCT URINE BLOOD (POCT) Moderate (A) Negative [facility] POCT URINE PH (POCT) 5.5 5.0 - 8.0 [facility] POCT URINE PROTEIN (POCT) Trace (A) Negative mg/dl [facility] POCT URINE UROBILINOGEN 0.2 0.2 - 1.0 mg/dl [facility] (POCT) POCT URINE NITRITES Negative Negative [facility] (POCT) POCT URINE LEUKOCYTES Negative Negative [facility] (POCT) Cells/uL POCT Specimen Urine - Urine specimen (specimen) Performing Organization Address City/[facility]/Zipcode Phone Number [facility] [address] [place] [address] POST VOID RESIDUAL MEASUREMENT (01/26/2019) POST VOID RESIDUAL 181 ml [facility] POCT LONGITUDINAL AXIS 27 cm x cm [facility] POCT HORIZONTAL AXIS 16 cm x cm [facility] POCT Performing Organization Address [facility] Phone Number [facility] [address] [address] [phone] documented in this encounter Visit Diagnoses Diagnosis Gross hematuria documented in this encounter Insurance Payer Benefit Plan / Subscriber ID Effective Dates Phone Address Type Group AETNA MEDICARE AETNA MEDICARE xxxxxxxx 2016-Present [employer] ADVANTAGE ADVANTAGE Guarantor Name Account Type Relation to Date of Phone Billing Address Patient Tamiko Donovan Personal/Famil 1950 [address] (Home) [place], [place] [phone] (Work) documented as of this encounter Advance Directives Type Date Recorded 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
--- OUTSIDE RECORDS SUMMARY | 2019-02-04 13:43 | XMS REPORT | Continuity of Care Document ---
:1950 External Reference #:[id number] Author Name Allyson Chu M.D. 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 Onset: 01/02/2019 Social History Type Date Description Comments Sex Unknown ETOH Use Occasionally consumes alcohol Tobacco Use Start: Unknown Patient has never smoked Smoking Status Reviewed: 01/02/19 Patient has never smoked Exercise Type/Frequency Exercises sporadically Allergies, Adverse Reactions, Alerts Active Allergies Reaction Severity Comments Date Talwin Tongue swelling, throat swelling Severe 01/02/2019 Procaine "convulsions" Severe 01/02/2019 Calan hypotension 01/02/2019 Sulfamethizole gi upset 01/02/2019 Honey Bee Venom anaphylaxis Severe 01/02/2019 Oxycontin edema 01/02/2019 Medications Active Medications SIG Qnty Indications Ordering Date Provider Meloxicam Take 1 Tablet By Unknown 15mg Tablets Mouth Every Day Cyclobenzaprine HCL Aubrey Yanezia 10mg A., PA-C Tablets Morphine Sulfate Take 1/2 Tablet Unknown 15mg Tablets By Mouth Every 12 Hours as Directed Chronic Pain Propranolol HCL ER Ghulam Castellon, 120mg Caps ER 24HR Irbesartan Graciela, 150mg Tablets DALIA Mckee Restasis Unknown 0.05% Emulsion Doxycycline Hyclate take 1 tablet by Unknown 100mg mouth twice a day Tablets for 10 days Ibu Lazaro Mckenzie 600mg Tablets MD Kristin Oxycodone HCL Lazaro Mckenzie 5mg Tablets MD Kristin Irbesartan Graciela, 75mg Tablets DALIA Mckee Morphine Sulfate ER Unknown 30mg Tablets ER Osteo Bi-Flex Regular Unknown Strength L-Lysine Unknown Protonix Unknown Immunizations Description No Information Available Vital Signs Date Vital Result Comment 01/02/2019 2:45pm Height 62 inches 5'2" Weight 226.00 lb Heart Rate 68 /min BP Systolic Sitting 122 mmHg BP Diastolic Sitting 78 mmHg Respiratory Rate 18 /min Body Temperature 97.6 F Pain Level 8 BMI (Body Mass Index) 41.3 kg/m2 Results Description No Information Available Procedures Description No Information Available Medical Devices Description No Information Available Encounters Type Date Location Provider Dx Diagnosis Office Visit 01/02/[address] [facility] Allyson Chu, M45.9 Ankylosing 1:30p at [place] spondylitis of unspecified sites in spine M79.7 Fibromyalgia M25.562 Pain in left knee M25.462 Effusion, left knee M17.12 Unilateral primary osteoarthritis, left knee Assessments Date Code Description Provider 01/02/2019 M45.Marco Ankylosing spondylitis of unspecified sites in Allyson Chu M.D. spine 01/02/2019 M79.7 Fibromyalgia Allyson Chu M.D. 01/02/2019 M25.562 Pain in left knee Allyson Chu M.D. 01/02/2019 M25.462 Effusion, left knee Allyson Chu M.D. 01/02/2019 M17.12 Unilateral primary osteoarthritis, left knee Allyson Chu M.D. Plan of Treatment Future Appointment(s):03/14/2019 4:30 pm - Allyson Chu M.D. at [facility] at Btgjlj9801/02/2019 - Allyson Chu M.D.M45.9 Ankylosing spondylitis of unspecified sites in spineFollow up:Follow up: 7-10 days before swjrutdQ40.7 XjxtnferdmqpD72.562 Pain in left kneeM25.462 Effusion, left kneeM17.12 Unilateral primary osteoarthritis, left knee Functional Status Description No Information Available Mental Status Description No Information Available Referrals Description No Information Available
--- OUTSIDE RECORDS SUMMARY | 2019-02-04 13:43 | XMS REPORT | Continuity of Care Document ---
:1950 External Reference #:[id number] Author Name Jason Quezada DO, MPH Address [address] [place] [address], [address] [place] [id number] Care Team Providers Name Role Phone Neymar Wilson M.D. 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 [employer] Medicine Problems Active Problems Provider Date Chronic pain due to injury Jason Quezada DO MPH Onset: 12/22/2010 Thoracic and lumbosacral neuritis Jason Quezada DO, MPH Onset: 05/15/2008 Nonallopathic lesion of the thoracic region Jason Quezada DO, MPH Onset: Nonallopathic lesion of lumbar region QuezadaJason rosas DO, MPH Onset: 05/15/2008 Myalgia & Myositis Unspecified QuezadaJason rosas, DO, MPH Onset: 05/15/2008 Spinal enthesopathy Jason Quezada DO, MPH Onset: 05/15/2008 Synovitis and tenosynovitis Jason Quezada DO, MPH Onset: 05/15/2008 Enthesopathy of hip region QuezadaJason rosas, DO, MPH Onset: 05/15/2008 Low back pain Jason Quezada, DO, MPH Onset: 05/15/2008 Social History Type Date Description Comments Sex Unknown Tobacco Use Start: Unknown Never Smoked Cigarettes ETOH Use Denies alcohol use Tobacco Use Start: Unknown Patient has never smoked Smoking Status Reviewed: 01/09/19 Patient has never smoked Allergies, Adverse Reactions, Alerts Active Allergies Reaction Severity Comments Date Nov01/12/2006 Oxycontin 01/12/2006 Prednisone 01/12/2006 Sulfa 01/12/2006 Medications Active Medications SIG Qnty Indications Ordering Provider Date Voltaren sig:apply 4grams 300gm Jason Quezada DO, 07/14/2018 1% Gel to affected area MPH four times a day as directed Morphine Sulfate si/2 by mouth 30tabs Jason Quezada DO, 04/13/2018 15mg every 12 hours as MPH Tablets directed chronic pain patient Morphine Sulfate ER si by mouth 15tabs Jason Quezada DO, 04/13/2018 every day as MPH 15mg Tablets ER directed chronic pain patient Mobic si by mouth 30tabs Jason Quezada DO, 03/26/2010 15mg Tablets every day as MPH directed chronic pain patient Miralax si scoop in 255gm Jason Quezada DO, 07/26/2009 3350NF Powder 8oz of water x 3 MPH nights as directed fill under workman's compensation. Irbesartan 1/2 by mouth Unknown 150mg daily Tablets Probiotic 1 by mouth daily Unknown Multi-Enzyme Tablets Propranolol HCL ER 2 by mouth daily Unknown 120mg Caps ER 24HR Protonix Unknown 40mg Solution Rec Simvastatin qpm Unknown 20mg Tablets Excedrin Migraine Unknown [id number] Tablets Emergen-C Vitamin C Unknown Packet Hair/Skin/Nails 30tabs Unknown Tablets Dhea bid Unknown 50mg Capsules Meclizine HCL 1 po qd ud Unknown 25mg Tablets Fioricet si-2 po qd ud 60caps Unknown [id number] Capsules History Medications Voltaren Apply 4Grams To 5Tubes Jason Quezada DO, 07/14/2018 - 1% Gel Affected Area Four MPH 07/14/2018 Times A Day Ud Immunizations Description No Information Available Vital Signs Date Vital Result Comment 01/09/2019 3:31pm BP Systolic 130 mmHg BP Diastolic 74 mmHg Heart Rate 76 /min Respiratory Rate 20 /min Height 62 inches 5'2" Weight 220.00 lb Pain Level 4 Pain at this time. Pain Level With Medicine 4 on average with meds Pain Level Without Medicine 9 without meds BMI (Body Mass Index) 40.2 kg/m2 12/21/2018 2:52pm BP Systolic 128 mmHg BP Diastolic 80 mmHg Heart Rate 88 /min Respiratory Rate 20 /min Height 62 inches 5'2" Weight 222.00 lb Pain Level 4 Pain at this time. Pain Level With Medicine 4 on average with meds Pain Level Without Medicine 9 without meds Pain Level After Procedure 4 BP Systolic Recheck 136 mmHg Pulse:84 BP Diastolic Recheck 82 mmHg Pulse:84 BMI (Body Mass Index) 40.6 kg/m2 Results Description No Information Available Procedures Date Code Description Status 12/21/2018 97689 U/S Guidance For Needle Placement Completed 12/21/2018 70136 Inject Tendon/Ligament Completed 12/14/2018 17761 Omt 1-2 Body Regions Completed 09/13/2018 06235 Omt 1-2 Body Regions Completed Medical Devices Description No Information Available Encounters Type Date Location Provider Dx Diagnosis Office Visit 12/21/2018 Main Office as Of Jason Quezada DO G89.21 Chronic pain due 2:15p 03/18/13 MPH to trauma M54.5 Low back pain M25.531 Pain in right wrist M65.88 Other synovitis and tenosynovitis, other site Office Visit 12/14/2018 4:00p Main Office as Jason Quezada G89.21 Chronic pain due Of 03/18/13 DO, MPH to trauma M54.5 Low back pain M99.03 Segmental and somatic dysfunction of lumbar region Z79.891 half-way (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 of 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 Z79.891 half-way (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 of 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 Office Visit 11/14/2018 4:00p Main Office as Jason Quezada G89.21 Chronic pain due Of 03/18/13 DO, MPH to trauma M54.5 Low back pain Z79.891 half-way (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 of 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 Office Visit 10/14/2018 2:15p Main Office as Jason Quezada G89.21 Chronic pain due Of 03/18/13 DO, MPH to trauma M54.5 Low back pain Z79.891 half-way (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 of 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 Z79.891 half-way (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 of 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 Office Visit 09/13/2018 2:15p Main Office as Jason Quezada G89.21 Chronic pain due Of 03/18/13 DO, MPH to trauma M54.5 Low back pain M99.03 Segmental and somatic dysfunction of lumbar region 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 Z79.891 half-way (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 of 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 Office Visit 08/12/2018 1:30p Main Office as QuezadaJason rosas G89.21 Chronic pain due Of 03/18/13 DO, MPH to trauma M54.5 Low back pain 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 Office Visit 07/14/2018 2:45p Main Office as Jason Quezada G89.21 Chronic pain due Of 03/18/13 DO, MPH to trauma M54.5 Low back pain 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 Assessments Date Code Description Provider 01/09/2019 G89.21 Chronic pain due to trauma Jason Quezada DO, MPH 01/09/2019 M54.5 Low back pain Jason Quezada DO, MPH 01/09/2019 M25.531 Pain in right wrist Jason Quezada DO, MPH 01/09/2019 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 Jason Quezada DO, MPH 01/09/2019 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 Jason Quezada DO, MPH 12/21/2018 G89.21 Chronic pain due to trauma Jason Quezada DO, MPH 12/21/2018 M54.5 Low back pain Jason Quezada DO, MPH 12/21/2018 M25.531 Pain in right wrist Jason Quezada DO, MPH 12/21/2018 M65.88 Other synovitis and tenosynovitis, other Jason Quezada DO , MPH site 12/14/2018 G89.21 Chronic pain due to trauma Quezada, Jason, DO, MPH 12/14/2018 M54.5 Low back pain Quezada, Jason, DO, MPH 12/14/2018 M99.03 Segmental and somatic dysfunction of lumbar Quezada, Jason, DO, MPH region 12/14/2018 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 Quezada, Jason , DO, MPH 12/14/2018 Z79.891 half-way (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 of 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 Quezada, Jason , DO, MPH 11/14/2018 G89.21 Chronic pain due to trauma Quezada, Jason, DO, MPH 11/14/2018 M54.5 Low back pain Quezada, Jason, DO, MPH 11/14/2018 Z79.891 half-way (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 of 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 Quezada, Jason , DO, MPH 11/14/2018 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 Quezada, Jason , DO, MPH 10/14/2018 G89.21 Chronic pain due to trauma Quezada, Jason, DO, MPH 10/14/2018 M54.5 Low back pain Quezada, Jason, DO, MPH 10/14/2018 Z79.891 half-way (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 of 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 Quezada, Jason , DO, MPH 10/14/2018 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 Quezada, Jason , DO, MPH 09/13/2018 G89.21 Chronic pain due to trauma Quezada, Jason, DO, MPH 09/13/2018 M54.5 Low back pain Quezada, Jason, DO, MPH 09/13/2018 M99.03 Segmental and somatic dysfunction of lumbar Quezada, Jason, DO, MPH region 09/13/2018 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 Quezada, Jason , DO, MPH 09/13/2018 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 Quezada, Jason , DO, MPH 08/12/2018 G89.21 Chronic pain due to trauma Quezada, Jason, DO, MPH 08/12/2018 M54.5 Low back pain Quezada, Jason, DO, MPH 08/12/2018 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 Jason Quezada DO MPH 08/12/2018 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 Jason Quezada DO MPH 07/14/2018 G89.21 Chronic pain due to trauma Jason Quezada DO MPH 07/14/2018 M54.5 Low back pain Jason Quezada DO MPH 07/14/2018 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 Symptoms and complaints discussed and reviewed today. No significant changes in physical findings. Continue current medical pain management.M54.5 Low back painComments:Chronic. Symptoms and complaints discussed and reviewed today.No changes in physical findings. Patient is stable and comfortable when current medical therapy is rendered.M25.531 Pain in right wristComments:Chronic. Symptoms and complaints discussed and reviewed today. No significant changes in physical findings. Continue current medical pain management.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New Labs:Urine Drug Screen, Ordered: 01/09/19Comments:Urine drug screen sample taken. Rapid Point of Care Cup was reviewed in office with patient. Will send out UDT Rapid to Quantitative lab for confirmation testing. Urine Drug Testing (UDT) was done today to monitor opiate use and to monitor possible use of illicit substances. I will discuss the results at the next appointment from the Quantitative lab.The following tests were ordered:6 AM, AMPH, SAVANNAH, EHSAN, BUP, CARIS, COCM, ETG, FENT, MCSHSG, OPI, OXY, PCP, TAPEN, XTSY, ZOLP. A urine drug test (UDT) using a rapid screen cup was ordered for this patient and collected on site today. Creatinine has been ordered as well for specimen validity, not for kidney function. Urine Drug Testing is a mandatory component of chronic opioid management, as part of the baseline assessment and ongoing re- assessment of opioid therapy. Per [place] [employer], [place] Non-Acute Pain Medical Treatment Guidelines, section F.3.d.i. This test is to be used in conjunction with other clinical information when decisions are to be made to continue, adjust or discontinue treatment. This information includes clinical observation, results of addiction screening, pill counts, and prescription drug monitoring reports. Preliminary UDT screen results are not final and should not be used to determine patient care or plan of treatment. This sample will be sent out for a more comprehensive quantitative confirmation LCMS study. It is part of the treatment process of prescribing controlled substances and is considered standard of care at this clinic.AllComments:Continue current medical pain management; injection therapy , osteopathic manipulation, PT / modalities, and consults as needed to manage chronic pain.Non - opioid pain management discussed and optionsdiscussed.Side effects discussed; anticipatory guidance given. Patient clearly understand and agree with all medical treatments and suggestions. 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 Importance of regular nutrition throughout the day discussed.Activity as toleratedContinue with PCP Functional Status Description No Information Available Mental Status Description No Information Available Referrals Description No Information Available
--- OUTSIDE RECORDS SUMMARY | 2019-02-04 13:43 | XMS REPORT | Summary of Care ---
:1950 Author Organization [facility] Address [address] [address] Care Team Providers Name Role Phone CandeGhulam Whit Primary Care Provider Reason for Visit Reason Comments Follow Up Left knee pain. Patient had a Depo 80mg injection on 11/29/2018 and states that it only helped for a couple of days. Encounter Details Date Type Department Care Team Description 12/13/2018 Office Visit [facility] Rc Melton, Primary osteoarthritis - [place] of left knee (Primary [address] [facility] Dx) [address] [place] [address] [place] [address] [phone] Allergies Active Allergy Reactions Severity Noted Date Comments Bee Sting 05/04/2007 Calan Sr Cardiac Reaction 01/18/2009 Sumatriptan Succinate 05/04/2007 Pregabalin Swelling 12/05/2010 ankles Procaine 05/04/2007 Oxycodone Hcl Other 05/04/2007 Patient reports swelling of lower extremities after ocean transportation intermediary use. Prednisone GI Reaction 09/12/2007 Sudafed Pe Maximum 05/04/2007 Sulfa Antibiotics GI Reaction 08/05/2012 Severe nausea [place]win Anaphylaxis High 01/02/2015 Tizanidine Hcl GI Reaction 08/05/2012 Severe nausea documented as of this encounter (statuses as of 12/15/2018) Medications Medication Sig Dispensed Refills Start Date End Date Status Prasterone (DHEA) (DHEA) Take 1 Tab by 0 Active 50 MG Oral Tab mouth TWICE DAILY. L-Lysine 500 MG Oral Tab Take 1 Tab by 0 Active mouth NEEDED Tydcewn-Mukvqgdnuxgyk-Gn Take 2 Tabs by 0 Active ffeine [...] mouth EVERY Tab BEDTIME NEEDED (back pain). documented as of this encounter (statuses as of 12/15/2018) Active Problems Problem Noted Date Primary osteoarthritis of left knee 11/29/2018 BMI 40.0-44.9, adult 09/30/2018 Morbid obesity due to excess calories 09/20/2018 Patellar pain, left 08/09/2018 Pelvic pain 07/19/2018 Overview: Added automatically from request for surgery [id number] Gross hematuria 07/12/2018 Essential hypertension 06/03/2018 PMB (postmenopausal bleeding) 03/01/2018 Overview: Added automatically from request for surgery [id number] LASHA (stress urinary incontinence, female) 03/01/2018 Overview: Added automatically from request for surgery [id number] Family history of coronary artery disease 12/10/2017 Overview: Mom and brother had myocardial infarctions and stents Irritable bowel syndrome with both constipation and diarrhea 11/02/2017 Chronic abdominal pain 05/20/2017 Gallstones 09/21/2016 Gallbladder sludge 08/27/2016 Overview: Added automatically from request for surgery [id number] Acute iritis of left eye 06/17/2016 Pseudophakia [...] reflux disease) 05/04/2007 Overview: GI MD Waite [facility] esophago-gastroduodenoscopy 2009 documented as of this encounter (statuses as of 12/15/2018) Resolved Problems Problem Noted Date Resolved Date Foot pain, left 08/09/2018 12/14/2018 Sleep apnea 01/27/2017 09/24/2017 Overview: Noted By Ivonne Owens NP 03/20/16 Recurrent cold sores 01/02/2015 09/24/2017 Extreme obesity 01/02/2015 09/24/2017 Wrist fracture, left 12/05/2010 01/02/2015 Other and combined forms of senile cataract 03/27/2008 03/19/2017 High cholesterol 09/24/2017 documented as of this encounter (statuses as of 12/15/2018) Immunizations Name Administration Dates Next Due Depo Medrol (80mg) 02/22/2015 Influenza (IM) Preservative Free 11/17/2018, 11/04/2017, 11/05/2016 [...] Sign Reading Time Taken Comments Blood Pressure 136/85 12/13/2018 3:00 PM EDT Pulse 74 12/13/2018 3:00 PM EDT Temperature - - Respiratory Rate - - Oxygen Saturation - - Inhaled Oxygen Concentration - - Weight 100.2 kg (221 lb) 12/13/2018 3:00 PM EDT Height 157.5 cm (5' 2") 12/13/2018 3:00 PM EDT Body Mass Index 40.42 12/13/2018 3:00 PM EDT documented in this encounter Progress Notes Rc Melton MD - 12/13/2018 2:45 PM EDT Name: Tamiko Donovan : 1950 Date of Service: 12/13/2018 Chief Complaint Patient presents with Follow Up Left knee pain. Patient had a Depo 80mg injection on 11/29/2018 and states that it only helped fora couple of days. History of Present Illness: Tamiko Donovan is a 68-y.o. female. The above is noted. Patient is in today for follow-up of leftknee pain. Patient was last seen in the office on 2018 regarding her left knee. At that time she received an injection of Marcaine and Depo-Medrol. Patient states that the injection lasted several days however her pain has continued. Physical Exam:BP 136/85 | Pulse 74 | Ht 5' 2" (1.575 m) | Wt 221 lb (100.2 kg ) | BMI 40.42 kg/m Well-developed well-nourished female in minimal discomfort at rest. Patient is neurovascularly intact. Range of motion of left knee: Reveals full extension, flexion to 90 degrees. (Patient has 0 to 90 degrees in her right knee also) Patient has no varus or valgus instability. Patient walks with an antalgic gait with respect to herleft knee. Impression: DJD bilateral knees left greater than right Plan: Patient wishes to be considered a candidate for left total knee arthroplasty when feasible I believethe patient is a candidate for left total knee arthroplasty however I would like to defer her total knee arthroplasty until February 2019 due to the fact that she had a recent injection of Marcaine and Depo-Medrol /11/29/18. All questions were answered. There are no Patient Instructions on file for this visit. To do slip will be sent to surgical instrument mechanic Nohemi Funes and we will seek to schedule the patientfor a left total knee arthroplasty in February 2019. Patient will also seek a favorable medical evaluation note from her primary care physician Dr. Tab Koehler. Author: Rc Melton MD 12/13/2018 15:03 documented in this encounter Plan of Treatment Date Type Specialty Care Team Description 01/24/2019 Office Visit Urology Lizzy Capellan CRNP [address] [address] 02/20/2019 Office Visit Internal Medicine Ghulam Castellon MD [address] [place] [address] [phone] 02/24/2019 Office Visit Orthopedics Silvia Saucedo, RPA-C [address] [place] [address] [place] [address] [phone] 02/24/2019 Lab Internal Medicine 03/13/2019 Hospital Encounter [facility] Rc Melton, IP Reservation [address] [facility] [place] [address] [phone] 03/13/2019 Surgery Acute [facility] Rc Melton, MAKOPLASTY TOTAL MD KNEE [address] [facility] [place] [address] [phone] 03/28/2019 Office Visit Orthopedics Rc Melton MD [address] [facility] [place] [address] [phone] 04/06/2019 IPPR Ophthalmology 04/06/2019 IPPR Ophthalmology 04/06/2019 Ocular Visit Optometry Bhavna Faith, OD [address] [address] [phone] Health Maintenance Due Date Last Done Comments FALL RISK ASSESSMENT 2014 PNEUMOCOCCAL 65+YRS (1 of 2 2014 - PCV13) MEDICARE ANNUAL WELLNESS 01/03/2016 01/02/2015 VISIT ZOSTER IMMUNIZATION SERIES 05/05/2018 03/10/2018 (2 of 2) DEPRESSION SCREENING 12/10/2018 12/10/2017 MAMMOGRAM (SCREENING) 12/10/2018 12/10/2017, 08/27/2016, 02/04/2015, Additional history exists LIPID DISORDER SCREENING 02/18/2019 02/18/2018, 2017, 02/03/2016, Additional history exists DIABETES SCREENING 12/06/2019 12/05/2018, 06/14/2018, 03/14/2018, Additional history exists COLONOSCOPY SCREENING 11/13/2021 11/13/2016, 11/13/2016, 12/29/2011 (Previously completed) OSTEOPOROSIS SCREENING 01/15/2025 01/15/2015, 01/19/2011 INFLUENZA VACCINE Completed 11/17/2018, 11/04/2017, 11/05/2016, Additional history exists HPV IMMUNIZATION SERIES Aged Out No longer eligible based on patient's age to complete this topic MENINGOCOCCAL VACCINE IMM Aged Out No longer eligible based on patient's age to complete this topic documented as of this encounter Goals Goal Patient Goal Associated Recent Patient-Stated? Author Type Problems Progress Blood Pressure Blood Pressure 108/50 No [place], < 150/90 (12/14/2018 Ghulam Sherman, 1:51 PM EDT) Note: This is an individualized treatment (blood pressure) goal for Tamiko Donovan: Displayed above (on the left) is your goal for blood pressure control. Your most recent blood pressure is also shown above, on the right. You should try to achieve blood pressures that are lower than your goal listed above (on the left). Weight loss vs. 18 mo Lifestyle 0 (12/14/2018 1:51 PM Ghulam Doty MD max (lbs) >= 10 EDT) Note: This is an individualized lifestyle [...] of this encounter Implants Implanted Type Area Pharmacy Service Associate Device Shelf Model / Identifier Expiration Serial / Lot Date Iol, [id number] 23.0 Diopter - [id number] Left: Eye STORZ [id number] / Implanted: Qty: 1 on 04/02/2008 at [facility] / [id number] Iol, [id number] 22.5 Diopter - [id number] Right: Eye STORZ [id number] / Implanted: Qty: 1 on 04/16/2008 at [facility] / [id number] Gary Kaur - [id number] N/A: WILLOW 01/18/2020 [id number] / Implanted: Qty: 1 on 03/16/2018 by Lazaro Mckenzie MD at [facility] / [id number] documented as of this encounter Results Not on filedocumented in this encounter Visit Diagnoses Diagnosis Primary osteoarthritis of left knee - Primary Primary localized osteoarthrosis, lower leg documented in this encounter Insurance Payer Benefit Plan / Subscriber ID Effective Dates Phone Address Type Group AETNA MEDICARE AETNA MEDICARE xxxxxxxx 2016-Present [employer] ADVANTAGE ADVANTAGE Guarantor Name Account Type Relation to Date of Phone Billing Address Patient Tamiko Donovan Personal/Famil 1950 [address] (Home) [place], [place] [phone] [id number] (Work) documented as of this encounter Advance Directives Type Date Recorded Patient Planning Feeder Explanation Advance Directives 08/25/2018 11:23 AM
--- OUTSIDE RECORDS SUMMARY | 2019-02-04 13:43 | XMS REPORT | Continuity of Care Document ---
:1950 External Reference #:[id number] Author Name Jason Quezada DO, MPH Address [address] [place] [address], [address] [place] [address] Care Team Providers Name Role Phone Neymar Wilson M.D. - Family Care Team Information Paint Roller Covers Supervisor [phone] Medicine Ghulam Castellon M.D. - Internal Care Team Information Paint Roller Covers Supervisor Medicine Problems Active Problems Provider Date Chronic [...] Patient has never smoked Smoking Status Reviewed: 12/21/18 Patient has never smoked Allergies, Adverse Reactions, [...] qpm Unknown 20mg Tablets Excedrin Migraine Unknown [phone] Tablets Emergen-C Vitamin C Unknown Packet Hair/Skin/Nails 30tabs Unknown Tablets Dhea bid Unknown 50mg Capsules Meclizine HCL 1 po qd ud Unknown 25mg Tablets Fioricet si-2 po qd ud 60caps Unknown 22-786-98-30mg Capsules History Medications Voltaren Apply 4Grams To 5Tubes Jason Quezada DO, 07/14/2018 - 1% Gel Affected Area Four MPH 07/14/2018 Times A Day Ud Immunizations Description No Information Available Vital Signs Date Vital Result Comment 12/21/2018 2:52pm BP Systolic 128 mmHg BP [...] Pulse:84 BMI (Body Mass Index) 40.6 kg/m2 12/14/2018 3:49pm BP Systolic 128 mmHg BP Diastolic 78 mmHg Heart Rate 76 /min Respiratory Rate 20 /min Height 62 inches 5'2" Weight 224.00 lb Pain Level 4 Pain at this time. Pain Level With Medicine 3 on average with meds Pain Level Without Medicine 9 without meds BMI (Body Mass Index) 41.0 kg/m2 Results Description No Information Available Procedures Date Code Description Status 12/14/2018 08734 Omt 1-2 Body Regions Completed 09/13/2018 75547 Omt 1-2 Body Regions Completed Medical Devices Description No Information Available Encounters Type Date Location Provider Dx Diagnosis Office Visit 12/14/2018 Main Office as Of Jason Quezada DO G89.21 Chronic pain due 4:00p 03/18/13 MPH to trauma M54.5 Low back pain M99.03 Segmental and somatic dysfunction of lumbar region Z79.891 jail (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 of 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 Z79.891 jail (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 of 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 Office Visit 11/14/2018 4:00p Main Office as Jason Quezada [id number] Chronic pain due Of 03/18/13 DO, MPH to trauma M54.5 Low back pain Z79.891 jail (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 of 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 Office Visit 10/14/2018 2:15p Main Office as Jason Quezada [id number] Chronic pain due Of 03/18/13 DO, MPH to trauma M54.5 Low back pain Z79.891 jail (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 of 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 Office Visit 09/13/2018 2:15p Main Office as Jason Quezada G89.21 Chronic pain due Of 03/18/13 DO, MPH to trauma M54.5 Low back pain M99.03 Segmental and somatic dysfunction of lumbar region 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.891 jail (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 of 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 Office Visit 08/12/2018 1:30p Main Office as Jason Quezada G89.21 Chronic pain due Of 03/18/13 DO MPH to trauma M54.5 Low back pain 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 Office Visit 07/14/2018 2:45p Main Office as QuezadaJason rosas G89.21 Chronic pain due Of 03/18/13 DO MPH to trauma M54.5 Low back pain 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 Assessments Date Code Description Provider 12/21/2018 G89.21 Chronic pain due to trauma QuezadaJason rosas, DO, MPH 12/21/2018 M54.5 Low back pain QuezadaJason rosas, DO, MPH 12/21/2018 M25.531 Pain in right wrist QuezadaJason rosas, DO, MPH 12/21/2018 M65.88 Other synovitis and tenosynovitis, other Quezada, Jason, DO , MPH site 12/14/2018 G89.21 Chronic pain due to trauma QuezadaJohn rosasph, DO, MPH 12/14/2018 M54.5 Low back pain Quezada, Jason, DO, MPH 12/14/2018 M99.03 Segmental and somatic dysfunction of lumbar QuezadaJohn rosasph, DO, MPH region 12/14/2018 Z79.891 jail (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 of 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 Quezada, Jason , DO, MPH 12/14/2018 Z79.891 jail (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 of 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 Quezada, Jason , DO, MPH 11/14/2018 G89.21 Chronic pain due to trauma Quezada, Jason, DO, MPH 11/14/2018 M54.5 Low back pain Quezada, Jason, DO, MPH 11/14/2018 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 Quezada, Jason , DO, MPH 11/14/2018 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 Quezada, Jason , DO, MPH 10/14/2018 G89.21 Chronic pain due to trauma Quezada, Jason, DO, MPH 10/14/2018 M54.5 Low back pain Quezada, Jason, DO, MPH 10/14/2018 Z79.891 jail (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 of 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 Quezada, Jason , DO, MPH 10/14/2018 Z79.891 jail (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 of 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 Quezada, Jason , DO, MPH 09/13/2018 G89.21 Chronic pain due to trauma Quezada, Jason, DO, MPH 09/13/2018 M54.5 Low back pain Quezada, Jason, DO, MPH 09/13/2018 M99.03 Segmental and somatic dysfunction of lumbar Quezada, Jason, DO, MPH region 09/13/2018 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 Quezada, Jason , DO, MPH 09/13/2018 Z79.891 jail (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 of 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 Quezada, Jason , DO, MPH 08/12/2018 G89.21 Chronic pain due to trauma Quezada, Jason, DO, MPH 08/12/2018 M54.5 Low back pain Quezada, Jason, DO, MPH 08/12/2018 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 Quezada, Jason , DO, MPH 08/12/2018 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 Continue current medical pain management.M65.88 Other synovitis and tenosynovitis, other siteComments: Chronic. Symptoms and complaints discussed and reviewed today. Physical findings reviewed and warrant intervention. Continue current medical pain management. Injection therapy today - tendon sheath. Informed consent given/ refusal reviewed. See procedure sheet.AllComments:Continue current medical pain management; injection therapy, osteopathic manipulation, PT / modalities, and consults [...] while maintaining satisfactory side effect profile andminimizing patient resource specialist end-organ damage. Importance of regular nutrition throughout the day discussed.Activity as toleratedContinue with PCP Functional Status Description No Information Available Mental Status Description No Information Available Referrals Description No Information Available
--- OUTSIDE RECORDS SUMMARY | 2019-02-04 13:43 | XMS REPORT | Continuity of Care Document ---
:1950 External Reference #:[id number] Author Name Jason Quezada DO, MPH Address [address] [place] [address], [address] [place] [phone] Care Team Providers Name Role Phone Neymar Wilson M.D. 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 - Internal Care Team Information Plant Machinist [phone] Medicine Problems Active Problems Provider Date Chronic [...] Patient has never smoked Smoking Status Reviewed: 12/14/18 Patient has never smoked Allergies, Adverse Reactions, [...] qpm Unknown 20mg Tablets Excedrin Migraine Unknown [phone] Tablets Emergen-C Vitamin C Unknown Packet Hair/Skin/Nails 30tabs Unknown Tablets Dhea bid Unknown 50mg Capsules Meclizine HCL 1 po qd ud Unknown 25mg Tablets Fioricet si-2 po qd ud 60caps Unknown 71-474-67-30mg Capsules History Medications Voltaren Apply 4Grams To 5Tubes Jason Quezada DO, 07/14/2018 - 1% Gel Affected Area Four MPH 07/14/2018 Times A Day Ud Immunizations Description No Information Available Vital Signs Date Vital Result Comment 12/14/2018 3:49pm BP Systolic 128 mmHg BP Diastolic 78 mmHg Heart Rate 76 /min Respiratory Rate 20 /min Height 62 inches 5'2" Weight 224.00 lb Pain Level 4 Pain at this time. Pain Level With Medicine 3 on average with meds Pain Level Without Medicine 9 without meds BMI (Body Mass Index) 41.0 kg/m2 11/14/2018 3:22pm BP Systolic 128 mmHg BP Diastolic 78 mmHg Heart Rate 74 /min Respiratory Rate 20 /min Height 62 inches 5'2" Weight 225.00 lb Pain Level 6 Pain at this time. Pain Level With Medicine 5 on average with meds Pain Level Without Medicine 9 without meds BMI (Body Mass Index) 41.1 kg/m2 Results Description No Information Available Procedures Date Code Description Status 09/13/2018 08571 Omt 1-2 Body Regions Completed Medical Devices Description No Information Available Encounters Type Date Location Provider Dx Diagnosis Office Visit 11/14/2018 Main Office as Of Jason Quezada DO, G89.21 Chronic pain due 4:00p 03/18/13 MPH to trauma M54.5 Low back pain Z79.891 [facility] (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 of 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 Z79.891 knot tier (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 of 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 Office Visit 10/14/2018 2:15p Main Office as Jason Quezada G89.21 Chronic pain due Of 03/18/13 DO, MPH to trauma M54.5 Low back pain Z79.891 [facility] (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 of 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 Z79.891 [facility] (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 of 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 Office Visit 09/13/2018 2:15p Main Office as Jason Quezada G89.21 Chronic pain due Of 03/18/13 DO, MPH to trauma M54.5 Low back pain M99.03 Segmental and somatic dysfunction of lumbar region Z79.891 [facility] (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 of 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 Z79.891 knot tier (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 of 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 Office Visit 08/12/2018 1:30p Main Office as Jason Quezada G89.21 Chronic pain due Of 03/18/13 DO, MPH to trauma M54.5 Low back pain Z79.891 [facility] (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 of 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 Z79.891 [facility] (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 of 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 Office Visit 07/14/2018 2:45p Main Office as Jason Quezada G89.21 Chronic pain due Of 03/18/13 DO, MPH to trauma M54.5 Low back pain Z79.891 [facility] (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 of 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 Z79.891 knot tier (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 of 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 Assessments Date Code Description Provider 12/14/2018 G89.21 Chronic pain due to trauma Quezada, Jason, DO, MPH 12/14/2018 M54.5 Low back pain Quezada, Jason, DO, MPH 12/14/2018 M99.03 Segmental and somatic dysfunction of lumbar Quezada, Jason, DO, MPH [facility] 12/14/2018 Z79.891 [facility] (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 of 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 Quezada, Jason , DO, MPH 12/14/2018 Z79.891 [facility] (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 of 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 Quezada, Jason , DO, MPH 11/14/2018 G89.21 Chronic pain due to trauma Quezada, Jason, DO, MPH 11/14/2018 M54.5 Low back pain Quezada, Jason, DO, MPH 11/14/2018 Z79.891 knot tier (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 of 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 Quezada, Jason , DO, MPH 11/14/2018 Z79.891 [facility] (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 of 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 Quezada, Jason , DO, MPH 10/14/2018 G89.21 Chronic pain due to trauma Quezada, Jason, DO, MPH 10/14/2018 M54.5 Low back pain Quezada, Jason, DO, MPH 10/14/2018 Z79.891 [facility] (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 of 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 Quezada, Jason , DO, MPH 10/14/2018 Z79.891 [facility] (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 of 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 Quezada, Jason , DO, MPH 09/13/2018 G89.21 Chronic pain due to trauma Quezada, Jason, DO, MPH 09/13/2018 M54.5 Low back pain Quezada, Jason, DO, MPH 09/13/2018 M99.03 Segmental and somatic dysfunction of lumbar Quezada, Jason, DO, MPH region 09/13/2018 Z79.891 knot tier (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 of 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 Quezada, Jason , DO, MPH 09/13/2018 Z79.891 [facility] (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 of 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 Quezada, Jason , DO, MPH 08/12/2018 G89.21 Chronic pain due to trauma Jason Quezada DO MPH 08/12/2018 M54.5 Low back pain Jason Quezada DO MPH 08/12/2018 Z79.891 knot tier (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 of 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 Jason Quezada DO MPH 08/12/2018 Z79.891 [facility] (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 of 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 Jason Quezada DO, MPH 07/14/2018 G89.21 Chronic pain due to trauma Jason Quezada DO MPH 07/14/2018 M54.5 Low back pain Jason Quezada DO, MPH 07/14/2018 Z79.891 [facility] (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 of 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 Jason Quezada DO MPH 07/14/2018 Z79.891 [facility] (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 of 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 Jason Quezada DO, MPH Plan of Treatment Future Appointment(s):02/06/2019 9:45 am - Jason Quezada DO MPH at Main Office as Of 03/18/1410 4:00 pm - Jason Quezada DO MPH at Main Office as Of 03/18/1410 2:15 pm - Jason Quezada DO MPH at Main Office as Of 03/18 - Jason Quezada DO, MPHG89.21 Chronic pain due to traumaComments: Chronic. Symptoms and complaints discussed and reviewed today. No significant changes in physical findings. Continue current medical pain management.M54.5 Low back painComments:Chronic. Symptoms and complaints discussed and reviewed today.No changes in physical findings. Patient is stable and comfortable when current medical therapy is rendered.M99.03 Segmental and somatic dysfunction of lumbar regionComments:Chronic. Symptoms and complaints discussed and reviewed today. Lumbar somatic dysfunctions noted warranting OMT. Continue current medical pain management and OMT. D5OOjRb. OMT performed after evaluation. HVLA.Z79.891 [facility] (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 of 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New Labs:Urine Drug Screen, Ordered: 12/14/18Comments:Urine drug screen sample taken. Rapid Point of [...] TAPEN, XTSY, ZOLP. A urine drug test ( UDT) using a rapid screen cup was ordered for this patient and collected on site today. Creatinine has been ordered as well for specimen validity, not for kidney function. Urine Drug Testing is a mandatory component of chronic opioid management, as part of the baseline assessment and ongoing re-assessment of opioid therapy. Per [place] [employer], [place] Non- Acute Pain Medical Treatment Guidelines, section F.3.d.i. This [...] is considered standard of care at this clinic.AllComments: Continue current medical pain management; injection therapy, osteopathic [...] while maintaining satisfactory side effect profile andminimizing laborer pullet farm end-organ damage. Importance of regular nutrition throughout the day discussed.Activity as toleratedContinue with PCP Functional Status Description No Information Available Mental Status Description No Information Available Referrals Description No Information Available
--- OUTSIDE RECORDS SUMMARY | 2019-02-04 13:43 | XMS REPORT | Summary of Care ---
:1950 Author Organization [facility] Address [address] [address] Care Team Providers Name Role Phone Ghulam Castellon Primary Care Provider Reason for Referral Refer to Department Only (Routine) Status Reason Specialty Diagnoses / Procedures Referred By Referred To Contact Contact Pending Review Diagnoses Primary osteoarthritis of one knee, left Ghulam Castellon MD [address] [place] [address] Chu Reason for Visit Reason Comments Eye Problem below eye R eye, thinks she got bite Medication Check Flexril, and Fiorcet. Pharmacy is now saying they need prior auth. Knee Pain surgery March 13 Encounter Details Date Type Department Care Team Description 12/14/2018 Office Visit [place] [facility] Ghulam Castellon Primary osteoarthritis of one knee, left (Primary Dx); Thee Sherman MD Insurance coverage problems [address] [place] [address] [place] [address] [phone] Allergies Active Allergy Reactions Severity Noted Date Comments Bee Sting 05/04/2007 Calan Sr Cardiac Reaction 01/18/2009 Sumatriptan Succinate 05/04/2007 Pregabalin Swelling 12/05/2010 ankles Procaine 05/04/2007 Oxycodone Hcl Other 05/04/2007 Patient reports swelling of lower extremities after custodial use. Prednisone GI Reaction 09/12/2007 Sudafed Pe Maximum 05/04/2007 Sulfa Antibiotics GI Reaction 08/05/2012 Severe nausea Talwin Anaphylaxis High 01/02/2015 Tizanidine Hcl GI Reaction 08/05/2012 Severe nausea documented as of this encounter (statuses as of 12/14/2018) Medications Medication Sig Dispensed Refills Start Date End Date Status Prasterone (DHEA) (DHEA) Take 1 Tab by 0 Active 50 MG Oral Tab mouth TWICE DAILY. L-Lysine 500 MG Oral Tab Take 1 Tab by 0 Active mouth NEEDED Agqpslv-Vtisgrcvcopqi-Pj Take 2 Tabs by 0 Active ffeine [...] as of this encounter (statuses as of 12/14/2018) Active Problems Problem Noted Date Primary osteoarthritis of left knee 11/29/2018 BMI 40.0-44.9, adult 09/30/2018 Morbid obesity due to excess calories 09/20/2018 Patellar pain, left 08/09/2018 Pelvic pain 07/19/2018 Overview: Added automatically from request for surgery [id number] Gross hematuria 07/12/2018 Essential hypertension 06/03/2018 PMB (postmenopausal bleeding) 03/01/2018 Overview: Added automatically from request for surgery [id number] LASHA (stress urinary incontinence, female) 03/01/2018 Overview: Added automatically from request for surgery [id number] Family history of coronary artery disease 12/10/2017 Overview: Mom and brother had myocardial infarctions and stents Irritable bowel syndrome with both constipation and diarrhea 11/02/2017 Chronic abdominal pain 05/20/2017 Gallstones 09/21/2016 Gallbladder sludge 08/27/2016 Overview: Added automatically from request for surgery [id number] Acute iritis of left eye 06/17/2016 Pseudophakia [...] reflux disease) 05/04/2007 Overview: GI MD Dr Wilson [facility] esophago-gastroduodenoscopy 2009 documented as of this encounter (statuses as of 12/14/2018) Resolved Problems Problem Noted Date Resolved Date Foot pain, left 08/09/2018 12/14/2018 Sleep apnea 01/27/2017 09/24/2017 Overview: Noted By Ivonne Owens NP 03/20/16 Recurrent cold sores 01/02/2015 09/24/2017 Extreme obesity 01/02/2015 09/24/2017 Wrist fracture, left 12/05/2010 01/02/2015 Other and combined forms of senile cataract 03/27/2008 03/19/2017 High cholesterol 09/24/2017 documented as of this encounter (statuses as of 12/14/2018) Immunizations Name Administration Dates Next Due Depo [...] Sign Reading Time Taken Comments Blood Pressure 108/50 12/14/2018 1:51 PM EDT Pulse 58 12/14/2018 1:51 PM EDT Temperature 37.2 12/14/2018 1:51 PM EDT C (99 F) Respiratory Rate - - Oxygen Saturation 96% 12/14/2018 1:51 PM EDT Inhaled Oxygen Concentration - - Weight 104.8 kg (231 lb) 12/14/2018 1:51 PM EDT Height 157.5 cm (5' 2") 12/14/2018 1:51 PM EDT Body Mass Index 42.25 12/14/2018 1:51 PM EDT documented in this encounter Patient Instructions Patient InstructionsGhulam Castellon MD - 12/14/2018 1:[address] Allyson Chu orthopedic surgery at [facility] about the knee osteoarthritis call [phone] Call [employer] service # or go their website to ask what they will cover as alternatives to fioricet and flexeril documented in this encounter Progress Notes Ghulam Castellon MD - 12/14/2018 1:40 PM EDT PATIENT: Tamiko Donovan : 1950 DATE OF SERVICE: 12/14/2018 CHIEF COMPLAINT: Chief Complaint Patient presents with Eye Problem below eye R eye, thinks she got bite Medication Check Flexril, and Fiorcet. Pharmacy is now saying they need prior auth. Knee Pain surgery March 13 Subjective HISTORY OF PRESENT ILLNESS: Tamiko Donovan is a 68-y.o. female. HPI She asks for second opinion orthopedic surgery other than Dr Melton she had planned on total knee replacement left with him Past Medical History: Diagnosis Date Esophagitis 05/04/2007 [...] family history Current Outpatient Medications Medication Sig Xztmfhz-Snjuokxvbhwud-Dyzzfcyj (EXCEDRIN MIGRAINE) 250-250-65 MG Oral Tab Take 2 Tabs by mouth NEEDED. ktjhpdlexu-wzufyfvgsjhmd-xrxyhujr (FIORICET) 50-325-40 MG Oral Tab Take 2 [...] Patient reports swelling of lower extremities after custodial use. Prednisone GI Reaction Sudafed Pe Maximum [...] file Gets together: Not on file Attends adventist service: Not on file Active member of [...] Concern Yes Social History Narrative Lives in [facility] on disability Single has a boyfriend ROS cannot get fioricet or cyclobenzaprine due to [employer] advantage plan blockages on it Objective PHYSICAL EXAM: VITALS: BP 108/50 (BP Location: Left arm, Patient Position: Sitting) | Pulse 58 | Temp 99 F (37.2 C) (Tympanic) | Ht 5' 2" (1.575 m) | Wt 231 lb ( 104.8 kg) | SpO2 96% | BMI 42.25 kg/m Body mass index is 42.25 kg/m. Physical Exam I spent 15 minutes with the patient, greater than half of this time in direct etwh-yw-dlhn counseling addressing the current condition and plan of care. ASSESSMENT / IMPRESSION: ICD-9-CM ICD-10-CM 1. Primary osteoarthritis of one knee, left 715.16 M17.12 REFER TO ORTHOPEDICS 2. Insurance coverage problems V60.89 Z59.8 Patient Instructions Second opinion Dr Allyson Chu orthopedic surgery at [facility] about the knee osteoarthritis call [phone] Call [employer] customer service # or go their website to ask what they will cover as alternatives to fioricet and flexeril Ghulam Castellon MD 12/14/2018 14:11 documented in this encounter Plan of Treatment Date Type Specialty Care Team Description 01/24/2019 Office Visit Urology Lizzy Capellan CRNP [address] [address] 02/20/2019 Office Visit Internal Medicine Ghulam Castellon MD [address] [place] [address] [phone] 02/24/2019 Office Visit Orthopedics Silvia Saucedo, MOE-C [address] [place] [address] [phone] 02/24/2019 Lab Internal Medicine 03/13/[address] [facility] Rc Melton, IP Reservation [address] [place] [address] [phone] [facility] [address] [place] [address] [phone] 03/28/2019 Office Visit Orthopedics Rc Melton MD [address] [place] [address] [phone] 04/06/2019 IPPR Ophthalmology 04/06/2019 IPPR Ophthalmology 04/06/2019 Ocular Visit Optometry Bhavna Faith, OD [address] [address] Name Type Priority Associated Diagnoses Order Schedule REFER TO ORTHOPEDICS Referral Routine Primary osteoarthritis of Expected: one knee, left 12/14/2018, Expires: 12/15/2019 Health Maintenance Due Date Last Done Comments [...] Progress Blood Pressure Blood Pressure 108/50 No Cande, < 150/90 (12/14/2018 Ghulam Sherman, 1:51 PM [...] is an individualized self-management goal for Tamiko Delgadoman: Please take all prescribed medications as directed. [...] of this encounter Implants Implanted Type Area Infusion Pharmacist Device Shelf Model / Identifier Expiration Serial / Lot Date Iol, [id number] 23.0 Diopter - [id number] Left: Eye STORZ [id number] / Implanted: Qty: 1 on 04/02/2008 at [facility] / [id number] Iol, [id number] 22.5 Diopter - [id number] Right: Eye STORZ [id number] / Implanted: Qty: 1 on 04/16/2008 at [facility] / [id number] Natasha [employer] - [id number] N/A: [place] 01/18/2020 [id number] / Implanted: Qty: 1 on 03/16/2018 by Lazaro Mckenzie MD at [facility] / [id number] documented as of this encounter Results Not on filedocumented in this encounter Visit Diagnoses Diagnosis Primary osteoarthritis of one knee, left - Primary Insurance coverage problems Other specified housing or economic circumstances documented in this encounter Insurance Payer Benefit Plan / Subscriber ID Effective Dates Phone Address Type Group A[employer]NA MEDICARE AETNA MEDICARE xxxxxxxx 2016-Present [employer] ADVANTAGE Guarantor Name Account Type Relation to Date of Phone Billing Address Patient Tamiko Donovan Personal/Famil 1950 [address] (Home) [place], [place] [phone] (Work) documented as of this encounter Advance Directives Type Date Recorded 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
[2019-02-04 14:30] VITALS: BP 122/71
== END 2019-02-04 14:15 | disposition home or self-care (01) ==
LOC: ED 12:52
DX: R04.0 Epistaxis (principal); E78.00 Pure hypercholesterolemia, unspecified; Z88.2 Allergy status to sulfonamides
CPT/HCPCS: 99281; A9270-GY

== ENCOUNTER 2019-03-14 11:49 | Observation (INO) | payer MEDICARE, OTHER ==
--- NOTE | 2019-02-28 13:44 | HP ---
HISTORY AND PHYSICAL: DATE OF ADMISSION/SURGERY: 03/14/19 DATE OF OFFICE VISIT: 02/27/19 SURGEON: Allyson Chu MD * (DICTATED BY NICHOLAS JACINTO) PROCEDURE: Left total knee arthroplasty. CHIEF COMPLAINT: Left knee pain. HISTORY OF PRESENT ILLNESS: Ms. Donovan is a 68-year-old female with end-stage osteoarthritis of the left knee. She has failed conservative treatment and elected to proceed with a left total knee arthroplasty. PAST MEDICAL HISTORY: 1. Fibromyalgia. 2. GERD. 3. Ankylosing spondylitis. 4. RSD. 5. Seizure disorder. 6. High cholesterol. PAST SURGICAL HISTORY: 1. Tonsillectomy. 2. Ulnar shortening. 3. Septoplasty. 4. Bronchoscopy. 5. Cyst removal from her ear. 6. Tendon release bilateral elbows. 7. Hernia repair. 8. Carpal tunnel release. 9. Tubal ligation. 10. Cholecystectomy. 11. Bladder sling. CURRENT MEDICATIONS: 1. Meloxicam 15 mg a day. 2. Cyclobenzaprine 10 mg a day. 3. Morphine sulfate 15 mg half a tab every 12 hours as needed. 4. Propranolol 120 mg 1 tab 2 times a day. 5. Irbesartan 150 mg daily. 6. Protonix 40 mg a day. 7. Excedrin for migraines. 8. Loratadine 10 mg a day. 9. Meclizine 25 mg as needed. 10. Simvastatin 20 mg a day. 11. Osteo Bi-Flex. 12. Flax seed oil. 13. L-Lysine. 14. Biotin. 15. DHEA. 16. Stool softener. 17. Probiotic. 18. Polyethylene glycol. 19. Fluticasone nasal spray emergency. ALLERGIES: NOVOCAINE, OXYCONTIN, LYRICA, SULFA, PREDNISONE, TALWIN, and CECLOR. FAMILY HISTORY: Coronary artery disease, stroke, and she has a niece who had malignant hyperthermia. SOCIAL HISTORY: She is a 68-year-old female. She lives alone. She does not smoke. She uses marijuana. Uses alcohol rarely. REVIEW OF SYSTEMS: A complete 14-point review of systems was reviewed with the patient, it was positive for GERD and seizures. She denies a history of DVT, PE , hepatitis, HIV, or anesthesia problems. PHYSICAL EXAMINATION GENERAL: She is well developed, well nourished, in no acute distress. VITAL SIGNS: She stands 62 inches tall, weighs 235 pounds. Blood pressure is 138/90 and her heart rate is 67. HEENT: Normocephalic, atraumatic. NECK: Supple. No palpable lymph nodes. PULMONARY: The lungs are clear to auscultation bilaterally. CARDIO: Regular rate and rhythm. Strong S1, S2. ABDOMEN: Soft, nontender, nondistended. MUSCULOSKELETAL: Left lower extremity: The skin is intact. There are no open wounds or abrasions. There is a moderate effusion of the left knee joint. She has some tenderness along the medial and lateral joint line. Range of motion is 10 to 120 degrees of flexion with patellofemoral crepitus. She is able to dorsiflex and plantar flex. She has a 2+ dorsalis pedis pulse and intact sensation. NEUROLOGICAL: She is alert and oriented x3. ASSESSMENT AND PLAN: Ms. Donovan is a 68-year-old female with end-stage osteoarthritis of the left knee. She has failed conservative treatment and elected to proceed with a left total knee arthroplasty. The surgery is scheduled for 03/14/[address] Chu discussed the risks and benefits of the surgery at today's visit and all of her questions were answered. She will follow up with Dr. Chu 2 weeks after the surgery. NICHOLAS JACINTO [id number]/[facility] #: [id number] MTDJosé Miguel
[~2019-03-14 11:49] MED LIST: Acetaminophen TAB* 325 MG PO ONE; Buffered Lidocaine 1% SYRIN* 1 ML/SYRINGE INTRADERM ONE; Famotidine IV* 10 MG/ML 2 ML (20 mg) IV ONE; Lactated Ringers 1000 ML Bag* 1,000 ML IV SCH
[2019-03-14] MEDS ORDERED: Lidocaine 2% PF * 5 ML VIAL ONE (12:21)
[2019-03-14] MEDS ORDERED: Propofol* 10 MG/ML 20 ML BTL ONE ×3 (12:21→16:12)
[2019-03-14] MEDS ORDERED: Ondansetron INJ* 2 MG/ML VIAL ONE (12:21)
[2019-03-14] MEDS ORDERED: fentaNYL* 50 MCG/ML 2 ML VIAL (100 MCG VIAL) ONE (12:21)
[2019-03-14] MEDS ORDERED: Dexamethasone IV* 4 MG/ML 1 ML (4 MG) ONE (12:21)
[2019-03-14] MEDS ORDERED: KETAMINE HCL* 50 MG/ML 10 ML VIAL ONE (12:22)
[2019-03-14] MEDS ORDERED: Midazolam* 1 MG/ML 10 ML VIAL (10 MG) ONE (12:22)
[2019-03-14] MEDS ORDERED: Acetaminophen TAB* 325 MG ONE (12:23)
[2019-03-14] MEDS ORDERED: Famotidine IV* 10 MG/ML 2 ML (20 mg) ONE (12:24)
[2019-03-14] MEDS ORDERED: ceFAZolin 2 GM PREMIX in ORs 2 GM/50 ML BAG ONE (12:24)
[2019-03-14] MEDS ORDERED: ROPIVACAINE 5 MG/ML 30 ML BTL (0.5%) ONE ×2 (13:27→14:34)
[2019-03-14] MEDS ORDERED: Bupivacaine 0.5% SDV PF* 30ML VIAL ONE (14:28)
[2019-03-14] MEDS ORDERED: diPHENhydraMINE PO* 25 MG PO PRN (14:36)
[2019-03-14] MEDS ORDERED: Polyethylene Glycol 3350* 17 GM PACKET PO PRN (14:36)
[2019-03-14] MEDS ORDERED: Ondansetron ODT TAB* 4 MG PO PRN (14:36)
[2019-03-14] MEDS ORDERED: diPHENhydraMINE IV* 50 MG/ML 1 ml VIAL (BENADRYL) IV PRN (14:36)
[2019-03-14] MEDS ORDERED: Cyclobenzaprine TAB* 10 MG PO PRN (14:36)
[2019-03-14] MEDS ORDERED: Ondansetron INJ* 2 MG/ML VIAL IV PRN (14:36)
[2019-03-14] MEDS ORDERED: Scopolamine 1.5 mg* PATCH ONE (14:58)
[2019-03-14] MEDS ORDERED: fentaNYL* 50 MCG/ML 2 ML VIAL (100 MCG VIAL) IV PRN (15:37)
[2019-03-14] MEDS ORDERED: Naloxone* 0.4 MG/ML 1 ML VIAL IV PRN (15:37)
[2019-03-14] MEDS ORDERED: HYDROmorphone INJ1* 1 MG/ML SYRINGE IV PRN (15:37)
[2019-03-14] MEDS ORDERED: EPHEDrine (Pressors)* 50 MG/ML VIAL ONE (15:49)
[2019-03-14] MEDS ORDERED: Ketorolac INJ* 30 MG/ML 1 ML VIAL ONE (16:20)
--- NOTE | 2019-03-14 17:08 | OP ---
Operative Report - Blank - Operative Report Date of Operation: 03/14/19 Note: JACK MONTEIRO 1950 Date of Surgery: 03/14/19 Allyson Chu MD Financial Reporting Accountant: Ivonne PETERSON did help throughout the procedure with preparation of the knee, wound retraction, manipulation of the knee, and wound closure. Anesthesiologist: Anjel Flores MD Anesthesia Type: Spinal Preoperative Diagnosis: Left severe degenerative osteoarthritis of the knee Postoperative Diagnosis: As above Procedure Performed: Left Total Knee Arthroplasty Tourniquet time: 46 minutes Complications: None Specimen: Bone and cartilage from the left knee joint sent to pathology. Hardware Used: Cemented Dougherty and Nephew total knee hardware was used - For the femur a size 4 narrow left legion posterior stabilized femoral component, for the tibia a size 3 left lay II tibial baseplate, for the insert a size 11mm 3-4 posterior stabilized articular polyethylene insert, and for the patella a size 32 3-peg all poly patella. Brief History/Indication: JACK MONTEIRO was known in clinic and had a history of severe left knee pain and swelling. She failed conservative treatment with anti-inflammatories, pain pills, intra-articular injections and physical therapy. She elected to undergo left total knee arthroplasty due to continued pain and decreased quality of life. Radiographs showed severe end stage osteoarthritis of the knee with bone on bone contact. Informed consent was obtained from the patient. She understood the risks of surgery included but were not limited to: bleeding, infection, damage to nearby structures, intraoperative fracture, nerve palsy, failure of the hardware, early loosening, knee stiffness or loss of motion, anesthesia complications, stroke, heart attack , blood clot and . She wished to proceed. Intra-Operative Findings: Intraoperatively the patient was noted to have severe loss of cartilage in all 3 compartments of the knee. Description of the Procedure: JACK MONTEIRO was identified in the preanesthesia unit. Her left knee was marked as the correct operative side. Informed consent was signed and placed in the chart. The patient was taken to the operating room and placed under anesthesia without complication. A gunderson catheter was placed. A tourniquet was placed on the left thigh. The left lower extremity was prepped and draped in the usual sterile fashion. Preoperative time-out was made to correctly identify the patient, side and site. Appropriate intraoperative antibiotics were given within one hour of incision. Tourniquet was inflated. A midline incision was made and carried sharply down to the extensor mechanism. A new 10 blade was used to make a standard medial parapatellar arthrotomy. The patella was subluxed laterally. Electrocautery was used to dissect soft tissue off the superomedial tibia to the midsagittal plane. The knee was flexed up. The anterior horn of the lateral meniscus and the ACL were sharply incised. A drill was used to enter the distal femur. The intramedullary distal femoral cutting guide was pinned on the distal femur. The oscillating saw was used to make the distal femoral cut. The external rotation guide was pinned on the distal femur and the distal femur was sized to a size 4. The size 4 multi-cutting jig was pinned on the distal femur. The oscillating saw was used to make the appropriate 4 chamfer cuts. Next the PCL was completely released. The extramedullary tibial cutting guide was pinned on the proximal tibia and the oscillating saw was used to make the proximal tibial cut perpendicular to the mechanical axis of the tibia. The bone was carefully removed. The knee was brought out into full extension. The spacer block was placed and had excellent fit with the knee in full extension. The medial and lateral ligaments were well balanced. The flexion and extension gaps were well balanced. The knee was flexed up. Lamina valve setter was placed both medially and laterally. Any remaining meniscus was removed with electrocautery. Curved osteotome was used to remove any posterior osteophytes. The tibial tray and drop christopher were placed and confirmed a satisfactory tibial cut. The size 4 left femoral trial was impacted onto the distal femur. This trial had excellent fit and stability. The box for the posterior stabilized implant was prepared using a box cut osteotome and a reamer. Next a tibial tray trial and 9 mm insert trial was placed. The knee was taken through a range of motion and had full extension to 130 degrees of flexion. Patellofemoral tracking was satisfactory. The patella was inverted and sized to a size 32. Three peg holes were drilled through the size 32 drill guide. The trial patella was placed and the knee was taken through a range of motion. There was satisfactory patellofemoral tracking. All trials were removed. The tibia was subluxed anteriorly and sized to a size 3. The proximal tibial was prepared with a size 3 keel punch. All bony cut surfaces were irrigated with sterile saline and dried. Final implants were cemented into place starting with the tibia, followed by the femur, and last the patella. A 11 mm insert trial was placed and the knee was brought into full extension. Tourniquet was turned down and the knee was copiously irrigated with sterile saline. Electrocautery was used to obtain meticulous hemostasis. Once the cement had fully cured, the insert trial was removed. Any excess cement was removed from around the hardware and capsule. Final insert chosen was a 11 mm posterior stabilized Lay II articular insert size 3-4. Stability of the insert was checked and noted to be stable. The extensor mechanism was closed using number 1 vicryls. The rest of the incision was closed in a layered fashion using 0 and 2-0 vicryls. The skin was closed using 3-0 nylon suture. Sterile xeroform, 4x4s and webril were used to cover the incision. Yogi wrap and cold pack were used to cover the dressings. The patients anesthesia was reversed without difficulty. She was taken to the PACU in stable condition. Intended weight-bearing will be as tolerated.
[2019-03-14] MEDS ORDERED: Pantoprazole TAB * 40 MG TAB PO SCH (18:00)
[2019-03-14] MEDS: Lactated Ringers 1000 ML Bag* 1,000 ML IV SCH (18:46)
[2019-03-14] MEDS ORDERED: Losartan TAB* 25 MG PO SCH (20:00)
[2019-03-14] MEDS ORDERED: Atorvastatin* 10 MG TAB PO SCH (21:00)
[2019-03-14] MEDS: Acetaminophen TAB* 325 MG PO SCH (21:16)
[2019-03-14] MEDS: Docusate CAP* 100 MG PO SCH (21:17)
[2019-03-14] MEDS: CMCS: Cyclosporine 0.05% OPHTH (NF) 0.4 ML VIAL BOTH EYES SCH (21:17)
[2019-03-14] MEDS: Propranolol TAB* 60 MG PO SCH (21:18)
[2019-03-14] MEDS ORDERED: NS 0.9% 50 ML* 50 ML ONE (22:23)
[2019-03-14] MEDS: oxyCODONE TAB* 5 MG TAB PO PRN (22:26)
[2019-03-14] MEDS: Morphine INJ* 2 MG/ML 1 ML SYRINGE (TWO MG - NEW SYRINGE VERSION) IV PRN (22:33)
[2019-03-14] MEDS: ceFAZolin 1 GM ADVAN(*) 1 GM in NS 0.9% 50 ML* 50 ML IVPB SCH (22:38)
[2019-03-15] MEDS: oxyCODONE/Acetamin 5/325 MG* TAB PO PRN ×4 (01:21→15:43)
[2019-03-15] MEDS: Morphine INJ* 2 MG/ML 1 ML SYRINGE (TWO MG - NEW SYRINGE VERSION) IV PRN (02:32)
[2019-03-15] MEDS: oxyCODONE TAB* 5 MG TAB PO PRN ×3 (03:32→13:38)
[2019-03-15] MEDS: Lactated Ringers 1000 ML Bag* 1,000 ML IV SCH (06:34)
[2019-03-15] MEDS: ceFAZolin 1 GM ADVAN(*) 1 GM in NS 0.9% 50 ML* 50 ML IVPB SCH ×2 (06:37→14:37)
[2019-03-15] MEDS: Acetaminophen TAB* 325 MG PO SCH ×2 (06:45→12:41)
[2019-03-15 08:47] LABS: Hematocrit 34 % (35-47); Hemoglobin 11.9 g/dL (12.0-16.0); Mean Platelet Volume 9.5 fL (7.4-10.4); Platelet Count 202 10^3/uL (150-450)
[2019-03-15] MEDS: CMCS: Cyclosporine 0.05% OPHTH (NF) 0.4 ML VIAL BOTH EYES SCH (08:54)
[2019-03-15] MEDS: Docusate CAP* 100 MG PO SCH (08:55)
[2019-03-15] MEDS ORDERED: Vitamin THERAPEUTIC TAB PO SCH (09:00)
[2019-03-15] MEDS ORDERED: Morphine TAB Extended Release (*) 30 MG TAB.ER PO SCH ×2 (09:00)
[2019-03-15] MEDS ORDERED: Morphine TAB Extended Release (*) 15 MG TAB.ER PO SCH (09:00)
[2019-03-15] MEDS ORDERED: Apixaban* 2.5 MG TAB PO SCH (09:00)
[2019-03-15 09:06] LABS: BUN/Creatinine Ratio 23.8 (8-20); Calcium 9.1 mg/dL (8.6-10.3); EGFR African American 81.3 (>60); EGFR Non-African American 67.2 (>60); Potassium 3.9 mmol/L (3.5-5.0)
--- NOTE | 2019-03-15 09:55 | PN ---
Progress Note - Progress Note Date of Service: 03/15/19 SOAP: Subjective: []Pt seen and examined at bedside. She feels well without CP, SOB, dizziness, lightheadedness or nausea. Takes propanolol for migraine. Knee pain well controlled, calf pain is her primary complaint. Objective: []Gen: NAD LLE: Left knee dressing CDI, thigh soft, DF/PF intact, DP2+, sensation intact to light touch distally Calves supple without erythema, edema or palpable cords. Left calf is tender Assessment: []left total knee replacement Plan: []WBAT PT/OT Calf pain: dopplar ordered Hospitalist consulted for med comgmt eliquis 2.5 mg po BID Vital Signs Temp 98.4 F 03/15/19 08:20 Pulse 59 03/15/19 08:20 Resp 18 03/15/19 09:31 BP 124/67 03/15/19 08:20 Pulse Ox 96 03/15/19 08:20 Intake & Output 03/14/19 03/15/19 03/15/19 18:59 06:59 18:59 Intake Total 1900 1150 270 Output Total 550 Balance 1900 600 270 Weight 231 lb Intake: IV Fluids 1900 50 215 LR 1900 215 cefazolin 50 IVPB 55 cefazolin 55 Oral 1100 Output: Urine 250 Rodriguez 300 Laboratory Last Values Hgb 11.9 g/dL (12.0-16.0) L 03/15/19 08:28 Hct 34 % (35-47) L 03/15/19 08:28 Plt Count 202 10^3/uL (150-450) 03/15/19 08:28 MPV 9.5 fL (7.4-10.4) 03/15/19 08:28 Sodium 136 mmol/L (135-145) 03/15/19 08:28 Potassium 3.9 mmol/L (3.5-5.0) 03/15/19 08:28 Chloride 104 mmol/L (101-111) 03/15/19 08:28 Carbon Dioxide 24 mmol/L (22-32) 03/15/19 08:28 Anion Gap 8 mmol/L (2-11) 03/15/19 08:28 BUN 20 mg/dL (6-24) 03/15/19 08:28 Creatinine 0.84 mg/dL (0.51-0.95) 03/15/19 08:28 Est GFR ( Amer) 81.3 (>60) 03/15/19 08:28 Est GFR (Non-Af Amer) 67.2 (>60) 03/15/19 08:28 BUN/Creatinine Ratio 23.8 (8-20) H 03/15/19 08:28 Glucose 130 mg/dL (70-100) H 03/15/19 08:28 Calcium 9.1 mg/dL (8.6-10.3) 03/15/19 08:28 Blood Type O Negative 03/14/19 12:34 Antibody Screen Negative 03/14/19 12:34
[2019-03-15] MEDS: Propranolol TAB* 60 MG PO SCH (10:27)
[2019-03-15 11:40] VITALS: BP 114/71
--- NOTE | 2019-03-15 13:21 | CONS ---
HOSPITAL MEDICINE CONSULTATION REPORT: DATE OF CONSULT: 03/15/19 PROVIDER: Maryann Caldwell NP. ATTENDING PHYSICIAN: Dr. Allyson Chu. CONSULTING PHYSICIAN: Dr. Emmanuel Casas (dictated by Maryann Caldwell NP). REASON FOR CONSULT: Co-management of chronic medical conditions. HISTORY OF PRESENT ILLNESS: Ms. Donovan is a 68-year-old female with past medical history significant for fibromyalgia, GERD, RSD, seizure disorder, high cholesterol, who presented to [facility] for an elective left total knee arthroplasty with Dr. Chu. Please see dictated H and P from [place] for complete details. In brief, the patient had ongoing pain, failed conservative measures, therefore opted to have an elective left total knee arthroplasty with Dr. Chu. In the immediate postoperative period, the patient has no complaints. The patient denies any recent chest pain or shortness of breath. Denies any recent fever, chills, nausea, vomiting, or diarrhea. Denies any abdominal pain. Denies any cough, hemoptysis, or shortness of breath. No hematuria or dysuria. Denies any weakness on one side, dysphagia, arthralgias, myalgias, rashes, lesions, open sores, psychosis, or anxiety. Due to the patient's chronic medical history, Hospital Medicine was asked to see and evaluate the patient to help co-manage her care during this hospitalization. PAST MEDICAL HISTORY: Significant for: 1. Fibromyalgia. 2. GERD. 3. Ankylosing spondylitis. 4. RSD. 5. Seizure disorder - no seizure since the age of 11. 6. High cholesterol. PAST SURGICAL HISTORY: 1. Tonsillectomy. 2. Ulnar shortening. 3. Septoplasty. 4. Bronchoscopy. 5. Cyst removed from her ear. 6. Tendon release bilateral elbows. 7. Hernia repair. 8. Carpal tunnel release. 9. Tubal ligation. 10. Cholecystectomy. 11. Bladder sling. 12. Laparoscopic cyst removal from her abdomen. 13. LEEP procedure. 14. Laparoscopic procedure for removal of abdominal adhesions CURRENT MEDICATIONS: 1. Meloxicam 15 mg p.o. daily. 2. Cyclobenzaprine 10 mg a day, uses rarely. 3. Morphine 7.5 mg daily, stopped taking 1 week ago. 4. Propranolol 120 mg 1 tablet twice daily for migraines. 5. Irbesartan 150 mg p.o. daily. 6. Protonix 40 mg p.o. daily. 7. Excedrin Migraine as needed for headaches. 8. Loratadine 10 mg p.o. daily. 9. Meclizine 25 mg as needed. 10. Simvastatin 20 mg p.o. daily. 11. Osteo Bi-Flex twice daily. 12. Flax seed oil 1 tablet p.o. daily. 13. Lysine 1 tablet p.o. daily. 14. Biotin 2 tablets daily. 15. DHEA 1 tablet twice daily. 16. Stool softener, uses rarely. 17. Probiotic 1 tablet p.o. daily. 18. MiraLAX as needed for constipation. 19. Fluticasone nasal spray as needed for nasal congestion. ALLERGIES: NOVOCAINE, OXYCONTIN, LYRICA, SULFA, PREDNISONE, TALWIN, and CECLOR. FAMILY HISTORY: Mother and sister both with pacemakers. Brother with an MO in his 70s and stroke. Brother and sister both with diabetes and brother with prostate cancer. SOCIAL HISTORY: The patient denies any tobacco. Uses alcohol rarely. She does report marijuana use. She lives alone. Surrogate decision maker in the event she is unable to make her own decisions is her son. She is a full code. REVIEW OF SYSTEMS: A 14-point review of systems was completed and all pertinent positives are mentioned in the HPI. PHYSICAL EXAM: General: At this time, Ms. Donovan is a 68-year-old female, she is alert and oriented, resting in her hospital bed. She is in no acute distress. Vital signs: Blood pressure 114/71, heart rate 54, respirations are 17, O2 saturation 96%, temperature is 98.7. HEENT: Head is atraumatic, normocephalic. Eyes: EOMs are intact. Sclerae anicteric and not pale. Oral mucosa is moist. Neck is supple. Lungs are clear to auscultation bilaterally. No wheezes, rales, or rhonchi. Cardiac: S1, S2. Regular rate and rhythm. No murmurs, rubs, or gallops. Abdomen is soft and nontender, nondistended. Extremities: The patient is able to move all 4 extremities. There is no clubbing or cyanosis. Pedal pulses are +2 bilaterally. She does have swelling noted to her left knee and sutures intact to left knee with a small amount of bloody drainage. Neurologic: She is awake, alert, oriented x3. Speech is clear. Thought process intact. Skin: She does have sutures intact to her left knee. No surrounding erythema. Mild ecchymosis and swelling noted. IMPRESSION AND PLAN: Ms. Donovan is a 68-year-old female with past medical history significant for fibromyalgia, gastroesophageal reflux disease, ankylosing spondylitis, reflex sympathetic dystrophy, seizure disorder, and high cholesterol, who presented to [facility] for elective left total knee arthroplasty. Our recommendations are as follows: 1. Status post left total knee arthroplasty. Management per Orthopedics, PT and OT per Orthopedics, bowel regimen per Orthopedics, pain management per Orthopedics, and DVT prophylaxis per Orthopedics. 2. Fibromyalgia. The patient should continue on home medications as previously prescribed. 3. Gastroesophageal reflux disease. She should continue on Protonix 40 mg p.o. daily. 4. Migraines. The patient should continue on propranolol 120 mg p.o. b.i.d. 5. Hypertension. She should continue on irbesartan 150 mg p.o. daily, hold for systolic blood pressure less than 110. 6. Hyperlipidemia. She should continue on simvastatin 20 mg p.o. daily. 7. FEN: She can have a regular diet. 8. Code status: She is a full code. 6. DVT prophylaxis: We will continue with Eliquis as prescribed by Orthopedics. TIME SPENT: Time spent on this consultation was 45 minutes, greater than half that time was spent at the bedside reviewing the events leading thus far to her hospitalization, performing physical exam, and reviewing my plan of care. I have discussed this with my attending Dr. Emmanuel Casas; he is in agreement with my plan. MARYANN CALDWELL, E [employer]EL[employer] [id number]/[facility] #: [id number] FRANCES
--- NOTE | 2019-03-15 14:02 | DS ---
Orthopedic Discharge Summary - Discharge Summary Date of Admission:03/14/19 Date of Discharge: 03/15/19 Date of Surgery: 03/14/19 Attending Orthopedic Provider: Dr Chu Pre-operative Diagnosis: Left knee osteoarthritis Operative Procedure: left total knee replacement Disposition of Patient: home Condition of Patient: stable History: JACK MONTEIRO is a 68 year old F with years of increasingly severe left knee pain. Patient has failed conservative management and has elected to undergo a left total knee replacement Hospital Course: JACK was admitted to [facility] on 03/14/19. Patient underwent a left total knee replacement without complication followed by a brief recovery in PACU and transfer to the Short Stay Surgical Unit in stable condition. Our hospitalist service, physical therapy also participated in this patients care. Post-op day 1: patient was alert and in no acute distress. Dressing was clean, dry and intact. Operative extremity dorsiflexion and plantarflexion intact, sensation intact to light touch distally, DP2+. Prior to discharge: dressing was changed, incision was clean, dry and intact. Patient was deemed to be medically and orthopedically stable for discharge. Physical therapy goals were met. Home Medications Medication Instructions Recorded Confirmed Type Butalbital/Aspirin/Caffeine 2 cap PO Q4HR PRN 08/05/16 03/14/19 History [id number]-[id number] Cap Cyclosporine 0.05% OPHTH (NF) 1 drop BOTH EYES BID 08/05/16 03/14/19 History [Restasis 0.05% OPHTH] Lysine HCl [l-Lysine] 500 mg PO QPM 08/05/16 03/14/19 History Meloxicam(NF) [Mobic(NF)] 15 mg PO QAM 08/05/16 03/14/19 History Morphine TAB Extended Rel(*) [Ms 7.5 mg PO QAM 08/05/16 03/14/19 History Contin(*)] Pantoprazole TAB * [Protonix TAB*] 40 mg PO QPM 08/05/16 03/14/19 History Propranolol TAB* [Inderal TAB*] 120 mg PO BID 08/05/16 03/14/19 History Simvastatin TAB(NF) [Zocor 20 MG 20 mg PO BEDTIME 08/05/16 03/14/19 History (NF)] Irbesartan 150 mg PO QPM 05/29/18 03/14/19 History Prasterone (Dhea) [Dhea] 1 tab PO BID 05/29/18 03/14/19 History Aspirin/Acetaminophen/Caffeine 1 - 2 each PO Q6H PRN 02/27/19 03/14/19 History [Excedrin Migraine Caplet] Biotin 10,000 mcg PO QAM 02/27/19 03/14/19 History Flaxseed Oil 1,000 mg PO QPM 02/27/19 03/14/19 History Fluticasone NASAL SPRAY 50MCG* 2 spray BOTH NARES QAM 02/27/19 03/14/19 History [Flonase NASAL SPRAY 50MCG*] Glucosamine/D3/Boswellia Briseyda 1 each PO BID 02/27/19 03/14/19 History [Osteo Bi-Flex Tablet] L.acidoph,Paracasei, B.lactis 1 each PO QPM 02/27/19 03/14/19 History [Probiotic] LoraTADine TAB(NF) [Claritin 10 MG 10 mg PO QAM 02/27/19 03/14/19 History TAB(NF)] Stool Softener 1 cap PO BID PRN 02/27/19 03/14/19 History Acetaminophen TAB* [Tylenol TAB*] 975 mg PO Q8HR tab 03/15/19 Rx Apixaban* [Eliquis*] 2.5 mg PO BID #60 tab 03/15/19 Rx Docusate CAP* [Colace Cap*] 100 mg PO BID #60 cap 03/15/19 Rx oxyCODONE/Acetamin 5/325 MG* 2 tab PO Q4H PRN #60 tab MDD 10 03/15/19 Rx [Percocet 5/325 TAB*] Discharge Instructions following Orthopedic Surgery: Activity: * Weight Bearing as tolerated * Continue physical therapy and occupational therapy exercises as shown * Home PT Wound care: * OK to shower on post-op day 3, no bathing, swimming, or submerging wound. * Use gentle soap, pat dry. Cover with gauze, TEO wrap or tape. * Visiting home nurse to do wound checks. Call Orthopedic office for: * Increased drainage * Redness * Increased pain * Fever Go to ER with shortness of breath or chest pain. Diet: * Regular diet * Increase fluids and fiber to prevent constipation. * Continue to use stool softeners, call office if no bowel motion within 48 hours. Medications See Home Medication List in your packet for medications that you should take after discharge. DVT Prophylaxis: Increases bleeding tendency Eliquis Dosin.5 mg, 1 tab every 12 hours x 30 days Pain Control: Percocet Dosin/325 mg 1-2 tabs by mouth every 4-6 hours as needed for pain. Maximum of 10 tabs per day. HOld for sedation and wean off as soon as pain allows Please note that Percocet contains Tylenol (acetaminophen). Maximum daily dose of Tylenol is 4000 mg from all sources. Hold your Irebesartan today 03/15. Can resume tomorrow 03/16 Antibiotics are required prior to any dental work. FOLLOW UP: Follow up with [Vlad ] Within 10-14 days, call for appointment Please call our office with any questions or concerns ([phone]) [facility]
[2019-03-17] MEDS ORDERED: Scopolamine PATCH Remove* 1 NOTE MISC PATCH OFF ONE (15:39)
== END 2019-03-15 15:39 | disposition home or self-care (01) ==
LOC: OR 11:49 → SSU 14:36
PROVIDERS: ADMIT Orthopaedic Surgery Adult Reconstructive Orthopaedic Surgery; ATTEND Orthopaedic Surgery Adult Reconstructive Orthopaedic Surgery
DX: M17.12 Unilateral primary osteoarthritis, left knee (principal); M79.7 Fibromyalgia; K21.9 Gastro-esophageal reflux disease without esophagitis; M45.9 Ankylosing spondylitis of unspecified sites in spine; G90.50 Complex regional pain syndrome I, unspecified; G40.909 Epilepsy, unspecified, not intractable, without status epilepticus; E78.00 Pure hypercholesterolemia, unspecified; Z79.899 Other long term (current) drug therapy
CPT/HCPCS: 36415; 80048; 85014; 85018; 85049; 86850; 86900; 86901; 96365; 96366; 96375; A9270-GY; G0378; J0690; J1100; J1885; J2250; J2270; J2405; J2704; J2795; J3010; J3490

== ENCOUNTER 2020-07-08 05:50 | Observation (INO) ==
[2020-07-08] MEDS ORDERED: Lactated Ringers 1000 ml BAG 1,000 ML IV SCH ×2 (06:00→12:00)
[2020-07-08] MEDS ORDERED: Buffered Lidocaine 1% SYRIN 1 ml INTRADERM ONE (06:00)
[2020-07-08] MEDS ORDERED: ceFAZolin 2 GM PREMIX 2 GM/50 ML BAG ONE (06:12)
[2020-07-08] MEDS ORDERED: Propofol 10 MG/ML 20 ML BTL ONE (06:52)
[2020-07-08] MEDS ORDERED: Lidocaine 2% PF 5 ML VIAL ONE (06:52)
[2020-07-08] MEDS ORDERED: Rocuronium 50 mg VIAL 10 mg/ml 5 ml VIAL (50 mg) ONE ×2 (06:54→08:48)
[2020-07-08] MEDS ORDERED: fentaNYL 100 mcg/2 ml 50 MCG/ML VIAL ONE ×5 (06:56→11:25)
[2020-07-08] MEDS ORDERED: Bupivacaine 0.5% SDV PF 30ML VIAL ONE (07:18)
[2020-07-08] MEDS ORDERED: Bupivacaine 0.25% SDV 30 ML ONE (07:18)
[2020-07-08] MEDS ORDERED: Lidocaine 2% PF 10 ML AMP ONE (07:19)
[2020-07-08] MEDS ORDERED: Midazolam 5 mg/5 ml VIAL 1 mg/ml 5 ml VIAL (5 mg) ONE (07:25)
[2020-07-08] MEDS ORDERED: Sodium Citrate/Citric Acid LIQ 15 ML UDC ONE (07:41)
[2020-07-08] MEDS ORDERED: Ondansetron 4 mg VIAL 2 MG/ML 2 ml VIAL ONE (08:33)
[2020-07-08] MEDS ORDERED: Ondansetron 4 mg VIAL 2 MG/ML 2 ml VIAL IV PRN (09:51)
[2020-07-08] MEDS: fentaNYL 100 mcg/2 ml 50 MCG/ML VIAL IV PRN ×3 (10:12→11:26)
[2020-07-08] MEDS ORDERED: Magnesium Hydroxide LIQ 30 ML UDC PO PRN (11:53)
[2020-07-08] MEDS ORDERED: diPHENhydraMINE 25 mg TAB PO PRN (11:53)
[2020-07-08] MEDS ORDERED: diPHENhydraMINE IV 50 MG/ML 1 ml VIAL (BENADRYL) IV PRN (11:53)
[2020-07-08] MEDS ORDERED: Lactulose 30 ml UDC PO PRN (11:53)
[2020-07-08] MEDS ORDERED: ceFAZolin 1 GM ADVAN 1 GM in NS 0.9% 50 ML 50 ML IVPB SCH (12:00)
[2020-07-08] MEDS: ceFAZolin 1 GM ADVAN 1 GM in NS 0.9% 50 ML 50 ML IVPB SCH (16:02)
[2020-07-08] MEDS ORDERED: PRASTERONE 50 MG PO SCH (18:00)
[2020-07-08] MEDS: Magnesium Hydroxide LIQ 30 ML UDC PO SCH (20:32)
[2020-07-08] MEDS: CMCS:Cyclosporine 0.05% OPHTH (NF) 0.4 ML VIAL BOTH EYES SCH (21:01)
[2020-07-09] MEDS: ceFAZolin 1 GM ADVAN 1 GM in NS 0.9% 50 ML 50 ML IVPB SCH ×2 (00:02→08:07)
[2020-07-09 05:56] LABS: Hematocrit 36 % (35-47); Mean Platelet Volume 9.5 fL (7.4-10.4); Platelet Count 149 10^3/uL (150-450)
[2020-07-09 06:14] LABS: Calcium 8.5 mg/dL (8.6-10.3); EGFR African American 67.9 (>60); EGFR Non-African American 56.1 (>60); Potassium 3.4 mmol/L (3.5-5.0)
[2020-07-09] MEDS: Magnesium Hydroxide LIQ 30 ML UDC PO SCH (08:07)
[2020-07-09] MEDS: CMCS:Cyclosporine 0.05% OPHTH (NF) 0.4 ML VIAL BOTH EYES SCH (08:09)
[2020-07-09] MEDS ORDERED: Fluticasone NASAL SPRAY 50MCG 16 gm SPRAY BTL BOTH NARES SCH (09:00)
[2020-07-09] MEDS ORDERED: Vitamin THERAPEUTIC TAB PO SCH (09:00)
[2020-07-09 11:25] VITALS: BP 98/57
== END 2020-07-09 14:15 | disposition home or self-care (01) ==
LOC: AA 05:50 → INTOOBSV 05:50 → EDSTATUS 07:30 → SSU 12:35
PROVIDERS: ADMIT Orthopaedic Surgery; ATTEND Orthopaedic Surgery